=== PATIENT | female | born 1940 | race Caucasian/White ===

== ENCOUNTER 2018-06-06 11:32 | Inpatient (IN) ==
[2018-06-06] MEDS ORDERED: SODIUM CHLORIDE 0.9% 2,000 ML IV STA (11:45)
[2018-06-06] MEDS ORDERED: ALBUTEROL 2.5 MG/3 ML NEB RESP TX STA (12:17)
[2018-06-06 12:24] LABS: Basophils % 0.3 % (0.0-0.8); Eosinophils % 0.5 % (0.00-10.9); Hematocrit 29.2 VOL% (35.7-47.0); Hemoglobin 9.4 GM/DL (12.0-16.0); Immature Granulocytes % 0.5 %; Immature Granulocytes Absolute 0.04 #; Lymphocytes # 0.7 10*3/uL (1.4-4.0); Lymphocytes % 9.3 % (21.3-54.2); Mean Corpuscular HGB Conc 32.2 GM/DL (32-36); Mean Corpuscular Volume 84.9 FL (87-102); Mean Platelet Volume 10.3 FL (9.6-12.0); Monocytes % 6.1 % (1.7-12.7); Neutrophils % 83.3 % (38.7-73.9); Platelet Count 178 T/CUMM (130-400); Red Blood Count 3.44 MC/CUMM (3.8-5.5); Red Cell Distribution Width 13.8 % (9.3-17.3); White Blood Count 7.3 T/CUMM (4-12)
[2018-06-06 12:32] LABS: INR 1.1; PT Patient Result 12.3 SECS
[2018-06-06 12:44] LABS: Albumin 2.8 G/DL (3.4-5.0); Bilirubin,Total 1.6 MG/DL (0.2-1.0); Calcium 8.3 MG/DL (8.5-10.1); Osmolality,Calculated 276.1 MOS/KG (273-304); Total Protein 6.1 G/DL (6.4-8.3)
[2018-06-06 12:51] LABS: ABG Base Excess -2.4 MMOL/L (-2.5-2.5); ABG HCO3 22.3 MMOL/L (20-26); ABG Oxygen Saturation 93.3 % (95-100); ABG PCO2 41.4 MM HG (35-48); ABG PH 7.352 (7.35-7.45); ABG PO2 71.9 MM HG (80-95); ABG TCO2 21.5 MMOL/L (23-27)
[2018-06-06] MEDS ORDERED: PIPERACILLIN/TAZOBACTAM 3,375 MG in SODIUM CHLORIDE 0.9% 100 ML IV STA (12:54)
[2018-06-06 12:57] LABS: Amorphous Crystals,Urine Occasional /HPF (Few); Apearance,Urine CLOUDY (Clear); Blood, Urine Negative (Negative); Glucose,Urine (UA) 50 mg/dL (Negative); Ketones,Urine Negative (Negative); Mucus,Urine Many /LPF (Occasional); Nitrite,Urine Negative (Negative); Protein,Urine Negative; RBC,Urine 3 /HPF (0-4); Squamous Epithelial Cell,Urine Occasional /HPF (0-10); Urine Color Amber (Yellow); Urine Specific Gravity 1.025 (1.001-1.035)
[2018-06-06 12:58] LABS: Bilirubin,Urine Small mg/dL (Negative)
[2018-06-06] MEDS ORDERED: ONDANSETRON 4 MG/2 ML VIAL IV PRN (13:26)
[2018-06-06] MEDS ORDERED: PROMETHAZINE 25 MG/1 ML VIAL IM PRN (13:26)
[2018-06-06] MEDS ORDERED: ACETAMINOPHEN 325 MG TABLET PO PRN (13:26)
[2018-06-06] MEDS ORDERED: FUROSEMIDE 40 MG/4 ML VIAL IV STA (13:29)
[2018-06-06] MEDS ORDERED: PANTOPRAZOLE 40 MG TABLET PO SCH (13:30)
[2018-06-06] MEDS ORDERED: ONDANSETRON 4 MG TABLET PO PRN (13:30)
[2018-06-06] MEDS ORDERED: ENOXAPARIN 40 MG/0.4 ML SYRINGE SUBCUT SCH (13:30)
[2018-06-06] MEDS ORDERED: ENOXAPARIN 40 MG/0.4 ML SYRINGE SUBCUT STA (13:34)
[2018-06-06 13:54] LABS: Thyroid Stimulating Hormone 2.06 uIU/ml (0.358-3.74)
[2018-06-06] MEDS ORDERED: SODIUM CHLORIDE 0.9% 1,000 ML IV STA (13:58)
[2018-06-06] MEDS ORDERED: LEVOFLOXACIN INJ 750 MG in PREMIX 1 EACH IV STA (13:59)
[2018-06-06] MEDS ORDERED: GABAPENTIN 300 MG CAPSULE PO SCH (15:00)
[2018-06-06] MEDS ORDERED: NOREPINEPHRINE 8 MG in SODIUM CHLORIDE 0.9% 242 ML IV PRN (15:26)
[2018-06-06] MEDS ORDERED: GLUCAGON 1 MG VIAL IM PRN (15:46)
[2018-06-06] MEDS ORDERED: DEXTROSE 50% 25 GM/50 ML VIAL IV PRN (15:46)
[2018-06-06] MEDS: methylPREDNISolone SOD SUC 40 MG/1 ML VIAL IV SCH (16:15)
[2018-06-06] MEDS: LACTATED RINGERS 1,000 ML IV SCH ×2 (16:15→23:41)
[2018-06-06] MEDS ORDERED: NOREPINEPHRINE 4 MG/4 ML VIAL IV ONE (16:51)
[2018-06-06 17:01] LABS: Calcium 7.4 MG/DL (8.5-10.1); Osmolality,Calculated 280.7 MOS/KG (273-304)
[2018-06-06] MEDS: INSULIN LISPRO 100 UNIT/ML SUBCUT SCH (19:04)
[2018-06-06] MEDS: BENZONATATE 100 MG CAPSULE PO PRN (19:07)
[2018-06-06] MEDS ORDERED: MAGNESIUM SULF RIDER 4 GM in PREMIX 1 EACH IV PRN (19:19)
[2018-06-06] MEDS: POTASSIUM CHLORIDE RIDER 10 MEQ in PREMIX 1 EACH IV PRN (19:59)
[2018-06-06] MEDS: MAGNESIUM SULF RIDER 2 GM in PREMIX 1 EACH IV PRN (19:59)
[2018-06-06] MEDS: ALBUTEROL/IPRATROPIUM 3 ML NEB RESP TX SCH (20:15)
[2018-06-06] MEDS: DORNASE ALFA 2.5 MG/2.5 ML VIAL RESP TX SCH (20:23)
[2018-06-06] MEDS: SIMVASTATIN 20 MG TABLET PO SCH (20:39)
[2018-06-06] MEDS ORDERED: METOPROLOL TARTRATE 25 MG TABLET PO SCH (21:00)
[2018-06-06] MEDS ORDERED: TERAZOSIN 5 MG CAPSULE PO SCH (21:00)
[2018-06-06] MEDS: PIPERACILLIN/TAZOBACTAM 3,375 MG in SODIUM CHLORIDE 0.9% 100 ML IV SCH (21:57)
[2018-06-07] MEDS: INSULIN LISPRO 100 UNIT/ML SUBCUT SCH ×4 (00:18→17:56)
[2018-06-07] MEDS: ALBUTEROL/IPRATROPIUM 3 ML NEB RESP TX SCH ×4 (00:58→19:20)
[2018-06-07] MEDS: methylPREDNISolone SOD SUC 40 MG/1 ML VIAL IV SCH ×3 (01:32→15:52)
[2018-06-07 04:21] LABS: ABG Base Excess -3.4 MMOL/L (-2.5-2.5); ABG HCO3 21.6 MMOL/L (20-26); ABG Oxygen Saturation 98.6 % (95-100); ABG PCO2 37.2 MM HG (35-48); Allen Test Positive; Pt O2 Delivery Device Other
[2018-06-07] MEDS: LACTATED RINGERS 1,000 ML IV SCH ×3 (04:22→18:01)
[2018-06-07 04:28] LABS: Eosinophils % 0.2 % (0.00-10.9); Hematocrit 24.7 VOL% (35.7-47.0); Hemoglobin 7.8 GM/DL (12.0-16.0); Immature Granulocytes % 0.6 %; Immature Granulocytes Absolute 0.03 #; Lymphocytes # 0.3 10*3/uL (1.4-4.0); Lymphocytes % 7.2 % (21.3-54.2); Mean Corpuscular HGB Conc 31.6 GM/DL (32-36); Mean Corpuscular Volume 85.8 FL (87-102); Mean Platelet Volume 10.5 FL (9.6-12.0); Monocytes % 3.8 % (1.7-12.7); Neutrophils % 88.2 % (38.7-73.9); Platelet Count 158 T/CUMM (130-400); Red Blood Count 2.88 MC/CUMM (3.8-5.5); Red Cell Distribution Width 13.7 % (9.3-17.3); White Blood Count 4.7 T/CUMM (4-12)
[2018-06-07 04:53] LABS: Albumin 1.8 G/DL (3.4-5.0); Bilirubin,Total 0.7 MG/DL (0.2-1.0); Calcium 8.1 MG/DL (8.5-10.1); Osmolality,Calculated 281.5 MOS/KG (273-304); Risk Ratio 3.92; Total Protein 5.3 G/DL (6.4-8.3); VLDL CHOLESTEROL 14.8 MG/DL
[2018-06-07] MEDS: PIPERACILLIN/TAZOBACTAM 3,375 MG in SODIUM CHLORIDE 0.9% 100 ML IV SCH ×3 (05:40→21:57)
[2018-06-07] MEDS: DORNASE ALFA 2.5 MG/2.5 ML VIAL RESP TX SCH ×2 (07:25→19:20)
[2018-06-07] MEDS ORDERED: SODIUM CHLORIDE 0.9% 1,000 ML IV PRN ×2 (08:31→08:55)
[2018-06-07] MEDS ORDERED: FUROSEMIDE 20 MG/2 ML VIAL IV ONE ×2 (08:32→17:30)
[2018-06-07] MEDS ORDERED: RALOXIFENE 60 MG TABLET PO SCH (09:00)
[2018-06-07] MEDS ORDERED: NON-FORMULARY MEDICATION (Biotin [Biotin] 5,000 MCG) PO SCH (09:00)
[2018-06-07 09:28] LABS: % Iron Saturation 17.7 % (18-50)
[2018-06-07] MEDS ORDERED: VANCOMYCIN INJ 1,750 MG in SODIUM CHLORIDE 0.9% 500 ML IV ONE (09:30)
[2018-06-07 09:36] LABS: Folate > 24.0 NG/ML (5.4-24.0); Vitamin B12 750 PG/ML (211-911)
[2018-06-07] MEDS: PANTOPRAZOLE 40 MG TABLET PO SCH (10:07)
[2018-06-07] MEDS: ASPIRIN EC 81 MG TABLET PO SCH (10:08)
[2018-06-07] MEDS: CALCIUM (CARBONATE)/VITAMIN D 600 MG-400 UNIT TABLET PO SCH (10:08)
[2018-06-07] MEDS: BENZONATATE 100 MG CAPSULE PO PRN ×2 (10:09→23:30)
[2018-06-07] MEDS: SERTRALINE 100 MG TABLET PO SCH (10:09)
[2018-06-07] MEDS: CHOLECALCIFEROL 1,000 UNIT TABLET PO SCH (10:09)
[2018-06-07] MEDS: MULTIVITAMIN (CENTRUM) TABLET PO SCH (10:09)
[2018-06-07] MEDS ORDERED: ALBUTEROL/IPRATROPIUM 3 ML NEB RESP TX PRN (10:46)
[2018-06-07] MEDS: MONTELUKAST 10 MG TABLET PO SCH (13:12)
[2018-06-07] MEDS ORDERED: BISACODYL 10 MG SUPP RECTAL ONE ×2 (13:48→21:14)
[2018-06-07] MEDS: METOPROLOL SUCCINATE XL 25 MG TABLET PO SCH ×2 (14:16→21:56)
[2018-06-07] MEDS: ENOXAPARIN 40 MG/0.4 ML SYRINGE SUBCUT SCH (15:05)
[2018-06-07] MEDS: POLYETHYLENE GLYCOL POWDER 17 GM PACK PO SCH (15:05)
[2018-06-07] MEDS: LEVOFLOXACIN INJ 750 MG in PREMIX 1 EACH IV SCH (15:55)
[2018-06-07 19:34] LABS: Hematocrit 29.8 VOL% (35.7-47.0); Hemoglobin 9.5 GM/DL (12.0-16.0)
[2018-06-07] MEDS: SIMVASTATIN 20 MG TABLET PO SCH (21:56)
[2018-06-07] MEDS: VANCOMYCIN INJ 1,250 MG in SODIUM CHLORIDE 0.9% 250 ML IV SCH (21:57)
[2018-06-08] MEDS: methylPREDNISolone SOD SUC 40 MG/1 ML VIAL IV SCH ×3 (00:11→16:02)
[2018-06-08] MEDS: INSULIN LISPRO 100 UNIT/ML SUBCUT SCH ×4 (00:11→18:35)
[2018-06-08] MEDS: LACTATED RINGERS 1,000 ML IV SCH ×3 (00:11→18:36)
[2018-06-08] MEDS: ALBUTEROL/IPRATROPIUM 3 ML NEB RESP TX SCH ×4 (00:24→19:07)
[2018-06-08 04:50] LABS: Basophils % 0.1 % (0.0-0.8); Hematocrit 29.1 VOL% (35.7-47.0); Hemoglobin 9.4 GM/DL (12.0-16.0); Immature Granulocytes % 0.9 %; Immature Granulocytes Absolute 0.07 #; Lymphocytes # 0.3 10*3/uL (1.4-4.0); Lymphocytes % 4.1 % (21.3-54.2); Mean Corpuscular HGB Conc 32.3 GM/DL (32-36); Mean Corpuscular Volume 85.3 FL (87-102); Mean Platelet Volume 9.9 FL (9.6-12.0); Monocytes % 4.3 % (1.7-12.7); Neutrophils % 90.6 % (38.7-73.9); Platelet Count 186 T/CUMM (130-400); Red Blood Count 3.41 MC/CUMM (3.8-5.5); Red Cell Distribution Width 13.7 % (9.3-17.3); White Blood Count 8.1 T/CUMM (4-12)
[2018-06-08 05:06] LABS: Calcium 8.4 MG/DL (8.5-10.1); Osmolality,Calculated 286.3 MOS/KG (273-304)
[2018-06-08 05:22] LABS: Anisocytosis Slight; Lymphocytes 4 % (20-55); Segmented Neutrophils 95 % (50-85); Total Cells Counted 100
[2018-06-08] MEDS: PIPERACILLIN/TAZOBACTAM 3,375 MG in SODIUM CHLORIDE 0.9% 100 ML IV SCH ×3 (05:22→20:50)
[2018-06-08 05:23] LABS: Microcytosis 1+; Ovalocytes Slight
[2018-06-08 05:24] LABS: Platelet Estimate Normal
[2018-06-08] MEDS: MAGNESIUM SULF RIDER 2 GM in PREMIX 1 EACH IV PRN (06:24)
[2018-06-08] MEDS: DORNASE ALFA 2.5 MG/2.5 ML VIAL RESP TX SCH ×2 (07:17→19:07)
[2018-06-08] MEDS ORDERED: FUROSEMIDE 40 MG/4 ML VIAL IV ONE (07:49)
[2018-06-08] MEDS: BENZONATATE 100 MG CAPSULE PO PRN (08:23)
[2018-06-08] MEDS ORDERED: PROPOFOL 1,000 MG/100 ML BOTTLE IV ONE (08:29)
[2018-06-08] MEDS: PROPOFOL 1,000 MG/100 ML BOTTLE IV SCH ×5 (08:50→22:27)
[2018-06-08] MEDS: POLYETHYLENE GLYCOL POWDER 17 GM PACK PO SCH (10:00)
[2018-06-08] MEDS: METOPROLOL SUCCINATE XL 25 MG TABLET PO SCH (10:00)
[2018-06-08] MEDS: SERTRALINE 100 MG TABLET PO SCH (10:00)
[2018-06-08] MEDS: PANTOPRAZOLE 40 MG TABLET PO SCH (10:00)
[2018-06-08] MEDS: MONTELUKAST 10 MG TABLET PO SCH (10:00)
[2018-06-08] MEDS: CHOLECALCIFEROL 1,000 UNIT TABLET PO SCH (10:00)
[2018-06-08] MEDS: ASPIRIN EC 81 MG TABLET PO SCH (10:00)
[2018-06-08] MEDS: DILTIAZEM CD 120 MG CAPSULE PO SCH (10:00)
[2018-06-08] MEDS: CALCIUM (CARBONATE)/VITAMIN D 600 MG-400 UNIT TABLET PO SCH (10:03)
[2018-06-08] MEDS: MULTIVITAMIN (CENTRUM) TABLET PO SCH (10:05)
[2018-06-08 10:09] LABS: ABG Base Excess 0.7 MMOL/L (-2.5-2.5); ABG HCO3 25.1 MMOL/L (20-26); ABG Oxygen Saturation 99.3 % (95-100); ABG PCO2 49.1 MM HG (35-48); ABG PH 7.346 (7.35-7.45); ABG TCO2 24.7 MMOL/L (23-27); Allen Test Positive; Pt O2 Delivery Device Ventilator
[2018-06-08] MEDS: VANCOMYCIN INJ 1,250 MG in SODIUM CHLORIDE 0.9% 250 ML IV SCH ×2 (12:40→23:05)
[2018-06-08] MEDS: ENOXAPARIN 40 MG/0.4 ML SYRINGE SUBCUT SCH (16:01)
[2018-06-08] MEDS: LEVOFLOXACIN INJ 750 MG in PREMIX 1 EACH IV SCH (16:02)
[2018-06-08] MEDS: METOPROLOL TARTRATE 25 MG TABLET PO SCH (20:49)
[2018-06-08] MEDS: guaiFENesin 200 MG/10 ML UDCUP PO SCH (20:49)
[2018-06-08] MEDS: ROSUVASTATIN 10 MG TABLET PO SCH (20:53)
[2018-06-09] MEDS: INSULIN LISPRO 100 UNIT/ML SUBCUT SCH ×4 (00:04→17:51)
[2018-06-09] MEDS: methylPREDNISolone SOD SUC 40 MG/1 ML VIAL IV SCH ×3 (00:39→16:11)
[2018-06-09] MEDS: guaiFENesin 200 MG/10 ML UDCUP PO SCH ×6 (00:39→20:05)
[2018-06-09] MEDS: ALBUTEROL/IPRATROPIUM 3 ML NEB RESP TX SCH ×4 (01:15→19:02)
[2018-06-09] MEDS: PROPOFOL 1,000 MG/100 ML BOTTLE IV SCH ×6 (01:28→21:28)
[2018-06-09] MEDS: LACTATED RINGERS 1,000 ML IV SCH ×3 (01:42→20:04)
[2018-06-09 04:30] LABS: Hematocrit 29.2 VOL% (35.7-47.0); Hemoglobin 9.4 GM/DL (12.0-16.0); Immature Granulocytes % 0.5 %; Immature Granulocytes Absolute 0.03 #; Lymphocytes # 0.3 10*3/uL (1.4-4.0); Lymphocytes % 4.2 % (21.3-54.2); Mean Corpuscular HGB Conc 32.2 GM/DL (32-36); Mean Corpuscular Volume 85.6 FL (87-102); Mean Platelet Volume 10.9 FL (9.6-12.0); Monocytes % 4.8 % (1.7-12.7); Neutrophils % 90.5 % (38.7-73.9); Platelet Count 230 T/CUMM (130-400); Red Blood Count 3.41 MC/CUMM (3.8-5.5); Red Cell Distribution Width 14.1 % (9.3-17.3)
[2018-06-09 04:54] LABS: Calcium 8.8 MG/DL (8.5-10.1); Osmolality,Calculated 281.5 MOS/KG (273-304)
[2018-06-09 05:01] LABS: Prealbumin 14.3 MG/DL (20-40)
[2018-06-09 05:16] LABS: ABG Base Excess 2.1 MMOL/L (-2.5-2.5); ABG HCO3 26.3 MMOL/L (20-26); ABG PH 7.341 (7.35-7.45); ABG TCO2 26.3 MMOL/L (23-27)
[2018-06-09 05:21] LABS: Hypochromasia Slight; Lymphocytes 1 % (20-55); Pappenheimer Bodies Few; Platelet Estimate Adequate; Segmented Neutrophils 97 % (50-85); Total Cells Counted 100
[2018-06-09] MEDS: PIPERACILLIN/TAZOBACTAM 3,375 MG in SODIUM CHLORIDE 0.9% 100 ML IV SCH ×3 (05:35→20:04)
[2018-06-09] MEDS: DORNASE ALFA 2.5 MG/2.5 ML VIAL RESP TX SCH ×2 (08:09→19:09)
[2018-06-09] MEDS: MONTELUKAST 10 MG TABLET PO SCH (10:07)
[2018-06-09] MEDS: CALCIUM (CARBONATE)/VITAMIN D 600 MG-400 UNIT TABLET PO SCH (10:07)
[2018-06-09] MEDS: SERTRALINE 100 MG TABLET PO SCH (10:07)
[2018-06-09] MEDS: METOPROLOL TARTRATE 25 MG TABLET PO SCH ×2 (10:07→20:05)
[2018-06-09] MEDS: DILTIAZEM CD 120 MG CAPSULE PO SCH (10:08)
[2018-06-09] MEDS: VANCOMYCIN INJ 1,250 MG in SODIUM CHLORIDE 0.9% 250 ML IV SCH ×2 (10:09→22:11)
[2018-06-09] MEDS: MULTIVITAMIN (CENTRUM) TABLET PO SCH (10:13)
[2018-06-09] MEDS: CHOLECALCIFEROL 1,000 UNIT TABLET PO SCH (10:13)
[2018-06-09 11:22] LABS: ABG Base Excess 3.6 MMOL/L (-2.5-2.5); ABG HCO3 27.7 MMOL/L (20-26); ABG Oxygen Saturation 99.3 % (95-100); ABG PCO2 46.7 MM HG (35-48); ABG PH 7.401 (7.35-7.45); ABG TCO2 26.6 MMOL/L (23-27); Pt O2 Delivery Device Ventilator
[2018-06-09] MEDS: ASPIRIN EC 81 MG TABLET PO SCH (11:23)
[2018-06-09] MEDS: PANTOPRAZOLE 40 MG TABLET PO SCH (11:24)
[2018-06-09] MEDS: FLUCONAZOLE INJ 100 MG in IV BAG 1 EACH IV SCH (15:19)
[2018-06-09] MEDS: POLYETHYLENE GLYCOL POWDER 17 GM PACK PO SCH (15:55)
[2018-06-09] MEDS: ASPIRIN CHEW 81 MG TABLET PO SCH (16:06)
[2018-06-09] MEDS: LEVOFLOXACIN INJ 750 MG in PREMIX 1 EACH IV SCH (16:10)
[2018-06-09] MEDS: ENOXAPARIN 40 MG/0.4 ML SYRINGE SUBCUT SCH (16:11)
[2018-06-09] MEDS: LANSOPRAZOLE ODT 30 MG TABLET PO SCH (16:12)
[2018-06-09] MEDS: ROSUVASTATIN 10 MG TABLET PO SCH (20:05)
[2018-06-09] MEDS: DILTIAZEM 60 MG TABLET PO SCH (20:05)
[2018-06-10] MEDS: INSULIN LISPRO 100 UNIT/ML SUBCUT SCH ×4 (00:19→17:34)
[2018-06-10] MEDS: ALBUTEROL/IPRATROPIUM 3 ML NEB RESP TX SCH ×4 (00:35→18:42)
[2018-06-10] MEDS: guaiFENesin 200 MG/10 ML UDCUP PO SCH ×6 (00:37→21:27)
[2018-06-10] MEDS: methylPREDNISolone SOD SUC 40 MG/1 ML VIAL IV SCH ×3 (00:37→16:02)
[2018-06-10] MEDS: PROPOFOL 1,000 MG/100 ML BOTTLE IV SCH ×5 (00:48→10:40)
[2018-06-10 04:06] LABS: ABG Base Excess 5.1 MMOL/L (-2.5-2.5); ABG HCO3 29.8 MMOL/L (20-26); ABG Oxygen Saturation 98.1 % (95-100); ABG PCO2 44.3 MM HG (35-48); ABG PH 7.445 (7.35-7.45); ABG PO2 133.1 MM HG (80-95); ABG TCO2 31.1 MMOL/L (23-27); Allen Test Positive; Pt O2 Delivery Device Ventilator
[2018-06-10] MEDS: MORPHINE 4 MG/1 ML VIAL IV PRN ×2 (04:19→06:41)
[2018-06-10] MEDS: PIPERACILLIN/TAZOBACTAM 3,375 MG in SODIUM CHLORIDE 0.9% 100 ML IV SCH ×3 (05:14→21:27)
[2018-06-10 05:42] LABS: Eosinophils % 0.2 % (0.00-10.9); Hematocrit 27.3 VOL% (35.7-47.0); Hemoglobin 8.7 GM/DL (12.0-16.0); Immature Granulocytes % 0.4 %; Immature Granulocytes Absolute 0.02 #; Lymphocytes # 0.2 10*3/uL (1.4-4.0); Lymphocytes % 3.9 % (21.3-54.2); Mean Corpuscular HGB Conc 31.9 GM/DL (32-36); Mean Corpuscular Volume 85.8 FL (87-102); Mean Platelet Volume 10.6 FL (9.6-12.0); Monocytes % 3.5 % (1.7-12.7); Platelet Count 210 T/CUMM (130-400); Red Blood Count 3.18 MC/CUMM (3.8-5.5); White Blood Count 4.6 T/CUMM (4-12)
[2018-06-10 05:51] LABS: Calcium 8.2 MG/DL (8.5-10.1); Osmolality,Calculated 280.5 MOS/KG (273-304)
[2018-06-10 06:06] LABS: Band Neutrophils 1 % (0-10); Hypochromasia 1+; Lymphocytes 3 % (20-55); Microcytosis Slight; Ovalocytes Slight; Platelet Estimate Adequate; Segmented Neutrophils 91 % (50-85); Total Cells Counted 100
[2018-06-10] MEDS: MAGNESIUM SULF RIDER 2 GM in PREMIX 1 EACH IV PRN (06:40)
[2018-06-10] MEDS: DORNASE ALFA 2.5 MG/2.5 ML VIAL RESP TX SCH ×2 (07:14→18:47)
[2018-06-10] MEDS ORDERED: LANSOPRAZOLE ODT 30 MG TABLET PO SCH (09:00)
[2018-06-10] MEDS ORDERED: ASPIRIN CHEW 81 MG TABLET PO SCH (09:00)
[2018-06-10] MEDS: fentaNYL INJ 1,250 MCG in SODIUM CHLORIDE 0.9% 225 ML IV PRN ×3 (09:33→18:56)
[2018-06-10] MEDS ORDERED: MAGNESIUM SULF RIDER 2 GM in PREMIX 1 EACH IV ONE (09:33)
[2018-06-10] MEDS: MIDAZOLAM 100 MG in SODIUM CHLORIDE 0.9% 80 ML IV SCH (09:33)
[2018-06-10] MEDS: CHOLECALCIFEROL 1,000 UNIT TABLET PO SCH (09:37)
[2018-06-10] MEDS: CALCIUM (CARBONATE)/VITAMIN D 600 MG-400 UNIT TABLET PO SCH (09:37)
[2018-06-10] MEDS: METOPROLOL TARTRATE 25 MG TABLET PO SCH ×2 (09:38→21:27)
[2018-06-10] MEDS: ASPIRIN CHEW 81 MG TABLET PO SCH (09:38)
[2018-06-10] MEDS: MONTELUKAST 10 MG TABLET PO SCH (09:38)
[2018-06-10] MEDS: MULTIVITAMIN (CENTRUM) TABLET PO SCH (09:40)
[2018-06-10] MEDS: POLYETHYLENE GLYCOL POWDER 17 GM PACK PO SCH (09:40)
[2018-06-10] MEDS: DILTIAZEM 60 MG TABLET PO SCH ×2 (09:40→21:27)
[2018-06-10] MEDS: LANSOPRAZOLE ODT 30 MG TABLET PO SCH (09:41)
[2018-06-10] MEDS: SERTRALINE 100 MG TABLET PO SCH (09:41)
[2018-06-10] MEDS: LACTATED RINGERS 1,000 ML IV SCH ×2 (09:41→21:35)
[2018-06-10] MEDS: VANCOMYCIN INJ 1,250 MG in SODIUM CHLORIDE 0.9% 250 ML IV SCH ×2 (10:04→22:57)
[2018-06-10] MEDS: FLUCONAZOLE INJ 100 MG in IV BAG 1 EACH IV SCH (12:35)
[2018-06-10] MEDS: ENOXAPARIN 40 MG/0.4 ML SYRINGE SUBCUT SCH (16:02)
[2018-06-10] MEDS: LEVOFLOXACIN INJ 750 MG in PREMIX 1 EACH IV SCH (16:03)
[2018-06-10] MEDS: ROSUVASTATIN 10 MG TABLET PO SCH (21:28)
[2018-06-10] MEDS: fentaNYL INJ 2,500 MCG in SODIUM CHLORIDE 0.9% 450 ML IV PRN (22:48)
[2018-06-11] MEDS: INSULIN LISPRO 100 UNIT/ML SUBCUT SCH ×4 (00:48→18:07)
[2018-06-11] MEDS: methylPREDNISolone SOD SUC 40 MG/1 ML VIAL IV SCH ×3 (00:53→16:12)
[2018-06-11] MEDS: guaiFENesin 200 MG/10 ML UDCUP PO SCH ×6 (00:53→20:25)
[2018-06-11] MEDS: ALBUTEROL/IPRATROPIUM 3 ML NEB RESP TX SCH ×4 (01:10→19:49)
[2018-06-11 03:13] LABS: ABG Base Excess 4.7 MMOL/L (-2.5-2.5); ABG HCO3 28.7 MMOL/L (20-26); ABG Oxygen Saturation 98.1 % (95-100); ABG PCO2 46.6 MM HG (35-48); ABG PH 7.416 (7.35-7.45); ABG TCO2 27.4 MMOL/L (23-27); Allen Test Positive; Pt O2 Delivery Device Ventilator
[2018-06-11 04:10] LABS: Hematocrit 27.9 VOL% (35.7-47.0); Immature Granulocytes % 0.8 %; Immature Granulocytes Absolute 0.04 #; Lymphocytes # 0.3 10*3/uL (1.4-4.0); Lymphocytes % 5.8 % (21.3-54.2); Mean Corpuscular HGB Conc 32.3 GM/DL (32-36); Mean Corpuscular Volume 85.8 FL (87-102); Monocytes % 3.9 % (1.7-12.7); Neutrophils % 89.5 % (38.7-73.9); Platelet Count 189 T/CUMM (130-400); Red Blood Count 3.25 MC/CUMM (3.8-5.5); Red Cell Distribution Width 13.9 % (9.3-17.3); White Blood Count 4.8 T/CUMM (4-12)
[2018-06-11 04:21] LABS: Osmolality,Calculated 280.5 MOS/KG (273-304)
[2018-06-11 05:11] LABS: HIV Antigen/Antibody Result Nonreactive (Nonreactive); Hepatitis B Surface Ag Quant < 0.10 Index; Hepatitis B Surface Ag Result Negative (Negative); Hepatitis C Virus Ab Result Negative (Negative)
[2018-06-11] MEDS: PIPERACILLIN/TAZOBACTAM 3,375 MG in SODIUM CHLORIDE 0.9% 100 ML IV SCH ×3 (05:55→20:26)
[2018-06-11] MEDS: fentaNYL INJ 2,500 MCG in SODIUM CHLORIDE 0.9% 450 ML IV PRN ×2 (07:24→16:11)
[2018-06-11] MEDS ORDERED: FUROSEMIDE 40 MG/4 ML VIAL IV ONE (07:25)
[2018-06-11] MEDS: DORNASE ALFA 2.5 MG/2.5 ML VIAL RESP TX SCH ×2 (07:25→19:56)
[2018-06-11] MEDS: MIDAZOLAM 100 MG in SODIUM CHLORIDE 0.9% 80 ML IV SCH ×2 (09:27→14:00)
[2018-06-11] MEDS: MONTELUKAST 10 MG TABLET PO SCH (09:28)
[2018-06-11] MEDS: DILTIAZEM 60 MG TABLET PO SCH ×2 (09:28→20:25)
[2018-06-11] MEDS: POLYETHYLENE GLYCOL POWDER 17 GM PACK PO SCH (09:28)
[2018-06-11] MEDS: MULTIVITAMIN (CENTRUM) TABLET PO SCH (09:29)
[2018-06-11] MEDS: CHOLECALCIFEROL 1,000 UNIT TABLET PO SCH (09:29)
[2018-06-11] MEDS: SERTRALINE 100 MG TABLET PO SCH (09:29)
[2018-06-11] MEDS: ASPIRIN CHEW 81 MG TABLET PO SCH (09:29)
[2018-06-11] MEDS: METOPROLOL TARTRATE 25 MG TABLET PO SCH ×2 (09:29→20:26)
[2018-06-11] MEDS: LANSOPRAZOLE ODT 30 MG TABLET PO SCH (09:29)
[2018-06-11] MEDS: CALCIUM (CARBONATE)/VITAMIN D 600 MG-400 UNIT TABLET PO SCH (09:29)
[2018-06-11] MEDS: PROPOFOL 1,000 MG/100 ML BOTTLE IV SCH (10:50)
[2018-06-11] MEDS: VANCOMYCIN INJ 1,250 MG in SODIUM CHLORIDE 0.9% 250 ML IV SCH ×2 (11:02→22:45)
[2018-06-11] MEDS: FLUCONAZOLE INJ 100 MG in IV BAG 1 EACH IV SCH (12:22)
[2018-06-11] MEDS: ENOXAPARIN 40 MG/0.4 ML SYRINGE SUBCUT SCH (14:04)
[2018-06-11] MEDS: LEVOFLOXACIN INJ 750 MG in PREMIX 1 EACH IV SCH (16:12)
[2018-06-11] MEDS: ROSUVASTATIN 10 MG TABLET PO SCH (20:25)
[2018-06-11] MEDS: cycloSPORINE OPH EMUL 1 VIAL BOTH EYES SCH (22:45)
[2018-06-12] MEDS: INSULIN LISPRO 100 UNIT/ML SUBCUT SCH ×5 (00:13→23:21)
[2018-06-12] MEDS: guaiFENesin 200 MG/10 ML UDCUP PO SCH ×6 (00:15→20:26)
[2018-06-12] MEDS: methylPREDNISolone SOD SUC 40 MG/1 ML VIAL IV SCH ×4 (00:16→23:53)
[2018-06-12] MEDS: fentaNYL INJ 2,500 MCG in SODIUM CHLORIDE 0.9% 450 ML IV PRN ×4 (00:40→23:53)
[2018-06-12] MEDS: ALBUTEROL/IPRATROPIUM 3 ML NEB RESP TX SCH ×4 (02:23→19:34)
[2018-06-12 03:26] LABS: ABG Base Excess 7.7 MMOL/L (-2.5-2.5); ABG HCO3 31.5 MMOL/L (20-26); ABG PCO2 45.5 MM HG (35-48); ABG PH 7.462 (7.35-7.45); ABG TCO2 29.2 MMOL/L (23-27); Allen Test Positive; Pt O2 Delivery Device Ventilator
[2018-06-12] MEDS: PIPERACILLIN/TAZOBACTAM 3,375 MG in SODIUM CHLORIDE 0.9% 100 ML IV SCH ×3 (05:21→20:25)
[2018-06-12 05:57] LABS: Hematocrit 29.4 VOL% (35.7-47.0); Hemoglobin 9.5 GM/DL (12.0-16.0); Immature Granulocytes % 1.5 %; Immature Granulocytes Absolute 0.08 #; Lymphocytes # 0.3 10*3/uL (1.4-4.0); Lymphocytes % 4.8 % (21.3-54.2); Mean Corpuscular HGB Conc 32.3 GM/DL (32-36); Mean Corpuscular Volume 84.5 FL (87-102); Mean Platelet Volume 9.8 FL (9.6-12.0); Neutrophils % 89.7 % (38.7-73.9); Platelet Count 200 T/CUMM (130-400); Red Blood Count 3.48 MC/CUMM (3.8-5.5); Red Cell Distribution Width 13.5 % (9.3-17.3); White Blood Count 5.2 T/CUMM (4-12)
[2018-06-12 06:11] LABS: Osmolality,Calculated 281.7 MOS/KG (273-304)
[2018-06-12 06:22] LABS: Prealbumin 12.4 MG/DL (20-40)
[2018-06-12 06:24] LABS: Hypochromasia 1+; Lymphocytes 2 % (20-55); Ovalocytes Slight; Platelet Estimate Adequate; Segmented Neutrophils 97 % (50-85); Total Cells Counted 100
[2018-06-12 06:25] LABS: Microcytosis Slight
[2018-06-12] MEDS: DORNASE ALFA 2.5 MG/2.5 ML VIAL RESP TX SCH ×2 (06:59→19:45)
[2018-06-12] MEDS: MIDAZOLAM 100 MG in SODIUM CHLORIDE 0.9% 80 ML IV SCH ×2 (09:36→16:08)
[2018-06-12] MEDS: MULTIVITAMIN (CENTRUM) TABLET PO SCH (09:38)
[2018-06-12] MEDS: CALCIUM (CARBONATE)/VITAMIN D 600 MG-400 UNIT TABLET PO SCH (09:38)
[2018-06-12] MEDS: CHOLECALCIFEROL 1,000 UNIT TABLET PO SCH (09:38)
[2018-06-12] MEDS: DILTIAZEM 60 MG TABLET PO SCH ×2 (09:38→20:26)
[2018-06-12] MEDS: METOPROLOL TARTRATE 25 MG TABLET PO SCH ×2 (09:39→20:26)
[2018-06-12] MEDS: POLYETHYLENE GLYCOL POWDER 17 GM PACK PO SCH (09:39)
[2018-06-12] MEDS: LANSOPRAZOLE ODT 30 MG TABLET PO SCH (09:39)
[2018-06-12] MEDS: ASPIRIN CHEW 81 MG TABLET PO SCH (09:40)
[2018-06-12] MEDS: MONTELUKAST 10 MG TABLET PO SCH (09:40)
[2018-06-12] MEDS: SERTRALINE 100 MG TABLET PO SCH (09:40)
[2018-06-12] MEDS: MAGNESIUM SULF RIDER 2 GM in PREMIX 1 EACH IV PRN (09:46)
[2018-06-12] MEDS: POTASSIUM CHLORIDE RIDER 10 MEQ in PREMIX 1 EACH IV PRN (09:49)
[2018-06-12] MEDS: cycloSPORINE OPH EMUL 1 VIAL BOTH EYES SCH ×2 (09:50→20:28)
[2018-06-12] MEDS: PROPOFOL 1,000 MG/100 ML BOTTLE IV SCH (10:01)
[2018-06-12] MEDS: VANCOMYCIN INJ 1,250 MG in SODIUM CHLORIDE 0.9% 250 ML IV SCH ×2 (11:26→22:08)
[2018-06-12] MEDS: FLUCONAZOLE INJ 100 MG in IV BAG 1 EACH IV SCH (11:46)
[2018-06-12] MEDS: ENOXAPARIN 40 MG/0.4 ML SYRINGE SUBCUT SCH (15:36)
[2018-06-12] MEDS: LEVOFLOXACIN INJ 750 MG in PREMIX 1 EACH IV SCH (15:50)
[2018-06-12] MEDS: ROSUVASTATIN 10 MG TABLET PO SCH (20:26)
[2018-06-12] MEDS ORDERED: BISACODYL 10 MG SUPP RECTAL PRN (23:57)
[2018-06-13] MEDS: guaiFENesin 200 MG/10 ML UDCUP PO SCH ×6 (00:18→20:16)
[2018-06-13] MEDS: ALBUTEROL/IPRATROPIUM 3 ML NEB RESP TX SCH ×4 (00:59→19:15)
[2018-06-13] MEDS ORDERED: hydrALAZINE 20 MG/1 ML VIAL ONE (02:20)
[2018-06-13] MEDS ORDERED: hydrALAZINE 20 MG/1 ML VIAL IV ONE (02:25)
[2018-06-13 05:01] LABS: ABG HCO3 30.9 MMOL/L (20-26); ABG Oxygen Saturation 99.2 % (95-100); ABG TCO2 28.8 MMOL/L (23-27)
[2018-06-13] MEDS: PIPERACILLIN/TAZOBACTAM 3,375 MG in SODIUM CHLORIDE 0.9% 100 ML IV SCH ×3 (05:39→20:16)
[2018-06-13 05:57] LABS: Basophils % 0.2 % (0.0-0.8); Hemoglobin 9.5 GM/DL (12.0-16.0); Immature Granulocytes % 0.9 %; Immature Granulocytes Absolute 0.05 #; Lymphocytes # 0.3 10*3/uL (1.4-4.0); Lymphocytes % 4.9 % (21.3-54.2); Mean Corpuscular HGB Conc 31.7 GM/DL (32-36); Mean Corpuscular Volume 85.7 FL (87-102); Monocytes % 4.7 % (1.7-12.7); Neutrophils % 89.3 % (38.7-73.9); Platelet Count 193 T/CUMM (130-400); Red Cell Distribution Width 13.3 % (9.3-17.3); White Blood Count 5.7 T/CUMM (4-12)
[2018-06-13] MEDS: MIDAZOLAM 100 MG in SODIUM CHLORIDE 0.9% 80 ML IV PRN (06:03)
[2018-06-13] MEDS: INSULIN LISPRO 100 UNIT/ML SUBCUT SCH ×3 (06:07→18:12)
[2018-06-13 06:19] LABS: Calcium 8.5 MG/DL (8.5-10.1); Osmolality,Calculated 283.5 MOS/KG (273-304)
[2018-06-13 06:23] LABS: Band Neutrophils 3 % (0-10); Hypochromasia 1+; Lymphocytes 8 % (20-55); Platelet Estimate Adequate; Segmented Neutrophils 83 % (50-85); Total Cells Counted 100
[2018-06-13 06:24] LABS: Microcytosis Slight
[2018-06-13] MEDS: fentaNYL INJ 2,500 MCG in SODIUM CHLORIDE 0.9% 450 ML IV PRN ×3 (06:40→21:53)
[2018-06-13] MEDS: DORNASE ALFA 2.5 MG/2.5 ML VIAL RESP TX SCH ×2 (07:09→19:20)
[2018-06-13] MEDS: PROPOFOL 1,000 MG/100 ML BOTTLE IV SCH (09:20)
[2018-06-13] MEDS: methylPREDNISolone SOD SUC 40 MG/1 ML VIAL IV SCH ×2 (09:22→15:30)
[2018-06-13] MEDS: MULTIVITAMIN (CENTRUM) TABLET PO SCH (09:22)
[2018-06-13] MEDS: CALCIUM (CARBONATE)/VITAMIN D 600 MG-400 UNIT TABLET PO SCH (09:22)
[2018-06-13] MEDS: DILTIAZEM 60 MG TABLET PO SCH ×2 (09:22→20:16)
[2018-06-13] MEDS: POLYETHYLENE GLYCOL POWDER 17 GM PACK PO SCH (09:22)
[2018-06-13] MEDS: METOPROLOL TARTRATE 25 MG TABLET PO SCH ×2 (09:22→20:16)
[2018-06-13] MEDS: LANSOPRAZOLE ODT 30 MG TABLET PO SCH (09:22)
[2018-06-13] MEDS: ASPIRIN CHEW 81 MG TABLET PO SCH (09:22)
[2018-06-13] MEDS: CHOLECALCIFEROL 1,000 UNIT TABLET PO SCH (09:23)
[2018-06-13] MEDS: MONTELUKAST 10 MG TABLET PO SCH (09:23)
[2018-06-13] MEDS: SERTRALINE 100 MG TABLET PO SCH (09:23)
[2018-06-13] MEDS: cycloSPORINE OPH EMUL 1 VIAL BOTH EYES SCH ×2 (09:23→20:17)
[2018-06-13] MEDS: VANCOMYCIN INJ 1,250 MG in SODIUM CHLORIDE 0.9% 250 ML IV SCH ×2 (11:30→22:33)
[2018-06-13] MEDS: FLUCONAZOLE INJ 100 MG in IV BAG 1 EACH IV SCH (11:30)
[2018-06-13] MEDS: LEVOFLOXACIN INJ 750 MG in PREMIX 1 EACH IV SCH (15:14)
[2018-06-13] MEDS: ENOXAPARIN 40 MG/0.4 ML SYRINGE SUBCUT SCH (15:14)
[2018-06-13] MEDS: hydrALAZINE 20 MG/1 ML VIAL IV PRN (18:10)
[2018-06-13] MEDS: ROSUVASTATIN 10 MG TABLET PO SCH (20:16)
[2018-06-14] MEDS: INSULIN LISPRO 100 UNIT/ML SUBCUT SCH ×4 (00:04→17:53)
[2018-06-14] MEDS: methylPREDNISolone SOD SUC 40 MG/1 ML VIAL IV SCH ×3 (00:08→20:55)
[2018-06-14] MEDS: guaiFENesin 200 MG/10 ML UDCUP PO SCH ×3 (01:04→10:52)
[2018-06-14] MEDS: ALBUTEROL/IPRATROPIUM 3 ML NEB RESP TX SCH ×4 (01:20→20:07)
[2018-06-14 03:58] LABS: ABG Base Excess 6.2 MMOL/L (-2.5-2.5); ABG HCO3 30.1 MMOL/L (20-26); ABG Oxygen Saturation 99.4 % (95-100); ABG PCO2 48.4 MM HG (35-48); ABG PH 7.423 (7.35-7.45); ABG TCO2 28.5 MMOL/L (23-27); Allen Test Positive; Pt O2 Delivery Device Ventilator
[2018-06-14] MEDS: fentaNYL INJ 2,500 MCG in SODIUM CHLORIDE 0.9% 450 ML IV PRN ×2 (05:05→20:56)
[2018-06-14 05:12] LABS: Calcium 8.5 MG/DL (8.5-10.1); Osmolality,Calculated 278.8 MOS/KG (273-304)
[2018-06-14] MEDS: PIPERACILLIN/TAZOBACTAM 3,375 MG in SODIUM CHLORIDE 0.9% 100 ML IV SCH (05:44)
[2018-06-14] MEDS: DORNASE ALFA 2.5 MG/2.5 ML VIAL RESP TX SCH ×2 (08:05→20:07)
[2018-06-14] MEDS: LACTULOSE 20 GM/30 ML UDCUP PO SCH ×4 (09:35→21:40)
[2018-06-14] MEDS: MULTIVITAMIN (CENTRUM) TABLET PO SCH (09:35)
[2018-06-14] MEDS: POLYETHYLENE GLYCOL POWDER 17 GM PACK PO SCH (09:35)
[2018-06-14] MEDS: CALCIUM (CARBONATE)/VITAMIN D 600 MG-400 UNIT TABLET PO SCH (09:35)
[2018-06-14] MEDS: CHOLECALCIFEROL 1,000 UNIT TABLET PO SCH (09:35)
[2018-06-14] MEDS: MONTELUKAST 10 MG TABLET PO SCH (09:35)
[2018-06-14] MEDS: SERTRALINE 100 MG TABLET PO SCH (09:35)
[2018-06-14] MEDS: LANSOPRAZOLE ODT 30 MG TABLET PO SCH (09:36)
[2018-06-14] MEDS: METOPROLOL TARTRATE 25 MG TABLET PO SCH ×2 (09:36→20:53)
[2018-06-14] MEDS: DILTIAZEM 60 MG TABLET PO SCH ×2 (09:36→20:53)
[2018-06-14] MEDS: PROPOFOL 1,000 MG/100 ML BOTTLE IV SCH (09:37)
[2018-06-14] MEDS: cycloSPORINE OPH EMUL 1 VIAL BOTH EYES SCH ×2 (09:42→20:55)
[2018-06-14] MEDS: ASPIRIN CHEW 81 MG TABLET PO SCH (09:43)
[2018-06-14] MEDS: FLUCONAZOLE INJ 100 MG in IV BAG 1 EACH IV SCH (12:02)
[2018-06-14] MEDS: MIDAZOLAM 100 MG in SODIUM CHLORIDE 0.9% 80 ML IV PRN (15:24)
[2018-06-14] MEDS: ENOXAPARIN 40 MG/0.4 ML SYRINGE SUBCUT SCH (18:39)
[2018-06-14] MEDS: ROSUVASTATIN 10 MG TABLET PO SCH (20:53)
[2018-06-15] MEDS: ALBUTEROL/IPRATROPIUM 3 ML NEB RESP TX SCH ×4 (00:34→19:18)
[2018-06-15] MEDS: INSULIN LISPRO 100 UNIT/ML SUBCUT SCH ×4 (00:53→17:46)
[2018-06-15 03:36] LABS: Allen Test Positive; Pt O2 Delivery Device Ventilator
[2018-06-15 03:37] LABS: ABG HCO3 30.9 MMOL/L (20-26); ABG Oxygen Saturation 98.8 % (95-100); ABG PCO2 62.4 MM HG (35-48); ABG PH 7.349 (7.35-7.45); ABG TCO2 31.7 MMOL/L (23-27)
[2018-06-15 05:28] LABS: Eosinophils % 0.2 % (0.00-10.9); Immature Granulocytes % 0.8 %; Immature Granulocytes Absolute 0.04 #; Lymphocytes # 0.4 10*3/uL (1.4-4.0); Lymphocytes % 8.2 % (21.3-54.2); Mean Corpuscular Volume 87.9 FL (87-102); Mean Platelet Volume 9.9 FL (9.6-12.0); Monocytes % 5.3 % (1.7-12.7); Neutrophils % 85.5 % (38.7-73.9); Platelet Count 164 T/CUMM (130-400); Red Cell Distribution Width 13.3 % (9.3-17.3); White Blood Count 4.7 T/CUMM (4-12)
[2018-06-15 05:52] LABS: Calcium 8.7 MG/DL (8.5-10.1); Osmolality,Calculated 282.5 MOS/KG (273-304)
[2018-06-15 05:56] LABS: Prealbumin 19.7 MG/DL (20-40)
[2018-06-15] MEDS: fentaNYL INJ 2,500 MCG in SODIUM CHLORIDE 0.9% 450 ML IV PRN (08:03)
[2018-06-15] MEDS: DORNASE ALFA 2.5 MG/2.5 ML VIAL RESP TX SCH ×2 (08:13→19:26)
[2018-06-15] MEDS: CALCIUM (CARBONATE)/VITAMIN D 600 MG-400 UNIT TABLET PO SCH (08:51)
[2018-06-15] MEDS: DILTIAZEM 60 MG TABLET PO SCH ×2 (08:52→20:08)
[2018-06-15] MEDS: LANSOPRAZOLE ODT 30 MG TABLET PO SCH (08:52)
[2018-06-15] MEDS: CHOLECALCIFEROL 1,000 UNIT TABLET PO SCH (08:53)
[2018-06-15] MEDS: POLYETHYLENE GLYCOL POWDER 17 GM PACK PO SCH (08:53)
[2018-06-15] MEDS: METOPROLOL TARTRATE 25 MG TABLET PO SCH ×2 (08:53→20:07)
[2018-06-15] MEDS: MULTIVITAMIN (CENTRUM) TABLET PO SCH (08:53)
[2018-06-15] MEDS: ASPIRIN CHEW 81 MG TABLET PO SCH (08:53)
[2018-06-15] MEDS: SERTRALINE 100 MG TABLET PO SCH (08:53)
[2018-06-15] MEDS: MONTELUKAST 10 MG TABLET PO SCH (08:53)
[2018-06-15] MEDS: methylPREDNISolone SOD SUC 40 MG/1 ML VIAL IV SCH ×2 (08:55→20:08)
[2018-06-15] MEDS: PROPOFOL 1,000 MG/100 ML BOTTLE IV SCH (10:12)
[2018-06-15] MEDS: LACTULOSE 20 GM/30 ML UDCUP PO SCH (10:12)
[2018-06-15] MEDS: FLUCONAZOLE INJ 100 MG in IV BAG 1 EACH IV SCH (13:00)
[2018-06-15] MEDS: cycloSPORINE OPH EMUL 1 VIAL BOTH EYES SCH ×2 (13:08→20:26)
[2018-06-15] MEDS: hydrALAZINE 20 MG/1 ML VIAL IV PRN (16:38)
[2018-06-15] MEDS: ENOXAPARIN 40 MG/0.4 ML SYRINGE SUBCUT SCH (16:38)
[2018-06-15] MEDS: ROSUVASTATIN 10 MG TABLET PO SCH (20:07)
[2018-06-16] MEDS: INSULIN LISPRO 100 UNIT/ML SUBCUT SCH ×4 (00:39→17:54)
[2018-06-16] MEDS: ALBUTEROL/IPRATROPIUM 3 ML NEB RESP TX SCH ×4 (01:21→18:59)
[2018-06-16] MEDS: fentaNYL INJ 2,500 MCG in SODIUM CHLORIDE 0.9% 450 ML IV PRN ×2 (01:28→16:18)
[2018-06-16 04:08] LABS: ABG Base Excess 10.6 MMOL/L (-2.5-2.5); ABG HCO3 34.3 MMOL/L (20-26); ABG Oxygen Saturation 98.3 % (95-100); ABG PCO2 48.7 MM HG (35-48); ABG PH 7.473 (7.35-7.45); ABG PO2 95.6 MM HG (80-95); ABG TCO2 32.6 MMOL/L (23-27); Allen Test Positive; Pt O2 Delivery Device Ventilator
[2018-06-16] MEDS: DORNASE ALFA 2.5 MG/2.5 ML VIAL RESP TX SCH ×2 (07:50→18:59)
[2018-06-16] MEDS: guaiFENesin 200 MG/10 ML UDCUP PO PRN (08:31)
[2018-06-16] MEDS: LACTULOSE 20 GM/30 ML UDCUP PO SCH (08:31)
[2018-06-16] MEDS: MONTELUKAST 10 MG TABLET PO SCH (08:32)
[2018-06-16] MEDS: CALCIUM (CARBONATE)/VITAMIN D 600 MG-400 UNIT TABLET PO SCH (08:32)
[2018-06-16] MEDS: ASPIRIN CHEW 81 MG TABLET PO SCH (08:32)
[2018-06-16] MEDS: MULTIVITAMIN (CENTRUM) TABLET PO SCH (08:32)
[2018-06-16] MEDS: POLYETHYLENE GLYCOL POWDER 17 GM PACK PO SCH (08:33)
[2018-06-16] MEDS: methylPREDNISolone SOD SUC 40 MG/1 ML VIAL IV SCH ×2 (08:33→21:54)
[2018-06-16] MEDS: LANSOPRAZOLE ODT 30 MG TABLET PO SCH (08:33)
[2018-06-16] MEDS: SERTRALINE 100 MG TABLET PO SCH (08:33)
[2018-06-16] MEDS: CHOLECALCIFEROL 1,000 UNIT TABLET PO SCH (08:33)
[2018-06-16] MEDS: METOPROLOL TARTRATE 25 MG TABLET PO SCH ×2 (08:33→21:53)
[2018-06-16] MEDS: PROPOFOL 1,000 MG/100 ML BOTTLE IV SCH (08:34)
[2018-06-16] MEDS: cycloSPORINE OPH EMUL 1 VIAL BOTH EYES SCH ×2 (08:35→21:54)
[2018-06-16] MEDS: DILTIAZEM 60 MG TABLET PO SCH ×2 (08:35→21:53)
[2018-06-16] MEDS: hydrALAZINE 20 MG/1 ML VIAL IV PRN (09:05)
[2018-06-16 10:01] LABS: Eosinophils % 0.6 % (0.00-10.9); Hematocrit 30.2 VOL% (35.7-47.0); Hemoglobin 9.5 GM/DL (12.0-16.0); Immature Granulocytes % 0.8 %; Immature Granulocytes Absolute 0.05 #; Lymphocytes # 0.7 10*3/uL (1.4-4.0); Mean Corpuscular HGB Conc 31.5 GM/DL (32-36); Mean Corpuscular Volume 85.6 FL (87-102); Mean Platelet Volume 9.9 FL (9.6-12.0); Monocytes % 4.9 % (1.7-12.7); Neutrophils % 83.7 % (38.7-73.9); Platelet Count 179 T/CUMM (130-400); Red Blood Count 3.53 MC/CUMM (3.8-5.5); Red Cell Distribution Width 13.2 % (9.3-17.3); White Blood Count 6.5 T/CUMM (4-12)
[2018-06-16] MEDS: FERRIC GLUCONATE COMPLEX 125 MG in SODIUM CHLORIDE 0.9% 100 ML IV SCH (10:30)
[2018-06-16 10:37] LABS: Calcium 8.7 MG/DL (8.5-10.1); Osmolality,Calculated 278.7 MOS/KG (273-304)
[2018-06-16] MEDS: ENOXAPARIN 40 MG/0.4 ML SYRINGE SUBCUT SCH (15:05)
[2018-06-16] MEDS: MIDAZOLAM 100 MG in SODIUM CHLORIDE 0.9% 80 ML IV PRN (20:01)
[2018-06-16] MEDS: MENTHOL/ZINC OXIDE OINT 71 GM JAR TOP SCH (21:53)
[2018-06-16] MEDS: ROSUVASTATIN 10 MG TABLET PO SCH (21:53)
[2018-06-17] MEDS: ALBUTEROL/IPRATROPIUM 3 ML NEB RESP TX SCH ×4 (00:52→19:20)
[2018-06-17] MEDS: INSULIN LISPRO 100 UNIT/ML SUBCUT SCH ×4 (03:34→17:28)
[2018-06-17 04:10] LABS: ABG Base Excess 9.2 MMOL/L (-2.5-2.5); ABG HCO3 34.3 MMOL/L (20-26); ABG Oxygen Saturation 97.6 % (95-100); ABG PCO2 49.3 MM HG (35-48); ABG PO2 103.4 MM HG (80-95); ABG TCO2 35.8 MMOL/L (23-27); Allen Test Positive; Pt O2 Delivery Device Ventilator
[2018-06-17 05:44] LABS: Basophils % 0.1 % (0.0-0.8); Eosinophils % 0.6 % (0.00-10.9); Hematocrit 30.2 VOL% (35.7-47.0); Hemoglobin 9.5 GM/DL (12.0-16.0); Immature Granulocytes % 1.6 %; Immature Granulocytes Absolute 0.11 #; Lymphocytes # 0.5 10*3/uL (1.4-4.0); Lymphocytes % 7.5 % (21.3-54.2); Mean Corpuscular HGB Conc 31.5 GM/DL (32-36); Mean Corpuscular Volume 85.1 FL (87-102); Monocytes % 3.7 % (1.7-12.7); Neutrophils % 86.5 % (38.7-73.9); Platelet Count 196 T/CUMM (130-400); Red Blood Count 3.55 MC/CUMM (3.8-5.5); Red Cell Distribution Width 13.2 % (9.3-17.3); White Blood Count 6.7 T/CUMM (4-12)
[2018-06-17 06:05] LABS: Calcium 8.8 MG/DL (8.5-10.1)
[2018-06-17] MEDS: DORNASE ALFA 2.5 MG/2.5 ML VIAL RESP TX SCH ×2 (07:15→19:25)
[2018-06-17] MEDS: MAGNESIUM SULF RIDER 2 GM in PREMIX 1 EACH IV PRN (08:41)
[2018-06-17] MEDS: CHOLECALCIFEROL 1,000 UNIT TABLET PO SCH (08:42)
[2018-06-17] MEDS: methylPREDNISolone SOD SUC 40 MG/1 ML VIAL IV SCH ×2 (08:42→21:28)
[2018-06-17] MEDS: LACTULOSE 20 GM/30 ML UDCUP PO SCH (08:42)
[2018-06-17] MEDS: guaiFENesin 200 MG/10 ML UDCUP PO PRN (08:42)
[2018-06-17] MEDS: SERTRALINE 100 MG TABLET PO SCH (08:43)
[2018-06-17] MEDS: METOPROLOL TARTRATE 25 MG TABLET PO SCH ×2 (08:43→21:28)
[2018-06-17] MEDS: DILTIAZEM 60 MG TABLET PO SCH ×2 (08:43→21:27)
[2018-06-17] MEDS: MULTIVITAMIN (CENTRUM) TABLET PO SCH (08:44)
[2018-06-17] MEDS: PROPOFOL 1,000 MG/100 ML BOTTLE IV SCH (08:44)
[2018-06-17] MEDS: MONTELUKAST 10 MG TABLET PO SCH (08:44)
[2018-06-17] MEDS: POLYETHYLENE GLYCOL POWDER 17 GM PACK PO SCH (08:44)
[2018-06-17] MEDS: CALCIUM (CARBONATE)/VITAMIN D 600 MG-400 UNIT TABLET PO SCH (08:44)
[2018-06-17] MEDS: ASPIRIN CHEW 81 MG TABLET PO SCH (08:44)
[2018-06-17] MEDS: LANSOPRAZOLE ODT 30 MG TABLET PO SCH (08:45)
[2018-06-17] MEDS: MENTHOL/ZINC OXIDE OINT 71 GM JAR TOP SCH ×2 (08:45→21:27)
[2018-06-17] MEDS: FERRIC GLUCONATE COMPLEX 125 MG in SODIUM CHLORIDE 0.9% 100 ML IV SCH (08:45)
[2018-06-17] MEDS: cycloSPORINE OPH EMUL 1 VIAL BOTH EYES SCH ×2 (08:45→21:28)
[2018-06-17] MEDS: fentaNYL INJ 2,500 MCG in SODIUM CHLORIDE 0.9% 450 ML IV PRN (10:13)
[2018-06-17] MEDS: ENOXAPARIN 40 MG/0.4 ML SYRINGE SUBCUT SCH (15:43)
[2018-06-17] MEDS: hydrALAZINE 20 MG/1 ML VIAL IV PRN ×2 (16:05→22:00)
[2018-06-17] MEDS: METOCLOPRAMIDE 10 MG/2 ML VIAL IV SCH (18:05)
[2018-06-17] MEDS: ROSUVASTATIN 10 MG TABLET PO SCH (21:28)
[2018-06-18] MEDS: ALBUTEROL/IPRATROPIUM 3 ML NEB RESP TX SCH ×4 (00:23→19:23)
[2018-06-18] MEDS: INSULIN LISPRO 100 UNIT/ML SUBCUT SCH ×4 (00:39→17:24)
[2018-06-18] MEDS: METOCLOPRAMIDE 10 MG/2 ML VIAL IV SCH ×4 (00:39→17:19)
[2018-06-18] MEDS: fentaNYL INJ 2,500 MCG in SODIUM CHLORIDE 0.9% 450 ML IV PRN ×2 (03:07→18:12)
[2018-06-18] MEDS: hydrALAZINE 20 MG/1 ML VIAL IV PRN ×2 (04:19→22:00)
[2018-06-18 05:12] LABS: Basophils % 0.1 % (0.0-0.8); Eosinophils % 0.1 % (0.00-10.9); Hematocrit 29.8 VOL% (35.7-47.0); Hemoglobin 9.6 GM/DL (12.0-16.0); Immature Granulocytes % 1.4 %; Immature Granulocytes Absolute 0.12 #; Lymphocytes # 0.5 10*3/uL (1.4-4.0); Lymphocytes % 6.3 % (21.3-54.2); Mean Corpuscular HGB Conc 32.2 GM/DL (32-36); Mean Corpuscular Volume 84.2 FL (87-102); Mean Platelet Volume 10.4 FL (9.6-12.0); Monocytes % 2.1 % (1.7-12.7); Platelet Count 233 T/CUMM (130-400); Red Blood Count 3.54 MC/CUMM (3.8-5.5); Red Cell Distribution Width 13.1 % (9.3-17.3); White Blood Count 8.4 T/CUMM (4-12)
[2018-06-18 05:16] LABS: ABG Base Excess 6.8 MMOL/L (-2.5-2.5); ABG HCO3 30.6 MMOL/L (20-26); ABG Oxygen Saturation 99.1 % (95-100); ABG PCO2 43.9 MM HG (35-48); ABG PH 7.462 (7.35-7.45); ABG TCO2 28.3 MMOL/L (23-27)
[2018-06-18 05:29] LABS: Calcium 9.3 MG/DL (8.5-10.1); Osmolality,Calculated 277.8 MOS/KG (273-304)
[2018-06-18] MEDS: DORNASE ALFA 2.5 MG/2.5 ML VIAL RESP TX SCH ×2 (07:45→19:23)
[2018-06-18] MEDS: PROPOFOL 1,000 MG/100 ML BOTTLE IV SCH (08:03)
[2018-06-18] MEDS: CHOLECALCIFEROL 1,000 UNIT TABLET PO SCH (08:19)
[2018-06-18] MEDS: MONTELUKAST 10 MG TABLET PO SCH (08:19)
[2018-06-18] MEDS: CALCIUM (CARBONATE)/VITAMIN D 600 MG-400 UNIT TABLET PO SCH (08:19)
[2018-06-18] MEDS: DILTIAZEM 60 MG TABLET PO SCH ×2 (08:20→21:07)
[2018-06-18] MEDS: methylPREDNISolone SOD SUC 40 MG/1 ML VIAL IV SCH ×2 (08:20→21:07)
[2018-06-18] MEDS: ASPIRIN CHEW 81 MG TABLET PO SCH (08:20)
[2018-06-18] MEDS: MULTIVITAMIN (CENTRUM) TABLET PO SCH (08:20)
[2018-06-18] MEDS: LACTULOSE 20 GM/30 ML UDCUP PO SCH (08:20)
[2018-06-18] MEDS: METOPROLOL TARTRATE 25 MG TABLET PO SCH ×2 (08:20→21:07)
[2018-06-18] MEDS: POLYETHYLENE GLYCOL POWDER 17 GM PACK PO SCH (08:20)
[2018-06-18] MEDS: LANSOPRAZOLE ODT 30 MG TABLET PO SCH (08:21)
[2018-06-18] MEDS: FERRIC GLUCONATE COMPLEX 125 MG in SODIUM CHLORIDE 0.9% 100 ML IV SCH (09:13)
[2018-06-18] MEDS: cycloSPORINE OPH EMUL 1 VIAL BOTH EYES SCH ×2 (09:19→21:07)
[2018-06-18] MEDS: MENTHOL/ZINC OXIDE OINT 71 GM JAR TOP SCH ×2 (09:22→21:06)
[2018-06-18] MEDS: ENOXAPARIN 40 MG/0.4 ML SYRINGE SUBCUT SCH (15:29)
[2018-06-18] MEDS: ROSUVASTATIN 10 MG TABLET PO SCH (21:07)
[2018-06-19] MEDS: ALBUTEROL/IPRATROPIUM 3 ML NEB RESP TX SCH ×4 (00:49→19:20)
[2018-06-19] MEDS: METOCLOPRAMIDE 10 MG/2 ML VIAL IV SCH ×3 (00:56→13:39)
[2018-06-19] MEDS: INSULIN LISPRO 100 UNIT/ML SUBCUT SCH ×4 (00:56→17:20)
[2018-06-19] MEDS: MIDAZOLAM 100 MG in SODIUM CHLORIDE 0.9% 80 ML IV PRN (03:27)
[2018-06-19 05:07] LABS: Basophils % 0.1 % (0.0-0.8); Calcium 9.2 MG/DL (8.5-10.1); Hematocrit 30.6 VOL% (35.7-47.0); Hemoglobin 9.8 GM/DL (12.0-16.0); Immature Granulocytes % 0.9 %; Immature Granulocytes Absolute 0.08 #; Lymphocytes # 0.5 10*3/uL (1.4-4.0); Lymphocytes % 5.5 % (21.3-54.2); Mean Platelet Volume 10.8 FL (9.6-12.0); Monocytes % 3.4 % (1.7-12.7); Neutrophils % 90.1 % (38.7-73.9); Osmolality,Calculated 283.5 MOS/KG (273-304); Platelet Count 254 T/CUMM (130-400); Red Cell Distribution Width 13.2 % (9.3-17.3); White Blood Count 8.6 T/CUMM (4-12)
[2018-06-19] MEDS: hydrALAZINE 20 MG/1 ML VIAL IV PRN ×2 (05:37→15:09)
[2018-06-19 05:55] LABS: ABG Base Excess 7.9 MMOL/L (-2.5-2.5); ABG HCO3 31.7 MMOL/L (20-26); ABG Oxygen Saturation 98.1 % (95-100); ABG PCO2 44.1 MM HG (35-48); ABG PH 7.476 (7.35-7.45); ABG TCO2 27.8 MMOL/L (23-27); Allen Test Positive; Pt O2 Delivery Device Ventilator
[2018-06-19] MEDS: DORNASE ALFA 2.5 MG/2.5 ML VIAL RESP TX SCH ×2 (08:09→19:26)
[2018-06-19] MEDS: cycloSPORINE OPH EMUL 1 VIAL BOTH EYES SCH ×2 (09:36→21:23)
[2018-06-19] MEDS: POLYETHYLENE GLYCOL POWDER 17 GM PACK PO SCH (09:36)
[2018-06-19] MEDS: FERRIC GLUCONATE COMPLEX 125 MG in SODIUM CHLORIDE 0.9% 100 ML IV SCH (09:36)
[2018-06-19] MEDS: METOPROLOL TARTRATE 25 MG TABLET PO SCH ×2 (09:36→21:23)
[2018-06-19] MEDS: DILTIAZEM 60 MG TABLET PO SCH ×2 (09:36→21:23)
[2018-06-19] MEDS: LACTULOSE 20 GM/30 ML UDCUP PO SCH (09:36)
[2018-06-19] MEDS: methylPREDNISolone SOD SUC 40 MG/1 ML VIAL IV SCH ×2 (09:36→21:23)
[2018-06-19] MEDS: CALCIUM (CARBONATE)/VITAMIN D 600 MG-400 UNIT TABLET PO SCH (09:37)
[2018-06-19] MEDS: MENTHOL/ZINC OXIDE OINT 71 GM JAR TOP SCH ×2 (09:38→21:23)
[2018-06-19] MEDS: MONTELUKAST 10 MG TABLET PO SCH (09:38)
[2018-06-19] MEDS: LANSOPRAZOLE ODT 30 MG TABLET PO SCH (09:38)
[2018-06-19] MEDS: ASPIRIN CHEW 81 MG TABLET PO SCH (09:38)
[2018-06-19] MEDS: CHOLECALCIFEROL 1,000 UNIT TABLET PO SCH (09:38)
[2018-06-19] MEDS: MULTIVITAMIN (CENTRUM) TABLET PO SCH (09:40)
[2018-06-19] MEDS: PROPOFOL 1,000 MG/100 ML BOTTLE IV SCH (09:40)
[2018-06-19] MEDS: ENOXAPARIN 40 MG/0.4 ML SYRINGE SUBCUT SCH (15:12)
[2018-06-19] MEDS: fentaNYL INJ 2,500 MCG in SODIUM CHLORIDE 0.9% 450 ML IV PRN (21:21)
[2018-06-19] MEDS: ROSUVASTATIN 10 MG TABLET PO SCH (21:23)
[2018-06-20] MEDS: ALBUTEROL/IPRATROPIUM 3 ML NEB RESP TX SCH ×4 (00:24→19:23)
[2018-06-20] MEDS: INSULIN LISPRO 100 UNIT/ML SUBCUT SCH ×4 (00:34→18:00)
[2018-06-20 03:33] LABS: ABG Base Excess 9.8 MMOL/L (-2.5-2.5); ABG HCO3 34.8 MMOL/L (20-26); ABG Oxygen Saturation 96.6 % (95-100); ABG PCO2 49.8 MM HG (35-48); ABG PH 7.462 (7.35-7.45); ABG TCO2 36.3 MMOL/L (23-27); Allen Test Positive; Pt O2 Delivery Device Ventilator
[2018-06-20 05:19] LABS: Basophils % 0.2 % (0.0-0.8); Eosinophils % 0.2 % (0.00-10.9); Hematocrit 31.2 VOL% (35.7-47.0); Hemoglobin 9.8 GM/DL (12.0-16.0); Immature Granulocytes % 1.3 %; Immature Granulocytes Absolute 0.14 #; Lymphocytes # 1.5 10*3/uL (1.4-4.0); Lymphocytes % 13.2 % (21.3-54.2); Mean Corpuscular HGB Conc 31.4 GM/DL (32-36); Mean Corpuscular Volume 86.7 FL (87-102); Mean Platelet Volume 10.6 FL (9.6-12.0); Monocytes % 5.9 % (1.7-12.7); Neutrophils % 79.2 % (38.7-73.9); Platelet Count 267 T/CUMM (130-400); Red Cell Distribution Width 13.3 % (9.3-17.3); White Blood Count 11.2 T/CUMM (4-12)
[2018-06-20 05:59] LABS: Calcium 9.3 MG/DL (8.5-10.1); Osmolality,Calculated 279.5 MOS/KG (273-304)
[2018-06-20] MEDS: DORNASE ALFA 2.5 MG/2.5 ML VIAL RESP TX SCH ×2 (07:34→19:31)
[2018-06-20] MEDS: METOPROLOL TARTRATE 25 MG TABLET PO SCH ×2 (08:24→21:55)
[2018-06-20] MEDS: ASPIRIN CHEW 81 MG TABLET PO SCH (08:25)
[2018-06-20] MEDS: DILTIAZEM 60 MG TABLET PO SCH ×2 (08:25→21:54)
[2018-06-20] MEDS: POLYETHYLENE GLYCOL POWDER 17 GM PACK PO SCH (08:25)
[2018-06-20] MEDS: MONTELUKAST 10 MG TABLET PO SCH (08:25)
[2018-06-20] MEDS: CHOLECALCIFEROL 1,000 UNIT TABLET PO SCH (08:25)
[2018-06-20] MEDS: MULTIVITAMIN (CENTRUM) TABLET PO SCH (08:25)
[2018-06-20] MEDS: cycloSPORINE OPH EMUL 1 VIAL BOTH EYES SCH ×2 (08:26→21:55)
[2018-06-20] MEDS: CALCIUM (CARBONATE)/VITAMIN D 600 MG-400 UNIT TABLET PO SCH (08:26)
[2018-06-20] MEDS: methylPREDNISolone SOD SUC 40 MG/1 ML VIAL IV SCH ×2 (08:26→21:55)
[2018-06-20] MEDS: SERTRALINE 100 MG TABLET PO SCH (08:26)
[2018-06-20] MEDS: LACTULOSE 20 GM/30 ML UDCUP PO SCH (08:27)
[2018-06-20] MEDS: MENTHOL/ZINC OXIDE OINT 71 GM JAR TOP SCH ×2 (08:28→21:54)
[2018-06-20] MEDS: LANSOPRAZOLE ODT 30 MG TABLET PO SCH (08:31)
[2018-06-20] MEDS: FERRIC GLUCONATE COMPLEX 125 MG in SODIUM CHLORIDE 0.9% 100 ML IV SCH (08:49)
[2018-06-20] MEDS: PROPOFOL 1,000 MG/100 ML BOTTLE IV SCH (09:05)
[2018-06-20] MEDS ORDERED: TELMISARTAN 40 MG TABLET PO SCH (09:11)
[2018-06-20] MEDS: MIDAZOLAM 100 MG in SODIUM CHLORIDE 0.9% 80 ML IV PRN (10:03)
[2018-06-20] MEDS: cefTAZidime 1,000 MG in SYRINGE 1 EACH IV SCH ×2 (11:35→17:59)
[2018-06-20] MEDS: fentaNYL INJ 2,500 MCG in SODIUM CHLORIDE 0.9% 450 ML IV PRN (14:11)
[2018-06-20] MEDS: ENOXAPARIN 40 MG/0.4 ML SYRINGE SUBCUT SCH (15:42)
[2018-06-20] MEDS: LISINOPRIL 20 MG TABLET PO SCH (16:40)
[2018-06-20] MEDS ORDERED: MIDAZOLAM 100 MG in SODIUM CHLORIDE 0.9% 80 ML IV PRN (19:30)
[2018-06-20] MEDS: ROSUVASTATIN 10 MG TABLET PO SCH (21:55)
[2018-06-21] MEDS: INSULIN LISPRO 100 UNIT/ML SUBCUT SCH ×4 (00:35→17:49)
[2018-06-21] MEDS: ALBUTEROL/IPRATROPIUM 3 ML NEB RESP TX SCH ×4 (00:50→19:35)
[2018-06-21] MEDS: cefTAZidime 1,000 MG in SYRINGE 1 EACH IV SCH ×2 (02:45→10:45)
[2018-06-21 03:37] LABS: ABG Base Excess 10.1 MMOL/L (-2.5-2.5); ABG HCO3 33.9 MMOL/L (20-26); ABG Oxygen Saturation 98.4 % (95-100); ABG PCO2 54.8 MM HG (35-48); ABG PH 7.431 (7.35-7.45); ABG TCO2 32.4 MMOL/L (23-27); Allen Test Positive; Pt O2 Delivery Device Ventilator
[2018-06-21 05:03] LABS: Basophils % 0.2 % (0.0-0.8); Hematocrit 28.3 VOL% (35.7-47.0); Hemoglobin 8.9 GM/DL (12.0-16.0); Immature Granulocytes % 0.7 %; Immature Granulocytes Absolute 0.09 #; Lymphocytes # 0.7 10*3/uL (1.4-4.0); Lymphocytes % 5.8 % (21.3-54.2); Mean Corpuscular HGB Conc 31.4 GM/DL (32-36); Mean Corpuscular Volume 85.8 FL (87-102); Mean Platelet Volume 10.3 FL (9.6-12.0); Monocytes % 2.9 % (1.7-12.7); Neutrophils % 90.4 % (38.7-73.9); Platelet Count 243 T/CUMM (130-400); Red Cell Distribution Width 13.2 % (9.3-17.3); White Blood Count 12.2 T/CUMM (4-12)
[2018-06-21 05:30] LABS: Calcium 8.9 MG/DL (8.5-10.1); Osmolality,Calculated 281.7 MOS/KG (273-304)
[2018-06-21] MEDS: fentaNYL INJ 2,500 MCG in SODIUM CHLORIDE 0.9% 450 ML IV PRN (06:40)
[2018-06-21] MEDS: DORNASE ALFA 2.5 MG/2.5 ML VIAL RESP TX SCH ×2 (07:37→19:40)
[2018-06-21] MEDS ORDERED: FUROSEMIDE 40 MG/4 ML VIAL IV ONE (09:19)
[2018-06-21] MEDS: PROPOFOL 1,000 MG/100 ML BOTTLE IV SCH (10:26)
[2018-06-21] MEDS: LACTULOSE 20 GM/30 ML UDCUP PO SCH (10:40)
[2018-06-21] MEDS: MONTELUKAST 10 MG TABLET PO SCH (10:40)
[2018-06-21] MEDS: METOPROLOL TARTRATE 25 MG TABLET PO SCH ×2 (10:40→20:54)
[2018-06-21] MEDS: LISINOPRIL 20 MG TABLET PO SCH (10:40)
[2018-06-21] MEDS: ASPIRIN CHEW 81 MG TABLET PO SCH (10:40)
[2018-06-21] MEDS: MULTIVITAMIN (CENTRUM) TABLET PO SCH (10:40)
[2018-06-21] MEDS: DILTIAZEM 60 MG TABLET PO SCH ×2 (10:40→20:53)
[2018-06-21] MEDS: CALCIUM (CARBONATE)/VITAMIN D 600 MG-400 UNIT TABLET PO SCH (10:41)
[2018-06-21] MEDS: MENTHOL/ZINC OXIDE OINT 71 GM JAR TOP SCH ×2 (10:42→20:53)
[2018-06-21] MEDS: SERTRALINE 100 MG TABLET PO SCH (10:43)
[2018-06-21] MEDS: POLYETHYLENE GLYCOL POWDER 17 GM PACK PO SCH (10:43)
[2018-06-21] MEDS: cycloSPORINE OPH EMUL 1 VIAL BOTH EYES SCH ×2 (10:44→20:54)
[2018-06-21] MEDS: methylPREDNISolone SOD SUC 40 MG/1 ML VIAL IV SCH ×2 (10:44→20:54)
[2018-06-21] MEDS: LANSOPRAZOLE ODT 30 MG TABLET PO SCH (10:45)
[2018-06-21] MEDS: CHOLECALCIFEROL 1,000 UNIT TABLET PO SCH (10:45)
[2018-06-21] MEDS: FERRIC GLUCONATE COMPLEX 125 MG in SODIUM CHLORIDE 0.9% 100 ML IV SCH (11:08)
[2018-06-21 11:11] LABS: ABG Base Excess 9.8 MMOL/L (-2.5-2.5); ABG HCO3 33.6 MMOL/L (20-26); ABG Oxygen Saturation 99.4 % (95-100); ABG PCO2 58.5 MM HG (35-48); ABG PH 7.401 (7.35-7.45); ABG TCO2 33.7 MMOL/L (23-27); Allen Test Positive; Pt O2 Delivery Device Ventilator
[2018-06-21] MEDS: MEROPENEM 1,000 MG in SODIUM CHLORIDE 0.9% 100 ML IV SCH ×2 (14:36→20:50)
[2018-06-21] MEDS: hydrALAZINE 20 MG/1 ML VIAL IV PRN ×2 (14:51→22:00)
[2018-06-21 15:25] LABS: ABG Base Excess 10.5 MMOL/L (-2.5-2.5); ABG HCO3 34.2 MMOL/L (20-26); ABG Oxygen Saturation 98.3 % (95-100); ABG PCO2 49.2 MM HG (35-48); ABG PH 7.469 (7.35-7.45); ABG PO2 96.3 MM HG (80-95); ABG TCO2 32.5 MMOL/L (23-27); Allen Test Positive; Pt O2 Delivery Device Ventilator
[2018-06-21] MEDS: ENOXAPARIN 40 MG/0.4 ML SYRINGE SUBCUT SCH (16:02)
[2018-06-21] MEDS: ROSUVASTATIN 10 MG TABLET PO SCH (20:54)
[2018-06-22] MEDS: INSULIN LISPRO 100 UNIT/ML SUBCUT SCH ×4 (01:05→18:23)
[2018-06-22] MEDS: ALBUTEROL/IPRATROPIUM 3 ML NEB RESP TX SCH ×4 (01:26→19:12)
[2018-06-22] MEDS: fentaNYL INJ 2,500 MCG in SODIUM CHLORIDE 0.9% 450 ML IV PRN ×2 (01:40→14:52)
[2018-06-22 03:46] LABS: ABG Base Excess 11.2 MMOL/L (-2.5-2.5); ABG Oxygen Saturation 99.3 % (95-100); ABG PCO2 49.8 MM HG (35-48); ABG PH 7.476 (7.35-7.45); ABG TCO2 32.1 MMOL/L (23-27); Allen Test Positive; Pt O2 Delivery Device Ventilator
[2018-06-22 05:19] LABS: Calcium 8.8 MG/DL (8.5-10.1); Osmolality,Calculated 280.7 MOS/KG (273-304)
[2018-06-22 05:25] LABS: Prealbumin 11.1 MG/DL (20-40)
[2018-06-22] MEDS: MEROPENEM 1,000 MG in SODIUM CHLORIDE 0.9% 100 ML IV SCH ×3 (05:40→20:30)
[2018-06-22] MEDS ORDERED: TERAZOSIN 5 MG CAPSULE PO ONE (07:10)
[2018-06-22] MEDS: DORNASE ALFA 2.5 MG/2.5 ML VIAL RESP TX SCH ×2 (07:45→19:12)
[2018-06-22] MEDS: methylPREDNISolone SOD SUC 40 MG/1 ML VIAL IV SCH ×2 (09:54→20:30)
[2018-06-22] MEDS: LISINOPRIL 20 MG TABLET PO SCH (09:55)
[2018-06-22] MEDS: DILTIAZEM 60 MG TABLET PO SCH ×2 (09:55→20:29)
[2018-06-22] MEDS: POLYETHYLENE GLYCOL POWDER 17 GM PACK PO SCH (09:55)
[2018-06-22] MEDS: FERRIC GLUCONATE COMPLEX 125 MG in SODIUM CHLORIDE 0.9% 100 ML IV SCH (09:56)
[2018-06-22] MEDS: LANSOPRAZOLE ODT 30 MG TABLET PO SCH (09:56)
[2018-06-22] MEDS: SERTRALINE 100 MG TABLET PO SCH (09:56)
[2018-06-22] MEDS: CHOLECALCIFEROL 1,000 UNIT TABLET PO SCH (09:56)
[2018-06-22] MEDS: ASPIRIN CHEW 81 MG TABLET PO SCH (09:56)
[2018-06-22] MEDS: CALCIUM (CARBONATE)/VITAMIN D 600 MG-400 UNIT TABLET PO SCH (09:57)
[2018-06-22] MEDS: METOPROLOL TARTRATE 25 MG TABLET PO SCH ×2 (09:57→20:30)
[2018-06-22] MEDS: MENTHOL/ZINC OXIDE OINT 71 GM JAR TOP SCH ×2 (09:57→20:36)
[2018-06-22] MEDS: MULTIVITAMIN (CENTRUM) TABLET PO SCH (09:57)
[2018-06-22] MEDS: MONTELUKAST 10 MG TABLET PO SCH (09:57)
[2018-06-22] MEDS: cycloSPORINE OPH EMUL 1 VIAL BOTH EYES SCH ×2 (09:58→20:30)
[2018-06-22] MEDS: PROPOFOL 1,000 MG/100 ML BOTTLE IV SCH (10:03)
[2018-06-22] MEDS: LACTULOSE 20 GM/30 ML UDCUP PO SCH (10:04)
[2018-06-22] MEDS ORDERED: FUROSEMIDE 40 MG/4 ML VIAL IV ONE (10:51)
[2018-06-22 10:54] LABS: ABG Base Excess 11.4 MMOL/L (-2.5-2.5); ABG HCO3 35.2 MMOL/L (20-26); ABG PCO2 62.8 MM HG (35-48); ABG PH 7.394 (7.35-7.45); ABG TCO2 35.7 MMOL/L (23-27); Allen Test Positive; Pt O2 Delivery Device Ventilator
[2018-06-22 15:16] LABS: ABG Base Excess 11.8 MMOL/L (-2.5-2.5); ABG HCO3 35.5 MMOL/L (20-26); ABG Oxygen Saturation 94.1 % (95-100); ABG PCO2 61.9 MM HG (35-48); ABG PH 7.407 (7.35-7.45); ABG PO2 73.6 MM HG (80-95); ABG TCO2 35.2 MMOL/L (23-27); Allen Test Positive; Pt O2 Delivery Device Ventilator
[2018-06-22] MEDS: ENOXAPARIN 40 MG/0.4 ML SYRINGE SUBCUT SCH (15:50)
[2018-06-22] MEDS: ROSUVASTATIN 10 MG TABLET PO SCH (20:29)
[2018-06-22] MEDS: TERAZOSIN 5 MG CAPSULE PO SCH (20:30)
[2018-06-23] MEDS: ALBUTEROL/IPRATROPIUM 3 ML NEB RESP TX SCH ×4 (00:44→20:01)
[2018-06-23] MEDS: INSULIN LISPRO 100 UNIT/ML SUBCUT SCH ×4 (00:59→17:35)
[2018-06-23 03:42] LABS: Hematocrit 25.1 VOL% (35.7-47.0); Immature Granulocytes % 0.9 %; Immature Granulocytes Absolute 0.06 #; Lymphocytes # 0.4 10*3/uL (1.4-4.0); Lymphocytes % 5.2 % (21.3-54.2); Mean Corpuscular HGB Conc 31.9 GM/DL (32-36); Mean Corpuscular Volume 85.4 FL (87-102); Monocytes % 3.3 % (1.7-12.7); Neutrophils % 90.6 % (38.7-73.9); Platelet Count 177 T/CUMM (130-400); Red Blood Count 2.94 MC/CUMM (3.8-5.5)
[2018-06-23 04:01] LABS: Calcium 9.1 MG/DL (8.5-10.1); Osmolality,Calculated 281.5 MOS/KG (273-304)
[2018-06-23 04:17] LABS: ABG Base Excess 13.2 MMOL/L (-2.5-2.5); ABG Oxygen Saturation 98.2 % (95-100); ABG PCO2 41.8 MM HG (35-48); ABG PH 7.555 (7.35-7.45); ABG PO2 90.9 MM HG (80-95); ABG TCO2 34.3 MMOL/L (23-27); Allen Test Positive; Pt O2 Delivery Device Ventilator
[2018-06-23 04:34] LABS: Band Neutrophils 2 % (0-10); Lymphocytes 7 % (20-55); Segmented Neutrophils 90 % (50-85); Total Cells Counted 100
[2018-06-23 04:42] LABS: Hypochromasia 1+; Platelet Estimate Normal
[2018-06-23 04:43] LABS: Ovalocytes 1+; Tear Drop Cells Few
[2018-06-23] MEDS: MEROPENEM 1,000 MG in SODIUM CHLORIDE 0.9% 100 ML IV SCH ×3 (05:24→20:52)
[2018-06-23] MEDS: DORNASE ALFA 2.5 MG/2.5 ML VIAL RESP TX SCH ×2 (07:44→20:01)
[2018-06-23] MEDS ORDERED: SODIUM CHLORIDE 0.9% 1,000 ML IV PRN (09:07)
[2018-06-23] MEDS: CHOLECALCIFEROL 1,000 UNIT TABLET PO SCH (09:27)
[2018-06-23] MEDS: DILTIAZEM 60 MG TABLET PO SCH ×2 (09:27→20:51)
[2018-06-23] MEDS: LACTULOSE 20 GM/30 ML UDCUP PO SCH (09:27)
[2018-06-23] MEDS: POLYETHYLENE GLYCOL POWDER 17 GM PACK PO SCH (09:27)
[2018-06-23] MEDS: CALCIUM (CARBONATE)/VITAMIN D 600 MG-400 UNIT TABLET PO SCH (09:27)
[2018-06-23] MEDS: ASPIRIN CHEW 81 MG TABLET PO SCH (09:27)
[2018-06-23] MEDS: LISINOPRIL 20 MG TABLET PO SCH (09:28)
[2018-06-23] MEDS: MULTIVITAMIN (CENTRUM) TABLET PO SCH (09:28)
[2018-06-23] MEDS: METOPROLOL TARTRATE 25 MG TABLET PO SCH ×2 (09:28→20:52)
[2018-06-23] MEDS: LANSOPRAZOLE ODT 30 MG TABLET PO SCH (09:28)
[2018-06-23] MEDS: MONTELUKAST 10 MG TABLET PO SCH (09:28)
[2018-06-23] MEDS: PROPOFOL 1,000 MG/100 ML BOTTLE IV SCH (09:29)
[2018-06-23] MEDS: FERRIC GLUCONATE COMPLEX 125 MG in SODIUM CHLORIDE 0.9% 100 ML IV SCH (09:29)
[2018-06-23] MEDS: cycloSPORINE OPH EMUL 1 VIAL BOTH EYES SCH ×2 (09:29→21:27)
[2018-06-23] MEDS: SERTRALINE 100 MG TABLET PO SCH (09:29)
[2018-06-23] MEDS: methylPREDNISolone SOD SUC 40 MG/1 ML VIAL IV SCH ×2 (09:29→20:52)
[2018-06-23] MEDS: MENTHOL/ZINC OXIDE OINT 71 GM JAR TOP SCH ×2 (09:29→20:52)
[2018-06-23] MEDS: MIDAZOLAM 100 MG in SODIUM CHLORIDE 0.9% 80 ML IV PRN (09:42)
[2018-06-23] MEDS: LEVOFLOXACIN INJ 500 MG in PREMIX 1 EACH IV SCH (17:35)
[2018-06-23] MEDS: ENOXAPARIN 40 MG/0.4 ML SYRINGE SUBCUT SCH (17:35)
[2018-06-23] MEDS: fentaNYL INJ 2,500 MCG in SODIUM CHLORIDE 0.9% 450 ML IV PRN (19:29)
[2018-06-23] MEDS: TERAZOSIN 5 MG CAPSULE PO SCH (20:51)
[2018-06-23] MEDS: ROSUVASTATIN 10 MG TABLET PO SCH (20:52)
[2018-06-24] MEDS: INSULIN LISPRO 100 UNIT/ML SUBCUT SCH ×4 (00:53→18:02)
[2018-06-24] MEDS: ALBUTEROL/IPRATROPIUM 3 ML NEB RESP TX SCH ×4 (01:15→19:51)
[2018-06-24 04:05] LABS: Basophils % 0.1 % (0.0-0.8); Hemoglobin 10.9 GM/DL (12.0-16.0); Immature Granulocytes % 1.7 %; Immature Granulocytes Absolute 0.12 #; Lymphocytes # 0.4 10*3/uL (1.4-4.0); Lymphocytes % 6.3 % (21.3-54.2); Mean Corpuscular HGB Conc 32.1 GM/DL (32-36); Mean Corpuscular Volume 85.4 FL (87-102); Mean Platelet Volume 10.9 FL (9.6-12.0); Monocytes % 3.4 % (1.7-12.7); Neutrophils % 88.5 % (38.7-73.9); Platelet Count 184 T/CUMM (130-400); Red Blood Count 3.98 MC/CUMM (3.8-5.5); Red Cell Distribution Width 13.4 % (9.3-17.3)
[2018-06-24 04:13] LABS: ABG Base Excess 12.2 MMOL/L (-2.5-2.5); ABG HCO3 36.1 MMOL/L (20-26); ABG Oxygen Saturation 97.3 % (95-100); ABG PCO2 43.9 MM HG (35-48); ABG PH 7.533 (7.35-7.45); ABG PO2 99.3 MM HG (80-95); ABG TCO2 37.5 MMOL/L (23-27); Allen Test Positive; Pt O2 Delivery Device Ventilator
[2018-06-24 04:29] LABS: Calcium 9.3 MG/DL (8.5-10.1); Osmolality,Calculated 279.7 MOS/KG (273-304)
[2018-06-24] MEDS: hydrALAZINE 20 MG/1 ML VIAL IV PRN ×2 (04:38→22:32)
[2018-06-24] MEDS: MEROPENEM 1,000 MG in SODIUM CHLORIDE 0.9% 100 ML IV SCH ×3 (04:39→20:14)
[2018-06-24] MEDS: fentaNYL INJ 2,500 MCG in SODIUM CHLORIDE 0.9% 450 ML IV PRN (06:00)
[2018-06-24] MEDS: DORNASE ALFA 2.5 MG/2.5 ML VIAL RESP TX SCH ×2 (07:16→19:51)
[2018-06-24] MEDS: LACTULOSE 20 GM/30 ML UDCUP PO SCH (09:26)
[2018-06-24] MEDS: LISINOPRIL 20 MG TABLET PO SCH (09:30)
[2018-06-24] MEDS: CHOLECALCIFEROL 1,000 UNIT TABLET PO SCH (09:30)
[2018-06-24] MEDS: MONTELUKAST 10 MG TABLET PO SCH (09:30)
[2018-06-24] MEDS: methylPREDNISolone SOD SUC 40 MG/1 ML VIAL IV SCH ×2 (09:30→20:14)
[2018-06-24] MEDS: CALCIUM (CARBONATE)/VITAMIN D 600 MG-400 UNIT TABLET PO SCH (09:30)
[2018-06-24] MEDS: POLYETHYLENE GLYCOL POWDER 17 GM PACK PO SCH (09:30)
[2018-06-24] MEDS: MULTIVITAMIN (CENTRUM) TABLET PO SCH (09:30)
[2018-06-24] MEDS: DILTIAZEM 60 MG TABLET PO SCH ×2 (09:30→20:14)
[2018-06-24] MEDS: SERTRALINE 100 MG TABLET PO SCH (09:30)
[2018-06-24] MEDS: ASPIRIN CHEW 81 MG TABLET PO SCH (09:33)
[2018-06-24] MEDS: FERRIC GLUCONATE COMPLEX 125 MG in SODIUM CHLORIDE 0.9% 100 ML IV SCH (09:34)
[2018-06-24] MEDS: LANSOPRAZOLE ODT 30 MG TABLET PO SCH (09:34)
[2018-06-24] MEDS: MENTHOL/ZINC OXIDE OINT 71 GM JAR TOP SCH ×2 (09:34→20:18)
[2018-06-24] MEDS: METOPROLOL TARTRATE 25 MG TABLET PO SCH ×2 (09:34→20:14)
[2018-06-24] MEDS: cycloSPORINE OPH EMUL 1 VIAL BOTH EYES SCH ×2 (09:34→20:13)
[2018-06-24] MEDS: PROPOFOL 1,000 MG/100 ML BOTTLE IV SCH (10:18)
[2018-06-24] MEDS: LEVOFLOXACIN INJ 500 MG in PREMIX 1 EACH IV SCH (16:05)
[2018-06-24] MEDS: ENOXAPARIN 40 MG/0.4 ML SYRINGE SUBCUT SCH (16:05)
[2018-06-24] MEDS: ROSUVASTATIN 10 MG TABLET PO SCH (20:13)
[2018-06-24] MEDS: TERAZOSIN 5 MG CAPSULE PO SCH (20:14)
[2018-06-25] MEDS: INSULIN LISPRO 100 UNIT/ML SUBCUT SCH ×4 (00:54→18:04)
[2018-06-25] MEDS: ALBUTEROL/IPRATROPIUM 3 ML NEB RESP TX SCH ×4 (01:29→19:57)
[2018-06-25] MEDS: fentaNYL INJ 2,500 MCG in SODIUM CHLORIDE 0.9% 450 ML IV PRN ×2 (03:32→21:45)
[2018-06-25 03:35] LABS: Allen Test Positive; Pt O2 Delivery Device Ventilator
[2018-06-25 03:36] LABS: ABG Base Excess 10.8 MMOL/L (-2.5-2.5); ABG HCO3 34.6 MMOL/L (20-26); ABG Oxygen Saturation 98.6 % (95-100); ABG PCO2 55.9 MM HG (35-48); ABG PH 7.432 (7.35-7.45); ABG TCO2 33.2 MMOL/L (23-27)
[2018-06-25 04:47] LABS: Basophils % 0.2 % (0.0-0.8); Hematocrit 34.2 VOL% (35.7-47.0); Hemoglobin 10.8 GM/DL (12.0-16.0); Immature Granulocytes % 1.4 %; Immature Granulocytes Absolute 0.09 #; Lymphocytes # 0.3 10*3/uL (1.4-4.0); Mean Corpuscular HGB Conc 31.6 GM/DL (32-36); Mean Corpuscular Volume 87.7 FL (87-102); Monocytes % 3.6 % (1.7-12.7); Neutrophils % 89.8 % (38.7-73.9); Platelet Count 159 T/CUMM (130-400); Red Cell Distribution Width 13.5 % (9.3-17.3); White Blood Count 6.4 T/CUMM (4-12)
[2018-06-25] MEDS: hydrALAZINE 20 MG/1 ML VIAL IV PRN ×2 (04:47→16:14)
[2018-06-25] MEDS: MEROPENEM 1,000 MG in SODIUM CHLORIDE 0.9% 100 ML IV SCH ×3 (04:47→20:55)
[2018-06-25 05:26] LABS: Albumin 2.2 G/DL (3.4-5.0); Bilirubin,Total 0.5 MG/DL (0.2-1.0); Calcium 8.9 MG/DL (8.5-10.1); Osmolality,Calculated 290.3 MOS/KG (273-304); Total Protein 5.6 G/DL (6.4-8.3)
[2018-06-25] MEDS: DORNASE ALFA 2.5 MG/2.5 ML VIAL RESP TX SCH ×2 (07:19→19:57)
[2018-06-25] MEDS: LACTULOSE 20 GM/30 ML UDCUP PO SCH (08:23)
[2018-06-25] MEDS: methylPREDNISolone SOD SUC 40 MG/1 ML VIAL IV SCH ×2 (08:23→21:05)
[2018-06-25] MEDS: POLYETHYLENE GLYCOL POWDER 17 GM PACK PO SCH (08:24)
[2018-06-25] MEDS: CHOLECALCIFEROL 1,000 UNIT TABLET PO SCH (08:24)
[2018-06-25] MEDS: SERTRALINE 100 MG TABLET PO SCH (08:24)
[2018-06-25] MEDS: MONTELUKAST 10 MG TABLET PO SCH (08:24)
[2018-06-25] MEDS: ASPIRIN CHEW 81 MG TABLET PO SCH (08:24)
[2018-06-25] MEDS: METOPROLOL TARTRATE 25 MG TABLET PO SCH ×2 (08:24→21:05)
[2018-06-25] MEDS: MULTIVITAMIN (CENTRUM) TABLET PO SCH (08:24)
[2018-06-25] MEDS: DILTIAZEM 60 MG TABLET PO SCH ×2 (08:24→21:05)
[2018-06-25] MEDS: LANSOPRAZOLE ODT 30 MG TABLET PO SCH (08:24)
[2018-06-25] MEDS: LISINOPRIL 20 MG TABLET PO SCH (08:24)
[2018-06-25] MEDS: CALCIUM (CARBONATE)/VITAMIN D 600 MG-400 UNIT TABLET PO SCH (08:24)
[2018-06-25] MEDS: MENTHOL/ZINC OXIDE OINT 71 GM JAR TOP SCH ×2 (09:00→21:06)
[2018-06-25] MEDS: PROPOFOL 1,000 MG/100 ML BOTTLE IV SCH (09:01)
[2018-06-25] MEDS: cycloSPORINE OPH EMUL 1 VIAL BOTH EYES SCH ×2 (09:01→21:06)
[2018-06-25] MEDS: MIDAZOLAM 100 MG in SODIUM CHLORIDE 0.9% 80 ML IV PRN (13:08)
[2018-06-25] MEDS: LEVOFLOXACIN INJ 500 MG in PREMIX 1 EACH IV SCH (16:08)
[2018-06-25] MEDS: ENOXAPARIN 40 MG/0.4 ML SYRINGE SUBCUT SCH (16:08)
[2018-06-25] MEDS: TERAZOSIN 5 MG CAPSULE PO SCH (21:05)
[2018-06-25] MEDS: ROSUVASTATIN 10 MG TABLET PO SCH (21:05)
[2018-06-26] MEDS: ALBUTEROL/IPRATROPIUM 3 ML NEB RESP TX SCH ×4 (00:28→19:42)
[2018-06-26 04:33] LABS: ABG Base Excess 10.8 MMOL/L (-2.5-2.5); ABG HCO3 34.5 MMOL/L (20-26); ABG Oxygen Saturation 98.3 % (95-100); ABG PCO2 52.6 MM HG (35-48); ABG PH 7.451 (7.35-7.45); ABG TCO2 32.6 MMOL/L (23-27); Allen Test Positive; Pt O2 Delivery Device Ventilator
[2018-06-26 04:40] LABS: Basophils % 0.2 % (0.0-0.8); Hematocrit 33.8 VOL% (35.7-47.0); Hemoglobin 10.6 GM/DL (12.0-16.0); Immature Granulocytes % 1.3 %; Immature Granulocytes Absolute 0.07 #; Lymphocytes # 0.4 10*3/uL (1.4-4.0); Lymphocytes % 8.2 % (21.3-54.2); Mean Corpuscular HGB Conc 31.4 GM/DL (32-36); Mean Corpuscular Volume 88.7 FL (87-102); Mean Platelet Volume 10.6 FL (9.6-12.0); Monocytes % 2.8 % (1.7-12.7); Neutrophils % 87.5 % (38.7-73.9); Platelet Count 134 T/CUMM (130-400); Red Blood Count 3.81 MC/CUMM (3.8-5.5); Red Cell Distribution Width 13.6 % (9.3-17.3); White Blood Count 5.4 T/CUMM (4-12)
[2018-06-26] MEDS: INSULIN LISPRO 100 UNIT/ML SUBCUT SCH ×4 (04:42→18:40)
[2018-06-26 04:55] LABS: Calcium 8.8 MG/DL (8.5-10.1)
[2018-06-26] MEDS: MEROPENEM 1,000 MG in SODIUM CHLORIDE 0.9% 100 ML IV SCH ×3 (04:58→21:12)
[2018-06-26 05:14] LABS: Prealbumin 15.6 MG/DL (20-40)
[2018-06-26] MEDS: DORNASE ALFA 2.5 MG/2.5 ML VIAL RESP TX SCH ×2 (08:02→19:49)
[2018-06-26] MEDS: LISINOPRIL 20 MG TABLET PO SCH (09:08)
[2018-06-26] MEDS: DILTIAZEM 60 MG TABLET PO SCH ×2 (09:09→21:15)
[2018-06-26] MEDS: POLYETHYLENE GLYCOL POWDER 17 GM PACK PO SCH (09:09)
[2018-06-26] MEDS: MONTELUKAST 10 MG TABLET PO SCH (09:09)
[2018-06-26] MEDS: METOPROLOL TARTRATE 25 MG TABLET PO SCH ×2 (09:09→20:50)
[2018-06-26] MEDS: CHOLECALCIFEROL 1,000 UNIT TABLET PO SCH (09:09)
[2018-06-26] MEDS: CALCIUM (CARBONATE)/VITAMIN D 600 MG-400 UNIT TABLET PO SCH (09:09)
[2018-06-26] MEDS: MULTIVITAMIN (CENTRUM) TABLET PO SCH (09:09)
[2018-06-26] MEDS: methylPREDNISolone SOD SUC 40 MG/1 ML VIAL IV SCH ×2 (09:10→20:48)
[2018-06-26] MEDS: SERTRALINE 100 MG TABLET PO SCH (09:10)
[2018-06-26] MEDS: cycloSPORINE OPH EMUL 1 VIAL BOTH EYES SCH ×2 (09:10→22:25)
[2018-06-26] MEDS: LANSOPRAZOLE ODT 30 MG TABLET PO SCH (09:10)
[2018-06-26] MEDS: MENTHOL/ZINC OXIDE OINT 71 GM JAR TOP SCH ×2 (09:10→22:19)
[2018-06-26] MEDS: ASPIRIN CHEW 81 MG TABLET PO SCH (09:10)
[2018-06-26] MEDS: LACTULOSE 20 GM/30 ML UDCUP PO SCH (09:11)
[2018-06-26] MEDS: PROPOFOL 1,000 MG/100 ML BOTTLE IV SCH (10:32)
[2018-06-26 11:08] LABS: ABG Base Excess 11.1 MMOL/L (-2.5-2.5); ABG HCO3 34.9 MMOL/L (20-26); ABG Oxygen Saturation 99.2 % (95-100); ABG PCO2 54.4 MM HG (35-48); ABG PH 7.443 (7.35-7.45); ABG TCO2 33.5 MMOL/L (23-27); Allen Test Positive; Pt O2 Delivery Device Ventilator
[2018-06-26] MEDS: ENOXAPARIN 40 MG/0.4 ML SYRINGE SUBCUT SCH (15:50)
[2018-06-26] MEDS: LEVOFLOXACIN INJ 500 MG in PREMIX 1 EACH IV SCH (15:50)
[2018-06-26 16:04] LABS: ABG Base Excess 11.1 MMOL/L (-2.5-2.5); ABG HCO3 38.3 MMOL/L (20-26); ABG Oxygen Saturation 97.7 % (95-100); ABG PCO2 66.2 MM HG (35-48); ABG PO2 115.9 MM HG (80-95); ABG TCO2 40.3 MMOL/L (23-27); Allen Test Positive; Pt O2 Delivery Device Ventilator
[2018-06-26] MEDS: fentaNYL INJ 2,500 MCG in SODIUM CHLORIDE 0.9% 450 ML IV PRN (17:08)
[2018-06-26] MEDS: ROSUVASTATIN 10 MG TABLET PO SCH (20:48)
[2018-06-26] MEDS: TERAZOSIN 5 MG CAPSULE PO SCH (20:49)
[2018-06-26] MEDS: POTASSIUM PHOS/SOD PHOS POWDER 250 MG PACK PO SCH (20:50)
[2018-06-27] MEDS: INSULIN LISPRO 100 UNIT/ML SUBCUT SCH ×4 (00:21→18:18)
[2018-06-27] MEDS: ALBUTEROL/IPRATROPIUM 3 ML NEB RESP TX SCH ×4 (01:58→20:14)
[2018-06-27] MEDS: MEROPENEM 1,000 MG in SODIUM CHLORIDE 0.9% 100 ML IV SCH ×3 (05:08→20:58)
[2018-06-27] MEDS: fentaNYL INJ 2,500 MCG in SODIUM CHLORIDE 0.9% 450 ML IV PRN (06:45)
[2018-06-27] MEDS: DORNASE ALFA 2.5 MG/2.5 ML VIAL RESP TX SCH ×2 (06:55→20:14)
[2018-06-27 07:27] LABS: ABG Base Excess 10.4 MMOL/L (-2.5-2.5); ABG HCO3 34.2 MMOL/L (20-26); ABG Oxygen Saturation 99.1 % (95-100); ABG PCO2 60.1 MM HG (35-48); ABG PH 7.402 (7.35-7.45); ABG TCO2 33.8 MMOL/L (23-27); Allen Test Positive; Pt O2 Delivery Device Ventilator
[2018-06-27] MEDS: cycloSPORINE OPH EMUL 1 VIAL BOTH EYES SCH ×2 (09:27→21:00)
[2018-06-27] MEDS: METOPROLOL TARTRATE 25 MG TABLET PO SCH ×2 (09:27→20:59)
[2018-06-27] MEDS: methylPREDNISolone SOD SUC 40 MG/1 ML VIAL IV SCH ×2 (09:27→21:01)
[2018-06-27] MEDS: LACTULOSE 20 GM/30 ML UDCUP PO SCH (09:27)
[2018-06-27] MEDS: MULTIVITAMIN (CENTRUM) TABLET PO SCH (09:27)
[2018-06-27] MEDS: POLYETHYLENE GLYCOL POWDER 17 GM PACK PO SCH (09:27)
[2018-06-27] MEDS: DILTIAZEM 60 MG TABLET PO SCH ×2 (09:28→20:59)
[2018-06-27] MEDS: SERTRALINE 100 MG TABLET PO SCH (09:29)
[2018-06-27] MEDS: CHOLECALCIFEROL 1,000 UNIT TABLET PO SCH (09:29)
[2018-06-27] MEDS: ASPIRIN CHEW 81 MG TABLET PO SCH (09:29)
[2018-06-27] MEDS: CALCIUM (CARBONATE)/VITAMIN D 600 MG-400 UNIT TABLET PO SCH (09:29)
[2018-06-27] MEDS: LANSOPRAZOLE ODT 30 MG TABLET PO SCH (09:29)
[2018-06-27] MEDS: MONTELUKAST 10 MG TABLET PO SCH (09:29)
[2018-06-27] MEDS: MENTHOL/ZINC OXIDE OINT 71 GM JAR TOP SCH ×2 (09:30→21:00)
[2018-06-27] MEDS: LISINOPRIL 20 MG TABLET PO SCH (09:33)
[2018-06-27] MEDS: PROPOFOL 1,000 MG/100 ML BOTTLE IV SCH (09:37)
[2018-06-27] MEDS: POTASSIUM PHOS/SOD PHOS POWDER 250 MG PACK PO SCH ×2 (12:06→15:16)
[2018-06-27] MEDS: LEVOFLOXACIN INJ 500 MG in PREMIX 1 EACH IV SCH (15:16)
[2018-06-27] MEDS: ENOXAPARIN 40 MG/0.4 ML SYRINGE SUBCUT SCH (15:17)
[2018-06-27] MEDS: hydrALAZINE 20 MG/1 ML VIAL IV PRN ×2 (15:58→18:16)
[2018-06-27] MEDS: TERAZOSIN 5 MG CAPSULE PO SCH (20:59)
[2018-06-27] MEDS: ROSUVASTATIN 10 MG TABLET PO SCH (21:00)
[2018-06-28] MEDS: ALBUTEROL/IPRATROPIUM 3 ML NEB RESP TX SCH ×4 (00:15→19:34)
[2018-06-28] MEDS: hydrALAZINE 20 MG/1 ML VIAL IV PRN ×3 (01:25→18:37)
[2018-06-28] MEDS: INSULIN LISPRO 100 UNIT/ML SUBCUT SCH ×4 (01:25→18:38)
[2018-06-28] MEDS: MEROPENEM 1,000 MG in SODIUM CHLORIDE 0.9% 100 ML IV SCH ×3 (04:35→21:44)
[2018-06-28 04:38] LABS: ABG Base Excess 11.8 MMOL/L (-2.5-2.5); ABG HCO3 35.6 MMOL/L (20-26); ABG Oxygen Saturation 99.2 % (95-100); ABG PCO2 45.4 MM HG (35-48); ABG PH 7.511 (7.35-7.45); ABG TCO2 32.5 MMOL/L (23-27); Allen Test Positive; Pt O2 Delivery Device Venturi Mask
[2018-06-28] MEDS: DORNASE ALFA 2.5 MG/2.5 ML VIAL RESP TX SCH ×2 (07:40→19:34)
[2018-06-28] MEDS: cycloSPORINE OPH EMUL 1 VIAL BOTH EYES SCH ×2 (09:18→21:45)
[2018-06-28] MEDS: methylPREDNISolone SOD SUC 40 MG/1 ML VIAL IV SCH ×2 (09:18→21:45)
[2018-06-28] MEDS: ASPIRIN CHEW 81 MG TABLET PO SCH (09:19)
[2018-06-28] MEDS: CHOLECALCIFEROL 1,000 UNIT TABLET PO SCH (09:19)
[2018-06-28] MEDS: MULTIVITAMIN (CENTRUM) TABLET PO SCH (09:19)
[2018-06-28] MEDS: DILTIAZEM 60 MG TABLET PO SCH ×2 (09:19→21:44)
[2018-06-28] MEDS: METOPROLOL TARTRATE 25 MG TABLET PO SCH ×2 (09:19→21:45)
[2018-06-28] MEDS: LISINOPRIL 20 MG TABLET PO SCH (09:19)
[2018-06-28] MEDS: MONTELUKAST 10 MG TABLET PO SCH (09:19)
[2018-06-28] MEDS: SERTRALINE 100 MG TABLET PO SCH (09:19)
[2018-06-28] MEDS: LANSOPRAZOLE ODT 30 MG TABLET PO SCH (09:20)
[2018-06-28] MEDS: LACTULOSE 20 GM/30 ML UDCUP PO SCH (09:20)
[2018-06-28] MEDS: POLYETHYLENE GLYCOL POWDER 17 GM PACK PO SCH (09:20)
[2018-06-28] MEDS: MENTHOL/ZINC OXIDE OINT 71 GM JAR TOP SCH ×2 (09:20→21:44)
[2018-06-28] MEDS: CALCIUM (CARBONATE)/VITAMIN D 600 MG-400 UNIT TABLET PO SCH (09:20)
[2018-06-28] MEDS: PROPOFOL 1,000 MG/100 ML BOTTLE IV SCH (10:09)
[2018-06-28] MEDS ORDERED: ONDANSETRON 4 MG/2 ML VIAL IV PRN (10:40)
[2018-06-28] MEDS: ENOXAPARIN 40 MG/0.4 ML SYRINGE SUBCUT SCH (14:52)
[2018-06-28] MEDS: LEVOFLOXACIN INJ 500 MG in PREMIX 1 EACH IV SCH (14:53)
[2018-06-28] MEDS: ROSUVASTATIN 10 MG TABLET PO SCH (21:45)
[2018-06-28] MEDS: TERAZOSIN 5 MG CAPSULE PO SCH (21:45)
[2018-06-29] MEDS: ALBUTEROL/IPRATROPIUM 3 ML NEB RESP TX SCH ×3 (00:54→12:33)
[2018-06-29] MEDS: INSULIN LISPRO 100 UNIT/ML SUBCUT SCH ×3 (01:24→12:33)
[2018-06-29 04:04] LABS: Eosinophils # 0.1 10*3/uL (0.0-0.87); Eosinophils % 2.4 % (0.00-10.9); Hematocrit 30.1 VOL% (35.7-47.0); Hemoglobin 9.7 GM/DL (12.0-16.0); Immature Granulocytes % 0.9 %; Immature Granulocytes Absolute 0.03 #; Lymphocytes # 0.4 10*3/uL (1.4-4.0); Lymphocytes % 12.8 % (21.3-54.2); Mean Corpuscular HGB Conc 32.2 GM/DL (32-36); Mean Platelet Volume 10.6 FL (9.6-12.0); Monocytes % 5.7 % (1.7-12.7); Neutrophils % 78.2 % (38.7-73.9); Red Cell Distribution Width 13.8 % (9.3-17.3); White Blood Count 3.4 T/CUMM (4-12)
[2018-06-29 04:05] LABS: Platelet Count 85 T/CUMM (130-400)
[2018-06-29 04:28] LABS: Calcium 8.2 MG/DL (8.5-10.1); Osmolality,Calculated 282.3 MOS/KG (273-304)
[2018-06-29] MEDS: MEROPENEM 1,000 MG in SODIUM CHLORIDE 0.9% 100 ML IV SCH (04:44)
[2018-06-29 05:29] LABS: Hypochromasia 1+; Microcytosis 2+; Ovalocytes 1+; Platelet Estimate Decreased
[2018-06-29 05:30] LABS: Anisocytosis 2+
[2018-06-29 05:36] LABS: Prealbumin 17.9 MG/DL (20-40)
[2018-06-29] MEDS: DORNASE ALFA 2.5 MG/2.5 ML VIAL RESP TX SCH (06:57)
[2018-06-29] MEDS: METOPROLOL TARTRATE 25 MG TABLET PO SCH (09:15)
[2018-06-29] MEDS: CALCIUM (CARBONATE)/VITAMIN D 600 MG-400 UNIT TABLET PO SCH (09:16)
[2018-06-29] MEDS: CHOLECALCIFEROL 1,000 UNIT TABLET PO SCH (09:16)
[2018-06-29] MEDS: LANSOPRAZOLE ODT 30 MG TABLET PO SCH (09:17)
[2018-06-29] MEDS: LISINOPRIL 20 MG TABLET PO SCH (09:17)
[2018-06-29] MEDS: MULTIVITAMIN (CENTRUM) TABLET PO SCH (09:17)
[2018-06-29] MEDS: ASPIRIN CHEW 81 MG TABLET PO SCH (09:17)
[2018-06-29] MEDS: MONTELUKAST 10 MG TABLET PO SCH (09:17)
[2018-06-29] MEDS: DILTIAZEM 60 MG TABLET PO SCH (09:17)
[2018-06-29] MEDS: SERTRALINE 100 MG TABLET PO SCH (09:17)
[2018-06-29] MEDS: cycloSPORINE OPH EMUL 1 VIAL BOTH EYES SCH (09:18)
[2018-06-29] MEDS: methylPREDNISolone SOD SUC 40 MG/1 ML VIAL IV SCH (09:18)
[2018-06-29] MEDS: POLYETHYLENE GLYCOL POWDER 17 GM PACK PO SCH (09:18)
[2018-06-29 09:26] VITALS: BP 120/71
[2018-06-29] MEDS: MENTHOL/ZINC OXIDE OINT 71 GM JAR TOP SCH (09:52)
[2018-06-29] MEDS: LACTULOSE 20 GM/30 ML UDCUP PO SCH (09:52)
== END 2018-06-29 13:29 | DRG 870 ==
LOC: EDBD → EDUNIT# → N.ED 11:32 → SUATTDRO 13:24 → N.EDINP 13:24 → N.CC 18:33
PROVIDERS: ADMIT Internal Medicine; ATTEND Internal Medicine Geriatric Medicine

== ENCOUNTER 2019-08-29 19:17 | Inpatient (IN) ==
[2019-08-29] MEDS ORDERED: SODIUM CHLORIDE 0.9% 1,000 ML IV STA (19:52)
[2019-08-29] MEDS ORDERED: ONDANSETRON 4 MG/2 ML VIAL IV STA (19:52)
[2019-08-29] MEDS ORDERED: PANTOPRAZOLE 40 MG VIAL IV STA (19:52)
[2019-08-29] MEDS ORDERED: HYDROmorphone 2 MG/1 ML VIAL IV STA (19:52)
[2019-08-29 20:56] LABS: Basophils # 0.1 10*3/uL (0.0-0.2); Basophils % 0.3 % (0.0-0.8); Hematocrit 39.2 VOL% (35.7-47.0); Hemoglobin 12.3 GM/DL (12.0-16.0); Immature Granulocytes % 0.5 %; Immature Granulocytes Absolute 0.11 #; Mean Corpuscular HGB Conc 31.4 GM/DL (32-36); Mean Corpuscular Volume 83.1 FL (87-102); Mean Platelet Volume 10.4 FL (9.6-12.0); Monocytes % 3.6 % (1.7-12.7); Neutrophils % 27.6 % (38.7-73.9); Platelet Count 146 T/CUMM (130-400); Red Blood Count 4.72 MC/CUMM (3.8-5.5); Red Cell Distribution Width 15.9 % (9.3-17.3); White Blood Count 23.5 T/CUMM (4-12)
[2019-08-29 21:18] LABS: Atypical Lymphocytes Few; Burr Cells Few; Lymphocytes 56 % (20-55); Platelet Estimate Adequate; Segmented Neutrophils 42 % (50-85); Total Cells Counted 100
[2019-08-29 21:21] LABS: Albumin 2.8 G/DL (3.4-5.0); Bilirubin,Total 0.6 MG/DL (0.2-1.0); Calcium 8.7 MG/DL (8.5-10.1); Osmolality,Calculated 288.3 MOS/KG (273-304)
[2019-08-29 22:36] LABS: ABG Base Excess -13.4 MMOL/L (-2.5-2.5); ABG HCO3 14.2 MMOL/L (20-26); ABG Oxygen Saturation 98.1 % (95-100); ABG PCO2 26.6 MM HG (35-48); ABG PH 7.273 (7.35-7.45); ABG TCO2 11.1 MMOL/L (23-27); Allen Test Positive
[2019-08-29] MEDS ORDERED: SODIUM BICARBONATE 50 MEQ/50 ML VIAL IV STA (22:39)
[2019-08-29] MEDS ORDERED: PIPERACILLIN/TAZOBACTAM 3,375 MG in SODIUM CHLORIDE 0.9% 100 ML IV STA (22:39)
[2019-08-29] MEDS ORDERED: NOREPINEPHRINE 8 MG in SODIUM CHLORIDE 0.9% 242 ML IV PRN (22:43)
[2019-08-30 00:29] LABS: Apearance,Urine Slightly Hazy (Clear); Bilirubin,Urine Negative (Negative); Blood, Urine Negative (Negative); Glucose,Urine (UA) Negative (Negative); Hyaline Casts,Urine 12 /LPF (0-3); Ketones,Urine Negative (Negative); Mucus,Urine Occasional /LPF (Occasional); Nitrite,Urine Negative (Negative); Protein,Urine Negative; RBC,Urine <1 /HPF (0-4); Squamous Epithelial Cell,Urine Occasional /HPF (0-10); Urine Color Yellow (Yellow); Urine Specific Gravity 1.013 (1.001-1.035); Urine Urobilinogen < 2.0 EU/DL (0.2-1.0); WBC,Urine <1 /HPF (0-6)
[2019-08-30] MEDS ORDERED: DEXTROSE 50% 25 GM/50 ML VIAL IV PRN (01:50)
[2019-08-30] MEDS ORDERED: guaiFENesin/DM ER 600-30 MG TABLET PO PRN (01:50)
[2019-08-30] MEDS ORDERED: hydrALAZINE 20 MG/1 ML VIAL IV PRN (01:50)
[2019-08-30] MEDS ORDERED: NICOTINE 21 MG/24 HR PATCH TRANSDERM PRN (01:50)
[2019-08-30] MEDS ORDERED: diphenhydrAMINE CAP 25 MG CAPSULE PO PRN (01:50)
[2019-08-30] MEDS ORDERED: GLUCAGON 1 MG VIAL IM PRN (01:50)
[2019-08-30] MEDS: SODIUM CHLORIDE 0.9% 1,000 ML IV SCH ×2 (02:45→11:10)
[2019-08-30] MEDS ORDERED: VANCOMYCIN 1,000 MG VIAL ONE (02:46)
[2019-08-30] MEDS ORDERED: VANCOMYCIN INJ 1,000 MG in SODIUM CHLORIDE 0.9% 250 ML IV ONE (03:00)
[2019-08-30] MEDS ORDERED: MEROPENEM 500 MG in SODIUM CHLORIDE 0.9% 100 ML IV SCH (03:00)
[2019-08-30] MEDS: MORPHINE 4 MG/1 ML VIAL IV PRN (04:58)
[2019-08-30 06:53] LABS: Basophils % 0.2 % (0.0-0.8); Eosinophils % 0.2 % (0.00-10.9); Hematocrit 31.9 VOL% (35.7-47.0); Immature Granulocytes % 0.3 %; Immature Granulocytes Absolute 0.06 #; Lymphocytes # 12.8 10*3/uL (1.4-4.0); Lymphocytes % 70.1 % (21.3-54.2); Mean Corpuscular HGB Conc 30.4 GM/DL (32-36); Mean Corpuscular Volume 87.4 FL (87-102); Mean Platelet Volume 10.3 FL (9.6-12.0); Neutrophils % 23.2 % (38.7-73.9); Platelet Count 127 T/CUMM (130-400); Red Cell Distribution Width 16.1 % (9.3-17.3); White Blood Count 18.2 T/CUMM (4-12)
[2019-08-30 06:54] LABS: Hemoglobin 9.7 GM/DL (12.0-16.0); Red Blood Count 3.65 MC/CUMM (3.8-5.5)
[2019-08-30 07:01] LABS: Band Neutrophils 2 % (0-10); Burr Cells Slight; Eosinophils 1 % (0-10); Hypochromasia 1+; Lymphocytes 58 % (20-55); Ovalocytes Slight; Platelet Estimate Normal; Segmented Neutrophils 37 % (50-85); Total Cells Counted 100
[2019-08-30 07:02] LABS: Atypical Lymphocytes Few; Microcytosis Slight
[2019-08-30 07:05] LABS: Albumin 2.4 G/DL (3.4-5.0); Bilirubin,Total 0.4 MG/DL (0.2-1.0); Calcium 8.2 MG/DL (8.5-10.1); Osmolality,Calculated 288.3 MOS/KG (273-304); Total Protein 5.2 G/DL (6.4-8.3)
[2019-08-30 07:44] LABS: Hepatitis B Core IgM Quant 0.14 Index; Hepatitis B Surface Ag Quant < 0.10 Index; Hepatitis B Surface Ag Result Negative (Negative); Hepatitis C Virus Ab Result Negative (Negative)
[2019-08-30 08:45] LABS: Albumin 2.5 G/DL (3.4-5.0); Total Protein 4.8 G/DL (6.4-8.3)
[2019-08-30 08:49] LABS: INR 1.2; PT Patient Result 13.1 SECS (9.8-11.9)
[2019-08-30 10:45] LABS: Neutrophils,Peritoneal Fluid 4 %
[2019-08-30 10:48] LABS: RBC,Peritoneal Fluid < 1 T/CUMM
[2019-08-30 10:49] LABS: Amylase,Peritoneal Fluid 26 U/L
[2019-08-30 11:01] LABS: Total Protein,Peritoneal Fluid 3.8 G/DL
[2019-08-30 11:24] LABS: LDH,Peritoneal Fluid 120 U/L
[2019-08-30] MEDS: metroNIDAZOLE INJ 500 MG in PREMIX 1 EACH IV SCH ×2 (11:31→18:41)
[2019-08-30] MEDS: CEFEPIME 1,000 MG in SODIUM CHLORIDE 0.9% 100 ML IV SCH ×2 (12:25→21:04)
[2019-08-30] MEDS: SODIUM BICARB INJ 100 MEQ in DEXTROSE 5% 1,000 ML IV SCH (15:19)
[2019-08-30] MEDS: ONDANSETRON 4 MG/2 ML VIAL IV PRN (21:20)
[2019-08-31] MEDS: SODIUM BICARB INJ 100 MEQ in DEXTROSE 5% 1,000 ML IV SCH ×2 (02:40→14:09)
[2019-08-31] MEDS ORDERED: VANCOMYCIN INJ 1,000 MG in SODIUM CHLORIDE 0.9% 250 ML IV SCH (03:00)
[2019-08-31] MEDS: metroNIDAZOLE INJ 500 MG in PREMIX 1 EACH IV SCH ×3 (03:17→23:06)
[2019-08-31] MEDS: CEFEPIME 1,000 MG in SODIUM CHLORIDE 0.9% 100 ML IV SCH ×3 (05:07→20:35)
[2019-08-31 05:29] LABS: Basophils % 0.3 % (0.0-0.8); Eosinophils # 0.1 10*3/uL (0.0-0.87); Eosinophils % 1.2 % (0.00-10.9); Immature Granulocytes % 0.4 %; Immature Granulocytes Absolute 0.03 #; Lymphocytes # 4.9 10*3/uL (1.4-4.0); Lymphocytes % 66.5 % (21.3-54.2); Mean Corpuscular HGB Conc 31.7 GM/DL (32-36); Mean Corpuscular Volume 83.9 FL (87-102); Mean Platelet Volume 10.6 FL (9.6-12.0); Monocytes % 6.7 % (1.7-12.7); Neutrophils % 24.9 % (38.7-73.9); Red Cell Distribution Width 15.9 % (9.3-17.3)
[2019-08-31 05:44] LABS: Calcium 7.6 MG/DL (8.5-10.1); Osmolality,Calculated 290.1 MOS/KG (273-304)
[2019-08-31 05:51] LABS: % Iron Saturation 13.2 % (18-50)
[2019-08-31 05:54] LABS: Platelet Count 93 T/CUMM (130-400)
[2019-08-31 05:55] LABS: Hemoglobin 7.6 GM/DL (12.0-16.0); Red Blood Count 2.86 MC/CUMM (3.8-5.5); White Blood Count 7.4 T/CUMM (4-12)
[2019-08-31 07:21] LABS: Anisocytosis 1+; Band Neutrophils 2 % (0-10); Elliptocytes Few; Eosinophils 2 % (0-10); Hypochromasia 3+; Lymphocytes 48 % (20-55); Microcytosis Slight; Ovalocytes Few; Poikilocytosis 1+; Polychromasia Slight; Schistocytes Slight; Segmented Neutrophils 29 % (50-85); Total Cells Counted 100
[2019-08-31 07:22] LABS: Platelet Estimate Adequate
[2019-08-31] MEDS: LINACLOTIDE 145 MCG CAPSULE PO SCH (09:26)
[2019-08-31 12:01] LABS: Hematocrit 26.4 VOL% (35.7-47.0); Hemoglobin 8.6 GM/DL (12.0-16.0)
[2019-08-31] MEDS: cycloSPORINE OPH EMUL 1 VIAL BOTH EYES SCH ×2 (14:09→20:28)
[2019-08-31] MEDS ORDERED: POLYETHYLENE GLYCOL 3350/ELECTROLYTES 4,000 ML BOTTLE PO ONE (14:33)
[2019-08-31] MEDS: IRON SUCROSE 200 MG in SODIUM CHLORIDE 0.9% 100 ML IV SCH (17:08)
[2019-08-31] MEDS ORDERED: ALBUTEROL/IPRATROPIUM 3 ML NEB RESP TX PRN (17:48)
[2019-08-31] MEDS: ONDANSETRON 4 MG/2 ML VIAL IV PRN (20:33)
[2019-09-01] MEDS: SODIUM BICARB INJ 100 MEQ in DEXTROSE 5% 1,000 ML IV SCH ×2 (00:48→12:26)
[2019-09-01] MEDS: CEFEPIME 1,000 MG in SODIUM CHLORIDE 0.9% 100 ML IV SCH ×3 (03:54→21:09)
[2019-09-01] MEDS: ACETAMINOPHEN 325 MG TABLET PO PRN ×2 (04:00→12:26)
[2019-09-01] MEDS: metroNIDAZOLE INJ 500 MG in PREMIX 1 EACH IV SCH ×3 (06:15→23:24)
[2019-09-01 06:46] LABS: Calcium 7.8 MG/DL (8.5-10.1); Osmolality,Calculated 282.4 MOS/KG (273-304)
[2019-09-01 08:37] LABS: Basophils % 0.2 % (0.0-0.8); Eosinophils % 0.4 % (0.00-10.9); Hematocrit 24.3 VOL% (35.7-47.0); Hemoglobin 7.8 GM/DL (12.0-16.0); Immature Granulocytes % 0.3 %; Immature Granulocytes Absolute 0.03 #; Lymphocytes # 8.2 10*3/uL (1.4-4.0); Lymphocytes % 75.2 % (21.3-54.2); Mean Corpuscular HGB Conc 32.1 GM/DL (32-36); Mean Corpuscular Volume 82.4 FL (87-102); Mean Platelet Volume 10.2 FL (9.6-12.0); Monocytes % 7.8 % (1.7-12.7); Neutrophils % 16.1 % (38.7-73.9); Red Blood Count 2.95 MC/CUMM (3.8-5.5); Red Cell Distribution Width 15.6 % (9.3-17.3); White Blood Count 10.9 T/CUMM (4-12)
[2019-09-01 08:38] LABS: Platelet Count 94 T/CUMM (130-400)
[2019-09-01 08:56] LABS: Eosinophils 1 % (0-10); Hypochromasia 2+; Lymphocytes 81 % (20-55); Microcytosis 1+; Platelet Estimate Decreased; Segmented Neutrophils 15 % (50-85); Total Cells Counted 100
[2019-09-01 08:57] LABS: Atypical Lymphocytes Few
[2019-09-01 08:58] LABS: Apearance,Urine CLEAR (Clear); Bacteria,Urine Occasional /HPF (Few); Bilirubin,Urine Negative (Negative); Blood, Urine Small mg/dL (Negative); Glucose,Urine (UA) Negative (Negative); Ketones,Urine Negative (Negative); Mucus,Urine Occasional /LPF (Occasional); Nitrite,Urine Negative (Negative); Protein,Urine Negative; RBC,Urine 4 /HPF (0-4); Urine Color Straw (Yellow); Urine Specific Gravity 1.004 (1.001-1.035); Urine Urobilinogen < 2.0 EU/DL (0.2-1.0); WBC,Urine 7 /HPF (0-6)
[2019-09-01] MEDS: IRON SUCROSE 200 MG in SODIUM CHLORIDE 0.9% 100 ML IV SCH (09:40)
[2019-09-01] MEDS: LINACLOTIDE 145 MCG CAPSULE PO SCH (09:40)
[2019-09-01] MEDS: IRON (CARBONYL)/VIT C/B12/FA TABLET PO SCH (09:40)
[2019-09-01] MEDS: MULTIVITAMIN (CENTRUM) TABLET PO SCH (09:40)
[2019-09-01] MEDS: cycloSPORINE OPH EMUL 1 VIAL BOTH EYES SCH ×2 (09:40→21:14)
[2019-09-01] MEDS: PANTOPRAZOLE 40 MG TABLET PO SCH (09:40)
[2019-09-01] MEDS: MAGNESIUM CHLORIDE 64 MG TABLET PO SCH (09:40)
[2019-09-01] MEDS: CALCIUM (CARBONATE)/VITAMIN D 600 MG-400 UNIT TABLET PO SCH (09:40)
[2019-09-01] MEDS: CHOLECALCIFEROL 400 UNIT TABLET PO SCH (09:41)
[2019-09-01] MEDS: SERTRALINE 100 MG TABLET PO SCH (09:41)
[2019-09-01] MEDS: ONDANSETRON 4 MG/2 ML VIAL IV PRN (21:05)
[2019-09-02] MEDS: ACETAMINOPHEN 325 MG TABLET PO PRN (00:26)
[2019-09-02] MEDS: SODIUM BICARB INJ 100 MEQ in DEXTROSE 5% 1,000 ML IV SCH ×2 (02:20→09:04)
[2019-09-02] MEDS: CEFEPIME 1,000 MG in SODIUM CHLORIDE 0.9% 100 ML IV SCH ×3 (03:59→22:55)
[2019-09-02 06:04] LABS: Basophils % 0.3 % (0.0-0.8); Eosinophils % 0.3 % (0.00-10.9); Hematocrit 23.6 VOL% (35.7-47.0); Hemoglobin 7.8 GM/DL (12.0-16.0); Immature Granulocytes % 0.3 %; Immature Granulocytes Absolute 0.03 #; Lymphocytes # 8.2 10*3/uL (1.4-4.0); Lymphocytes % 75.5 % (21.3-54.2); Mean Corpuscular HGB Conc 33.1 GM/DL (32-36); Mean Corpuscular Volume 80.8 FL (87-102); Mean Platelet Volume 9.6 FL (9.6-12.0); Monocytes % 7.2 % (1.7-12.7); Neutrophils % 16.4 % (38.7-73.9); Red Blood Count 2.92 MC/CUMM (3.8-5.5); Red Cell Distribution Width 15.5 % (9.3-17.3); White Blood Count 10.9 T/CUMM (4-12)
[2019-09-02 06:10] LABS: Platelet Count 89 T/CUMM (130-400)
[2019-09-02] MEDS: metroNIDAZOLE INJ 500 MG in PREMIX 1 EACH IV SCH ×2 (06:25→18:34)
[2019-09-02 06:32] LABS: Atypical Lymphocytes Few; Hypochromasia 1+; Lymphocytes 80 % (20-55); Microcytosis Slight; Ovalocytes Slight; Platelet Estimate Decreased; Segmented Neutrophils 18 % (50-85); Total Cells Counted 100
[2019-09-02 06:43] LABS: Calcium 8.1 MG/DL (8.5-10.1); Osmolality,Calculated 280.3 MOS/KG (273-304)
[2019-09-02] MEDS ORDERED: SODIUM CHLORIDE 0.9% 1,000 ML IV PRN ×2 (08:12→08:14)
[2019-09-02] MEDS: CHOLECALCIFEROL 400 UNIT TABLET PO SCH (08:48)
[2019-09-02] MEDS: IRON (CARBONYL)/VIT C/B12/FA TABLET PO SCH (08:48)
[2019-09-02] MEDS: CALCIUM (CARBONATE)/VITAMIN D 600 MG-400 UNIT TABLET PO SCH (08:48)
[2019-09-02] MEDS: cycloSPORINE OPH EMUL 1 VIAL BOTH EYES SCH ×2 (08:48→22:32)
[2019-09-02] MEDS: MULTIVITAMIN (CENTRUM) TABLET PO SCH (08:48)
[2019-09-02] MEDS: BISACODYL 5 MG TABLET PO SCH ×2 (08:49→16:34)
[2019-09-02] MEDS: MAGNESIUM CHLORIDE 64 MG TABLET PO SCH (08:49)
[2019-09-02] MEDS: IRON SUCROSE 200 MG in SODIUM CHLORIDE 0.9% 100 ML IV SCH (08:58)
[2019-09-02] MEDS: ONDANSETRON 4 MG/2 ML VIAL IV PRN ×3 (08:59→18:34)
[2019-09-02] MEDS: SERTRALINE 100 MG TABLET PO SCH (09:03)
[2019-09-02] MEDS: PANTOPRAZOLE 40 MG TABLET PO SCH (09:05)
[2019-09-02] MEDS: VANCOMYCIN INJ 1,000 MG in SODIUM CHLORIDE 0.9% 250 ML IV SCH (10:59)
[2019-09-02] MEDS ORDERED: POLYETHYLENE GLYCOL 3350/ELECTROLYTES 4,000 ML BOTTLE PO ONE (17:00)
[2019-09-02] MEDS: DEXTROSE 5% NACL 0.45% 1,000 ML IV SCH (18:34)
[2019-09-02 19:25] LABS: Hematocrit 27.7 VOL% (35.7-47.0)
[2019-09-02] MEDS ORDERED: MAGNESIUM CITRATE 300 ML BOTTLE PO ONE (21:00)
[2019-09-03] MEDS: BISACODYL 5 MG TABLET PO SCH (00:20)
[2019-09-03] MEDS: metroNIDAZOLE INJ 500 MG in PREMIX 1 EACH IV SCH ×3 (00:21→23:23)
[2019-09-03] MEDS: ONDANSETRON 4 MG/2 ML VIAL IV PRN ×3 (05:08→14:02)
[2019-09-03 05:12] LABS: Basophils % 0.4 % (0.0-0.8); Eosinophils # 0.1 10*3/uL (0.0-0.87); Eosinophils % 0.5 % (0.00-10.9); Hematocrit 27.1 VOL% (35.7-47.0); Hemoglobin 9.1 GM/DL (12.0-16.0); Immature Granulocytes % 0.3 %; Immature Granulocytes Absolute 0.03 #; Lymphocytes # 8.4 10*3/uL (1.4-4.0); Lymphocytes % 74.4 % (21.3-54.2); Mean Corpuscular HGB Conc 33.6 GM/DL (32-36); Mean Corpuscular Volume 80.2 FL (87-102); Mean Platelet Volume 10.4 FL (9.6-12.0); Neutrophils % 17.4 % (38.7-73.9); Red Blood Count 3.38 MC/CUMM (3.8-5.5); Red Cell Distribution Width 15.5 % (9.3-17.3); White Blood Count 11.2 T/CUMM (4-12)
[2019-09-03 05:16] LABS: Platelet Count 82 T/CUMM (130-400)
[2019-09-03 05:32] LABS: Osmolality,Calculated 277.4 MOS/KG (273-304)
[2019-09-03 05:37] LABS: Band Neutrophils 1 % (0-10); Lymphocytes 72 % (20-55); Segmented Neutrophils 19 % (50-85); Total Cells Counted 100
[2019-09-03 05:38] LABS: Platelet Estimate Decreased; Reactive Lymphocytes 2+
[2019-09-03] MEDS ORDERED: SODIUM PHOSPHATE ENEMA 133 ML BOTTLE RECTAL ONE (06:00)
[2019-09-03] MEDS: POTASSIUM CHLORIDE 20 MEQ TABLET PO PRN (06:01)
[2019-09-03] MEDS: CEFEPIME 1,000 MG in SODIUM CHLORIDE 0.9% 100 ML IV SCH ×2 (06:05→21:12)
[2019-09-03] MEDS: DEXTROSE 5% NACL 0.45% 1,000 ML IV SCH ×3 (07:18→23:24)
[2019-09-03] MEDS ORDERED: POTASSIUM CHLORIDE 20 MEQ/15 ML UDCUP PO ONE (07:19)
[2019-09-03] MEDS: POTASSIUM CHLORIDE RIDER 10 MEQ in PREMIX 1 EACH IV SCH ×4 (07:35→10:59)
[2019-09-03] MEDS ORDERED: LIDOCAINE 2% 5 ML VIAL ONE (09:00)
[2019-09-03] MEDS ORDERED: PHENYLEPHRINE 1 MG/10 ML SYRINGE IV ONE (09:00)
[2019-09-03] MEDS ORDERED: propofoL 200 MG/20 ML VIAL IV ONE (09:00)
[2019-09-03] MEDS: MULTIVITAMIN (CENTRUM) TABLET PO SCH (09:17)
[2019-09-03] MEDS: IRON (CARBONYL)/VIT C/B12/FA TABLET PO SCH (09:17)
[2019-09-03] MEDS: CALCIUM (CARBONATE)/VITAMIN D 600 MG-400 UNIT TABLET PO SCH (09:17)
[2019-09-03] MEDS: MAGNESIUM CHLORIDE 64 MG TABLET PO SCH ×3 (09:18→21:12)
[2019-09-03] MEDS: SERTRALINE 100 MG TABLET PO SCH (09:18)
[2019-09-03] MEDS: CHOLECALCIFEROL 400 UNIT TABLET PO SCH (09:18)
[2019-09-03] MEDS: PANTOPRAZOLE 40 MG TABLET PO SCH (09:18)
[2019-09-03] MEDS: cycloSPORINE OPH EMUL 1 VIAL BOTH EYES SCH ×2 (09:56→21:21)
[2019-09-03] MEDS ORDERED: MAGNESIUM SULF RIDER 4 GM in PREMIX 1 EACH IV PRN (11:17)
[2019-09-03] MEDS: LACTATED RINGERS 1,000 ML IV SCH (11:59)
[2019-09-03] MEDS: MAGNESIUM SULF RIDER 2 GM in PREMIX 1 EACH IV PRN ×2 (12:00→15:40)
[2019-09-03] MEDS ORDERED: oxyCODONE/ACETAMINOPHEN 5-325 MG TABLET PO PRN (13:10)
[2019-09-03 13:46] LABS: Antinuclear Ab, S 1.9 U
[2019-09-03 14:41] LABS: Smooth Muscle Antibody Negative (Negative)
[2019-09-03] MEDS: POLYETHYLENE GLYCOL POWDER 17 GM PACK PO SCH ×2 (15:39→21:11)
[2019-09-03] MEDS: MORPHINE 4 MG/1 ML VIAL IV PRN (15:40)
[2019-09-03] MEDS: IRON SUCROSE 200 MG in SODIUM CHLORIDE 0.9% 100 ML IV SCH (17:44)
[2019-09-03] MEDS: VANCOMYCIN INJ 1,000 MG in SODIUM CHLORIDE 0.9% 250 ML IV SCH (18:20)
[2019-09-04] MEDS: ONDANSETRON 4 MG/2 ML VIAL IV PRN ×3 (00:45→14:55)
[2019-09-04] MEDS: CEFEPIME 1,000 MG in SODIUM CHLORIDE 0.9% 100 ML IV SCH ×3 (04:52→20:31)
[2019-09-04 05:26] LABS: Basophils % 0.3 % (0.0-0.8); Eosinophils # 0.1 10*3/uL (0.0-0.87); Eosinophils % 0.6 % (0.00-10.9); Hematocrit 27.9 VOL% (35.7-47.0); Immature Granulocytes % 0.4 %; Immature Granulocytes Absolute 0.04 #; Lymphocytes % 73.5 % (21.3-54.2); Mean Corpuscular HGB Conc 32.3 GM/DL (32-36); Mean Platelet Volume 10.6 FL (9.6-12.0); Monocytes % 9.1 % (1.7-12.7); Neutrophils % 16.1 % (38.7-73.9); Red Blood Count 3.36 MC/CUMM (3.8-5.5); Red Cell Distribution Width 15.9 % (9.3-17.3); White Blood Count 10.9 T/CUMM (4-12)
[2019-09-04 05:27] LABS: Platelet Count 85 T/CUMM (130-400)
[2019-09-04 05:45] LABS: Atypical Lymphocytes Few; Lymphocytes 79 % (20-55); Platelet Estimate Decreased; Segmented Neutrophils 19 % (50-85); Total Cells Counted 100
[2019-09-04 05:46] LABS: Burr Cells Slight; Hypochromasia 1+; Microcytosis Slight; Ovalocytes Slight
[2019-09-04] MEDS: metroNIDAZOLE INJ 500 MG in PREMIX 1 EACH IV SCH ×3 (05:47→23:52)
[2019-09-04 05:59] LABS: Calcium 7.7 MG/DL (8.5-10.1); Osmolality,Calculated 277.4 MOS/KG (273-304)
[2019-09-04] MEDS: LINACLOTIDE 145 MCG CAPSULE PO SCH (08:21)
[2019-09-04] MEDS: cycloSPORINE OPH EMUL 1 VIAL BOTH EYES SCH ×2 (08:21→20:34)
[2019-09-04] MEDS: POLYETHYLENE GLYCOL POWDER 17 GM PACK PO SCH ×3 (08:22→21:34)
[2019-09-04] MEDS: MAGNESIUM CHLORIDE 64 MG TABLET PO SCH ×4 (08:23→20:34)
[2019-09-04] MEDS: CHOLECALCIFEROL 400 UNIT TABLET PO SCH (08:23)
[2019-09-04] MEDS: SERTRALINE 100 MG TABLET PO SCH (08:23)
[2019-09-04] MEDS: MULTIVITAMIN (CENTRUM) TABLET PO SCH (08:23)
[2019-09-04] MEDS: PANTOPRAZOLE 40 MG TABLET PO SCH (08:23)
[2019-09-04] MEDS: CALCIUM (CARBONATE)/VITAMIN D 600 MG-400 UNIT TABLET PO SCH (08:23)
[2019-09-04] MEDS: IRON (CARBONYL)/VIT C/B12/FA TABLET PO SCH (08:24)
[2019-09-04] MEDS: DEXTROSE 5% NACL 0.45% 1,000 ML IV SCH ×2 (08:24→19:46)
[2019-09-04] MEDS: IRON SUCROSE 200 MG in SODIUM CHLORIDE 0.9% 100 ML IV SCH (08:24)
[2019-09-04] MEDS: MAGNESIUM SULF RIDER 2 GM in PREMIX 1 EACH IV PRN (09:15)
[2019-09-04] MEDS: POTASSIUM CHLORIDE 20 MEQ TABLET PO PRN ×4 (09:15→18:34)
[2019-09-04] MEDS ORDERED: FUROSEMIDE 20 MG TABLET PO ONE (09:40)
[2019-09-04] MEDS: SPIRONOLACTONE 100 MG TABLET PO SCH (10:05)
[2019-09-04] MEDS: METOPROLOL TARTRATE 25 MG TABLET PO SCH ×2 (10:05→20:31)
[2019-09-04] MEDS: GABAPENTIN 100 MG CAPSULE PO SCH (10:05)
[2019-09-04] MEDS: LACTATED RINGERS 1,000 ML IV SCH (16:15)
[2019-09-04] MEDS ORDERED: GABAPENTIN 100 MG CAPSULE PO SCH (21:00)
[2019-09-05] MEDS: CEFEPIME 1,000 MG in SODIUM CHLORIDE 0.9% 100 ML IV SCH ×2 (05:17→12:33)
[2019-09-05] MEDS: metroNIDAZOLE INJ 500 MG in PREMIX 1 EACH IV SCH (06:06)
[2019-09-05] MEDS: SERTRALINE 100 MG TABLET PO SCH (09:10)
[2019-09-05] MEDS: MAGNESIUM CHLORIDE 64 MG TABLET PO SCH (09:11)
[2019-09-05] MEDS: MULTIVITAMIN (CENTRUM) TABLET PO SCH (09:11)
[2019-09-05] MEDS: IRON (CARBONYL)/VIT C/B12/FA TABLET PO SCH (09:11)
[2019-09-05] MEDS: METOPROLOL TARTRATE 25 MG TABLET PO SCH (09:11)
[2019-09-05] MEDS: SPIRONOLACTONE 100 MG TABLET PO SCH (09:11)
[2019-09-05] MEDS: CALCIUM (CARBONATE)/VITAMIN D 600 MG-400 UNIT TABLET PO SCH (09:11)
[2019-09-05] MEDS: LINACLOTIDE 145 MCG CAPSULE PO SCH (09:12)
[2019-09-05] MEDS: PANTOPRAZOLE 40 MG TABLET PO SCH (09:12)
[2019-09-05] MEDS: CHOLECALCIFEROL 400 UNIT TABLET PO SCH (09:12)
[2019-09-05] MEDS: cycloSPORINE OPH EMUL 1 VIAL BOTH EYES SCH (09:12)
[2019-09-05] MEDS: POLYETHYLENE GLYCOL POWDER 17 GM PACK PO SCH (09:12)
[2019-09-05] MEDS: GABAPENTIN 100 MG CAPSULE PO SCH (09:12)
[2019-09-05] MEDS: DEXTROSE 5% NACL 0.45% 1,000 ML IV SCH (11:16)
[2019-09-05 11:54] LABS: Double Stranded DNA Antibodies < 25.0 IU/ML
[2019-09-05 11:58] LABS: Anti SS-A Antibodies < 16 EU/ML
[2019-09-05 12:12] VITALS: BP 125/58
[2019-09-06 13:05] LABS: M. Tuberculosis PCR Result Negative (Negative); M. Tuberculosis PCR Source PERTIONEAL
== END 2019-09-05 13:39 | disposition swing bed (61) | DRG 348 ==
LOC: EDUNIT# → N.ED 19:17 → SUATTDRO 08-30 01:50 → N.EDINP 08-30 01:50 → N.3E 08-30 05:20 → N.4E 09-04 11:28
PROVIDERS: ADMIT Internal Medicine Geriatric Medicine; ATTEND Internal Medicine
PROC: [UNRECOGNIZED PROCEDURE] (2019-09-03 07:05)
PROC: COLONHP (2019-09-03 07:05)

== ENCOUNTER 2021-03-18 10:40 | Inpatient (IN) ==
[2021-03-18] MEDS ORDERED: SODIUM CHLORIDE 0.9% 1,000 ML IV STA (11:31)
[2021-03-18] MEDS ORDERED: AZITHROMYCIN 250 MG TABLET PO STA (11:38)
[2021-03-18] MEDS ORDERED: cefTRIAXone 1,000 MG in SODIUM CHLORIDE 0.9% 100 ML IV STA (11:38)
[2021-03-18 12:21] LABS: Basophils % 0.4 % (0.0-0.8); Eosinophils # 0.3 10*3/uL (0.0-0.87); Eosinophils % 3.7 % (0.00-10.9); Hematocrit 36.4 VOL% (35.7-47.0); Hemoglobin 12.3 GM/DL (12.0-16.0); Immature Granulocytes % 0.5 %; Immature Granulocytes Absolute 0.04 #; Lymphocytes # 1.3 10*3/uL (1.4-4.0); Lymphocytes % 16.9 % (21.3-54.2); Mean Corpuscular HGB Conc 33.8 GM/DL (32-36); Mean Corpuscular Volume 88.3 FL (87-102); Mean Platelet Volume 10.5 FL (9.6-12.0); Monocytes % 7.7 % (1.7-12.7); Neutrophils % 70.8 % (38.7-73.9); Platelet Count 113 T/CUMM (130-400); Red Blood Count 4.12 MC/CUMM (3.8-5.5); Red Cell Distribution Width 12.7 % (9.3-17.3); White Blood Count 7.9 T/CUMM (4-12)
[2021-03-18 12:44] LABS: Albumin 3.7 G/DL (3.4-5.0); Bilirubin,Total 0.7 MG/DL (0.20-1.00); Calcium 9.3 MG/DL (8.5-10.1); Osmolality,Calculated 293.8 MOS/KG (273-304); Total Protein 7.3 G/DL (6.4-8.2)
[2021-03-18] MEDS ORDERED: GLUCAGON 1 MG VIAL IM PRN (13:05)
[2021-03-18] MEDS ORDERED: DEXTROSE 10% 250 ML BAG IV PRN (13:05)
[2021-03-18] MEDS ORDERED: BISACODYL 5 MG TABLET PO PRN (13:06)
[2021-03-18] MEDS ORDERED: guaiFENesin/DM ER 600-30 MG TABLET PO PRN (13:06)
[2021-03-18] MEDS ORDERED: ONDANSETRON 4 MG/2 ML VIAL IV PRN (13:06)
[2021-03-18] MEDS ORDERED: ENOXAPARIN 30 MG/0.3 ML SYRINGE SUBCUT SCH (13:30)
[2021-03-18] MEDS ORDERED: LEVOFLOXACIN INJ 750 MG/150 ML PREMIX IV ONE (13:30)
[2021-03-18 13:38] LABS: Bilirubin,Urine Negative (Negative); Blood, Urine Negative (Negative); Glucose,Urine (UA) Negative (Negative); Ketones,Urine Negative (Negative); Nitrite,Urine Negative (Negative); Protein,Urine Negative; Urine Appearance Slightly Hazy (Clear); Urine Color Yellow (Yellow); Urine Specific Gravity 1.013 (1.001-1.035); Urine Urobilinogen < 2.0 EU/DL (<2.0)
[2021-03-18 14:18] LABS: Ferritin 1172.8 ng/mL (8-252)
[2021-03-18] MEDS: methylPREDNISolone SOD SUC 40 MG/1 ML VIAL IV SCH ×2 (14:23→22:22)
[2021-03-18] MEDS: SODIUM CHLORIDE 0.9% 1,000 ML IV SCH ×2 (14:23→22:22)
[2021-03-18] MEDS: ALBUTEROL INHALER 18 GM INH SCH ×2 (16:26→22:23)
[2021-03-18] MEDS: ASCORBIC ACID 500 MG TABLET PO SCH (22:22)
[2021-03-18] MEDS: FAMOTIDINE 20 MG TABLET PO SCH (22:22)
[2021-03-19] MEDS: ALBUTEROL INHALER 18 GM INH SCH ×4 (01:12→21:17)
[2021-03-19 05:30] LABS: Hematocrit 31.5 VOL% (35.7-47.0); Hemoglobin 10.3 GM/DL (12.0-16.0); Immature Granulocytes % 0.7 %; Immature Granulocytes Absolute 0.02 #; Lymphocytes # 0.5 10*3/uL (1.4-4.0); Lymphocytes % 18.4 % (21.3-54.2); Mean Corpuscular HGB Conc 32.7 GM/DL (32-36); Mean Corpuscular Volume 89.7 FL (87-102); Mean Platelet Volume 10.4 FL (9.6-12.0); Monocytes % 3.2 % (1.7-12.7); Neutrophils % 77.7 % (38.7-73.9); Platelet Count 78 T/CUMM (130-400); Red Blood Count 3.51 MC/CUMM (3.8-5.5); Red Cell Distribution Width 12.7 % (9.3-17.3); White Blood Count 2.8 T/CUMM (4-12)
[2021-03-19] MEDS: SODIUM CHLORIDE 0.9% 1,000 ML IV SCH ×2 (05:44→13:38)
[2021-03-19] MEDS: methylPREDNISolone SOD SUC 40 MG/1 ML VIAL IV SCH ×3 (05:44→21:17)
[2021-03-19 05:58] LABS: Albumin 2.9 G/DL (3.4-5.0); Bilirubin,Total 0.5 MG/DL (0.20-1.00); Calcium 8.5 MG/DL (8.5-10.1); Osmolality,Calculated 304.4 MOS/KG (273-304); Potassium 4.5 MMOL/L (3.5-5.1); Total Protein 6.2 G/DL (6.4-8.2)
[2021-03-19 06:02] LABS: Hypochromia Slight; Microcytosis 1+; Ovalocytes Slight; Platelet Estimate Decreased
[2021-03-19] MEDS ORDERED: PANTOPRAZOLE 40 MG TABLET PO SCH (09:00)
[2021-03-19] MEDS: ASCORBIC ACID 500 MG TABLET PO SCH ×2 (09:47→21:16)
[2021-03-19] MEDS: CETIRIZINE 10 MG TABLET PO SCH (09:47)
[2021-03-19] MEDS: ZINC GLUCONATE 50 MG TABLET PO SCH (09:47)
[2021-03-19] MEDS: FAMOTIDINE 20 MG TABLET PO SCH ×2 (09:48→21:16)
[2021-03-19] MEDS: CHOLECALCIFEROL 1,000 UNIT TABLET PO SCH (12:40)
[2021-03-19] MEDS: PANTOPRAZOLE 40 MG TABLET PO SCH (17:45)
[2021-03-19] MEDS: MONTELUKAST 10 MG TABLET PO SCH (17:45)
[2021-03-19] MEDS: BUDESONIDE 0.5 MG/2 ML NEB RESP TX SCH (20:43)
[2021-03-19] MEDS: ALBUTEROL/IPRATROPIUM 3 ML NEB RESP TX SCH (20:43)
[2021-03-19] MEDS ORDERED: LACTULOSE 20 GM/30 ML UDCUP PO SCH (21:00)
[2021-03-19] MEDS: HYDROCORTISONE 2.5% RECTAL CREAM 30 GM TUBE TOP SCH (21:11)
[2021-03-19] MEDS: PHENYLEPHRINE 0.25% SUPP RECTAL SCH (21:11)
[2021-03-19] MEDS: METOPROLOL TARTRATE 25 MG TABLET PO SCH (21:15)
[2021-03-19] MEDS: GABAPENTIN 100 MG CAPSULE PO SCH (21:15)
[2021-03-19] MEDS: cycloSPORINE OPH EMUL 1 VIAL BOTH EYES SCH (21:16)
[2021-03-19] MEDS: MEGESTROL 40 MG TABLET PO SCH (21:16)
[2021-03-19] MEDS: POLYETHYLENE GLYCOL POWDER 17 GM PACK PO SCH (21:17)
[2021-03-19] MEDS: LACTULOSE 20 GM/30 ML UDCUP PO SCH (21:17)
[2021-03-20] MEDS: SODIUM CHLORIDE 0.9% 1,000 ML IV SCH ×2 (00:04→16:43)
[2021-03-20] MEDS: ALBUTEROL INHALER 18 GM INH SCH (00:28)
[2021-03-20] MEDS: ALBUTEROL/IPRATROPIUM 3 ML NEB RESP TX SCH ×4 (00:37→19:45)
[2021-03-20] MEDS: PHENYLEPHRINE 0.25% SUPP RECTAL SCH ×4 (01:09→21:17)
[2021-03-20] MEDS: methylPREDNISolone SOD SUC 40 MG/1 ML VIAL IV SCH ×2 (05:30→17:25)
[2021-03-20 06:11] LABS: PT Patient Result 11.3 SECS (10.5-12.0)
[2021-03-20] MEDS: BUDESONIDE 0.5 MG/2 ML NEB RESP TX SCH ×2 (07:40→19:46)
[2021-03-20] MEDS: ZINC GLUCONATE 50 MG TABLET PO SCH (09:45)
[2021-03-20] MEDS: SERTRALINE 100 MG TABLET PO SCH (09:45)
[2021-03-20] MEDS: GABAPENTIN 100 MG CAPSULE PO SCH ×2 (09:46→21:07)
[2021-03-20] MEDS: FAMOTIDINE 20 MG TABLET PO SCH ×2 (09:46→21:07)
[2021-03-20] MEDS: MEGESTROL 40 MG TABLET PO SCH ×2 (09:46→21:07)
[2021-03-20] MEDS: CETIRIZINE 10 MG TABLET PO SCH (09:46)
[2021-03-20] MEDS: MONTELUKAST 10 MG TABLET PO SCH (09:46)
[2021-03-20] MEDS: METOPROLOL TARTRATE 25 MG TABLET PO SCH ×2 (09:46→21:07)
[2021-03-20] MEDS: ASCORBIC ACID 500 MG TABLET PO SCH ×2 (09:46→21:06)
[2021-03-20] MEDS: HYDROCORTISONE 2.5% RECTAL CREAM 30 GM TUBE TOP SCH ×2 (09:47→21:17)
[2021-03-20] MEDS: LACTULOSE 20 GM/30 ML UDCUP PO SCH ×2 (09:47→21:08)
[2021-03-20] MEDS: PANTOPRAZOLE 40 MG TABLET PO SCH (09:47)
[2021-03-20] MEDS: POLYETHYLENE GLYCOL POWDER 17 GM PACK PO SCH ×2 (09:47→21:08)
[2021-03-20] MEDS: cycloSPORINE OPH EMUL 1 VIAL BOTH EYES SCH ×2 (09:48→21:07)
[2021-03-20] MEDS: CHOLECALCIFEROL 1,000 UNIT TABLET PO SCH (09:51)
[2021-03-20] MEDS ORDERED: LEVOFLOXACIN INJ 500 MG/100 ML PREMIX IV SCH (13:30)
[2021-03-20] MEDS: SODIUM BICARB INJ 50 MEQ in SODIUM CHLORIDE 0.45% 1,000 ML IV SCH (17:25)
[2021-03-20] MEDS: MELATONIN 3 MG TABLET PO PRN (21:13)
[2021-03-21] MEDS: ALBUTEROL/IPRATROPIUM 3 ML NEB RESP TX SCH ×4 (00:47→19:06)
[2021-03-21] MEDS: BENZONATATE 100 MG CAPSULE PO PRN ×2 (00:52→20:39)
[2021-03-21] MEDS: SODIUM BICARB INJ 50 MEQ in SODIUM CHLORIDE 0.45% 1,000 ML IV SCH (00:52)
[2021-03-21] MEDS: methylPREDNISolone SOD SUC 40 MG/1 ML VIAL IV SCH ×4 (00:52→19:03)
[2021-03-21 06:29] LABS: Hematocrit 27.7 VOL% (35.7-47.0); Hemoglobin 9.4 GM/DL (12.0-16.0); Immature Granulocytes % 1.4 %; Immature Granulocytes Absolute 0.08 #; Lymphocytes # 0.2 10*3/uL (1.4-4.0); Lymphocytes % 2.7 % (21.3-54.2); Mean Corpuscular HGB Conc 33.9 GM/DL (32-36); Mean Corpuscular Volume 88.2 FL (87-102); Mean Platelet Volume 10.6 FL (9.6-12.0); Monocytes % 3.1 % (1.7-12.7); Neutrophils % 92.8 % (38.7-73.9); Platelet Count 88 T/CUMM (130-400); Red Blood Count 3.14 MC/CUMM (3.8-5.5); White Blood Count 5.9 T/CUMM (4-12)
[2021-03-21 06:48] LABS: Albumin 2.8 G/DL (3.4-5.0); Bilirubin,Total 0.4 MG/DL (0.20-1.00); Calcium 8.7 MG/DL (8.5-10.1); Osmolality,Calculated 282.5 MOS/KG (273-304); Potassium 3.9 MMOL/L (3.5-5.1); Total Protein 5.6 G/DL (6.4-8.2)
[2021-03-21 06:50] LABS: Anisocytosis 1+; Band Neutrophils 8 % (0-10); Lymphocytes 1 % (20-55); Platelet Estimate Decreased; Segmented Neutrophils 90 % (50-85); Total Cells Counted 100
[2021-03-21] MEDS: BUDESONIDE 0.5 MG/2 ML NEB RESP TX SCH ×2 (07:20→19:06)
[2021-03-21] MEDS: ZINC GLUCONATE 50 MG TABLET PO SCH (09:59)
[2021-03-21] MEDS: GABAPENTIN 100 MG CAPSULE PO SCH ×2 (10:00→20:39)
[2021-03-21] MEDS: MEGESTROL 40 MG TABLET PO SCH (10:00)
[2021-03-21] MEDS: ASCORBIC ACID 500 MG TABLET PO SCH ×2 (10:00→20:39)
[2021-03-21] MEDS: MONTELUKAST 10 MG TABLET PO SCH (10:00)
[2021-03-21] MEDS: FAMOTIDINE 20 MG TABLET PO SCH ×2 (10:00→20:39)
[2021-03-21] MEDS: CHOLECALCIFEROL 1,000 UNIT TABLET PO SCH (10:00)
[2021-03-21] MEDS: SERTRALINE 100 MG TABLET PO SCH (10:00)
[2021-03-21] MEDS: cycloSPORINE OPH EMUL 1 VIAL BOTH EYES SCH ×2 (10:01→20:39)
[2021-03-21] MEDS: CETIRIZINE 10 MG TABLET PO SCH (10:01)
[2021-03-21] MEDS: PANTOPRAZOLE 40 MG TABLET PO SCH (10:01)
[2021-03-21] MEDS: METOPROLOL TARTRATE 25 MG TABLET PO SCH ×2 (10:01→20:39)
[2021-03-21] MEDS: LACTULOSE 20 GM/30 ML UDCUP PO SCH (10:01)
[2021-03-21] MEDS: HYDROCORTISONE 2.5% RECTAL CREAM 30 GM TUBE TOP SCH ×2 (10:02→20:40)
[2021-03-21] MEDS ORDERED: FUROSEMIDE 40 MG/4 ML VIAL IV ONE (10:54)
[2021-03-21] MEDS: PHENYLEPHRINE 0.25% SUPP RECTAL SCH ×4 (13:23→20:40)
[2021-03-21] MEDS: POLYETHYLENE GLYCOL POWDER 17 GM PACK PO SCH ×2 (13:28→20:40)
[2021-03-21] MEDS: FLUTICASONE 50 MCG NASAL SPRAY 16 GM BOTTLE BOTH NARES SCH ×2 (13:28→20:49)
[2021-03-21] MEDS ORDERED: FUROSEMIDE 20 MG/2 ML VIAL IV ONE (15:13)
[2021-03-21] MEDS: PIPERACILLIN/TAZOBACTAM 3,375 MG in SODIUM CHLORIDE 0.9% 100 ML IV SCH ×2 (16:03→23:24)
[2021-03-21] MEDS: ACETAMINOPHEN 325 MG TABLET PO PRN (17:44)
[2021-03-22] MEDS: ALBUTEROL/IPRATROPIUM 3 ML NEB RESP TX SCH ×4 (00:49→19:12)
[2021-03-22] MEDS: methylPREDNISolone SOD SUC 40 MG/1 ML VIAL IV SCH ×3 (01:12→18:02)
[2021-03-22] MEDS: PIPERACILLIN/TAZOBACTAM 3,375 MG in SODIUM CHLORIDE 0.9% 100 ML IV SCH ×2 (06:18→15:46)
[2021-03-22] MEDS: BENZONATATE 100 MG CAPSULE PO PRN ×3 (06:27→21:41)
[2021-03-22 07:01] LABS: Hematocrit 27.9 VOL% (35.7-47.0); Hemoglobin 9.4 GM/DL (12.0-16.0); Immature Granulocytes % 1.1 %; Immature Granulocytes Absolute 0.04 #; Lymphocytes # 0.2 10*3/uL (1.4-4.0); Lymphocytes % 6.3 % (21.3-54.2); Mean Corpuscular HGB Conc 33.7 GM/DL (32-36); Mean Corpuscular Volume 88.3 FL (87-102); Mean Platelet Volume 10.4 FL (9.6-12.0); Monocytes % 2.8 % (1.7-12.7); Neutrophils % 89.8 % (38.7-73.9); Platelet Count 84 T/CUMM (130-400); Red Blood Count 3.16 MC/CUMM (3.8-5.5); Red Cell Distribution Width 12.9 % (9.3-17.3); White Blood Count 3.5 T/CUMM (4-12)
[2021-03-22] MEDS: BUDESONIDE 0.5 MG/2 ML NEB RESP TX SCH ×2 (07:20→19:11)
[2021-03-22 07:33] LABS: Albumin 2.7 G/DL (3.4-5.0); Bilirubin,Total 0.6 MG/DL (0.20-1.00); Calcium 8.9 MG/DL (8.5-10.1); Osmolality,Calculated 282.5 MOS/KG (273-304); Potassium 3.9 MMOL/L (3.5-5.1); Total Protein 5.7 G/DL (6.4-8.2)
[2021-03-22 08:23] LABS: Platelet Estimate Decreased
[2021-03-22 08:24] LABS: Anisocytosis Slight
[2021-03-22] MEDS: SERTRALINE 100 MG TABLET PO SCH (09:00)
[2021-03-22] MEDS: CETIRIZINE 10 MG TABLET PO SCH (09:00)
[2021-03-22] MEDS: CHOLECALCIFEROL 1,000 UNIT TABLET PO SCH (09:00)
[2021-03-22] MEDS: guaiFENesin/CODEINE 5 ML LIQUID PO PRN ×2 (09:00→15:52)
[2021-03-22] MEDS: GABAPENTIN 100 MG CAPSULE PO SCH ×2 (09:01→21:35)
[2021-03-22] MEDS: METOPROLOL TARTRATE 25 MG TABLET PO SCH ×2 (09:01→21:35)
[2021-03-22] MEDS: MONTELUKAST 10 MG TABLET PO SCH (09:01)
[2021-03-22] MEDS: ZINC GLUCONATE 50 MG TABLET PO SCH (09:01)
[2021-03-22] MEDS: FAMOTIDINE 20 MG TABLET PO SCH ×2 (09:02→21:35)
[2021-03-22] MEDS: POLYETHYLENE GLYCOL POWDER 17 GM PACK PO SCH ×2 (09:02→21:36)
[2021-03-22] MEDS: LACTULOSE 20 GM/30 ML UDCUP PO SCH (09:02)
[2021-03-22] MEDS: PANTOPRAZOLE 40 MG TABLET PO SCH ×2 (09:02→21:35)
[2021-03-22] MEDS: ASCORBIC ACID 500 MG TABLET PO SCH ×2 (09:02→21:35)
[2021-03-22] MEDS: PHENYLEPHRINE 0.25% SUPP RECTAL SCH ×3 (09:03→21:36)
[2021-03-22] MEDS: HYDROCORTISONE 2.5% RECTAL CREAM 30 GM TUBE TOP SCH ×2 (09:03→21:36)
[2021-03-22] MEDS: FLUTICASONE 50 MCG NASAL SPRAY 16 GM BOTTLE BOTH NARES SCH ×2 (09:05→21:36)
[2021-03-22] MEDS: cycloSPORINE OPH EMUL 1 VIAL BOTH EYES SCH ×2 (09:08→21:48)
[2021-03-22] MEDS: MELATONIN 3 MG TABLET PO PRN (21:42)
[2021-03-23] MEDS: guaiFENesin/CODEINE 5 ML LIQUID PO PRN ×2 (00:07→22:10)
[2021-03-23] MEDS: PIPERACILLIN/TAZOBACTAM 3,375 MG in SODIUM CHLORIDE 0.9% 100 ML IV SCH ×4 (00:07→23:11)
[2021-03-23] MEDS: ACETAMINOPHEN 325 MG TABLET PO PRN (00:07)
[2021-03-23] MEDS: ALBUTEROL/IPRATROPIUM 3 ML NEB RESP TX SCH ×4 (01:09→21:50)
[2021-03-23] MEDS: methylPREDNISolone SOD SUC 40 MG/1 ML VIAL IV SCH ×3 (02:25→18:24)
[2021-03-23 07:07] LABS: Albumin 2.6 G/DL (3.4-5.0); Bilirubin,Total 0.7 MG/DL (0.20-1.00); Osmolality,Calculated 276.8 MOS/KG (273-304); Potassium 3.5 MMOL/L (3.5-5.1); Total Protein 5.5 G/DL (6.4-8.2)
[2021-03-23] MEDS: BUDESONIDE 0.5 MG/2 ML NEB RESP TX SCH ×2 (07:38→21:50)
[2021-03-23] MEDS ORDERED: MEPERIDINE 50 MG/1 ML VIAL IM ONE (08:00)
[2021-03-23] MEDS ORDERED: PROMETHAZINE 25 MG/1 ML VIAL IM ONE (08:00)
[2021-03-23] MEDS ORDERED: LIDOCAINE 2% 20 ML VIAL RESP TX ONE (08:30)
[2021-03-23] MEDS ORDERED: MIDAZOLAM 2 MG/2 ML VIAL IV ONE (08:30)
[2021-03-23] MEDS ORDERED: LIDOCAINE 1% 20 ML VIAL MISC INJ ONE (08:30)
[2021-03-23] MEDS ORDERED: LIDOCAINE 2% VISCOUS 100 ML BOTTLE SWISH/SPIT ONE (08:30)
[2021-03-23] MEDS: FLUTICASONE 50 MCG NASAL SPRAY 16 GM BOTTLE BOTH NARES SCH ×2 (10:51→20:50)
[2021-03-23] MEDS: POLYETHYLENE GLYCOL POWDER 17 GM PACK PO SCH ×2 (10:51→20:49)
[2021-03-23] MEDS: METOPROLOL TARTRATE 25 MG TABLET PO SCH ×2 (10:51→20:49)
[2021-03-23] MEDS: LACTULOSE 20 GM/30 ML UDCUP PO SCH (10:51)
[2021-03-23] MEDS: GABAPENTIN 100 MG CAPSULE PO SCH ×2 (10:52→20:48)
[2021-03-23] MEDS: PANTOPRAZOLE 40 MG TABLET PO SCH ×2 (10:52→20:49)
[2021-03-23] MEDS: cycloSPORINE OPH EMUL 1 VIAL BOTH EYES SCH ×2 (10:52→20:50)
[2021-03-23] MEDS: FAMOTIDINE 20 MG TABLET PO SCH ×2 (10:52→20:48)
[2021-03-23] MEDS: ASCORBIC ACID 500 MG TABLET PO SCH ×2 (10:53→20:48)
[2021-03-23] MEDS: SERTRALINE 100 MG TABLET PO SCH (10:53)
[2021-03-23] MEDS: CHOLECALCIFEROL 1,000 UNIT TABLET PO SCH (10:53)
[2021-03-23] MEDS: MONTELUKAST 10 MG TABLET PO SCH (10:53)
[2021-03-23] MEDS: ZINC GLUCONATE 50 MG TABLET PO SCH (10:53)
[2021-03-23] MEDS: CETIRIZINE 10 MG TABLET PO SCH (10:54)
[2021-03-23] MEDS: PHENYLEPHRINE 0.25% SUPP RECTAL SCH ×3 (10:59→20:50)
[2021-03-23] MEDS: HYDROCORTISONE 2.5% RECTAL CREAM 30 GM TUBE TOP SCH ×2 (10:59→20:50)
[2021-03-23] MEDS: DORNASE ALFA 2.5 MG/2.5 ML VIAL RESP TX SCH ×2 (16:19→21:50)
[2021-03-23] MEDS: MELATONIN 3 MG TABLET PO PRN (20:48)
[2021-03-23] MEDS: BENZONATATE 100 MG CAPSULE PO PRN (20:48)
[2021-03-24] MEDS: methylPREDNISolone SOD SUC 40 MG/1 ML VIAL IV SCH ×2 (02:06→09:29)
[2021-03-24] MEDS: ALBUTEROL/IPRATROPIUM 3 ML NEB RESP TX SCH ×2 (02:10→06:49)
[2021-03-24] MEDS: PIPERACILLIN/TAZOBACTAM 3,375 MG in SODIUM CHLORIDE 0.9% 100 ML IV SCH (06:50)
[2021-03-24] MEDS: BUDESONIDE 0.5 MG/2 ML NEB RESP TX SCH (08:03)
[2021-03-24] MEDS: DORNASE ALFA 2.5 MG/2.5 ML VIAL RESP TX SCH (08:03)
[2021-03-24] MEDS: POLYETHYLENE GLYCOL POWDER 17 GM PACK PO SCH (08:34)
[2021-03-24] MEDS: LACTULOSE 20 GM/30 ML UDCUP PO SCH (08:34)
[2021-03-24] MEDS: PANTOPRAZOLE 40 MG TABLET PO SCH (08:35)
[2021-03-24] MEDS: METOPROLOL TARTRATE 25 MG TABLET PO SCH (08:35)
[2021-03-24] MEDS: ZINC GLUCONATE 50 MG TABLET PO SCH (08:35)
[2021-03-24] MEDS: CHOLECALCIFEROL 1,000 UNIT TABLET PO SCH (08:35)
[2021-03-24] MEDS: FAMOTIDINE 20 MG TABLET PO SCH (08:35)
[2021-03-24] MEDS: ASCORBIC ACID 500 MG TABLET PO SCH (08:36)
[2021-03-24] MEDS: CETIRIZINE 10 MG TABLET PO SCH (08:36)
[2021-03-24] MEDS: GABAPENTIN 100 MG CAPSULE PO SCH (08:36)
[2021-03-24] MEDS: MONTELUKAST 10 MG TABLET PO SCH (08:36)
[2021-03-24] MEDS: SERTRALINE 100 MG TABLET PO SCH (08:36)
[2021-03-24] MEDS: HYDROCORTISONE 2.5% RECTAL CREAM 30 GM TUBE TOP SCH (08:46)
[2021-03-24] MEDS: PHENYLEPHRINE 0.25% SUPP RECTAL SCH (08:46)
[2021-03-24] MEDS: cycloSPORINE OPH EMUL 1 VIAL BOTH EYES SCH (08:47)
[2021-03-24] MEDS: FLUTICASONE 50 MCG NASAL SPRAY 16 GM BOTTLE BOTH NARES SCH (08:47)
[2021-03-24 11:07] VITALS: BP 110/43
== END 2021-03-24 14:36 | DRG 177 ==
LOC: N.ED 10:40 → N.EDINP 13:05 → SUATTDRO 13:05 → N.3E 19:00
PROVIDERS: ADMIT Internal Medicine; ATTEND Internal Medicine

== ENCOUNTER 2021-03-24 17:33 | Inpatient (IN) ==
[2021-03-24] MEDS ORDERED: methylPREDNISolone SOD SUC 125 MG/2 ML VIAL IV STA (18:23)
[2021-03-24] MEDS ORDERED: cefTRIAXone 1,000 MG in SODIUM CHLORIDE 0.9% 100 ML IV STA (18:23)
[2021-03-24] MEDS ORDERED: ALBUTEROL NEB SOLN 5 MG/ML 20 ML/BOTTLE CONT NEB SCH (18:30)
[2021-03-24 18:53] LABS: ABG Base Excess 1.4 MMOL/L (-2.5-2.5); ABG HCO3 24.9 MMOL/L (20-26); ABG Oxygen Saturation 61.3 % (95-100); ABG PCO2 37.4 MM HG (35-48); ABG PH 7.439 (7.35-7.45); ABG TCO2 22.8 MMOL/L (23-27)
[2021-03-24 18:56] LABS: ABG PO2 35.5 MM HG (80-95)
[2021-03-24 19:38] LABS: Hemoglobin 11.3 GM/DL (12.0-16.0); Immature Granulocytes Absolute 0.08 #; Lymphocytes # 0.4 10*3/uL (1.4-4.0); Lymphocytes % 5.3 % (21.3-54.2); Mean Corpuscular HGB Conc 34.2 GM/DL (32-36); Mean Corpuscular Volume 86.4 FL (87-102); Mean Platelet Volume 10.4 FL (9.6-12.0); Monocytes % 4.2 % (1.7-12.7); Neutrophils % 89.5 % (38.7-73.9); Platelet Count 120 T/CUMM (130-400); Red Blood Count 3.82 MC/CUMM (3.8-5.5); White Blood Count 8.1 T/CUMM (4-12)
[2021-03-24] MEDS ORDERED: PIPERACILLIN/TAZOBACTAM 3,375 MG in SODIUM CHLORIDE 0.9% 100 ML IV STA (19:53)
[2021-03-24 19:58] LABS: Albumin 3.1 G/DL (3.4-5.0); Bilirubin,Total 0.8 MG/DL (0.20-1.00); Calcium 8.7 MG/DL (8.5-10.1); INR 1.1; Osmolality,Calculated 283.3 MOS/KG (273-304); PT Patient Result 12.4 SECS (10.5-12.0); Potassium 3.1 MMOL/L (3.5-5.1); Total Protein 6.1 G/DL (6.4-8.2)
[2021-03-24] MEDS ORDERED: ONDANSETRON 4 MG/2 ML VIAL IV PRN (20:40)
[2021-03-24] MEDS ORDERED: MAGNESIUM SULF RIDER 4 GM/100 ML PREMIX IV PRN (20:40)
[2021-03-24] MEDS ORDERED: GLUCAGON 1 MG VIAL IM PRN (20:40)
[2021-03-24] MEDS ORDERED: DEXTROSE 10% 250 ML BAG IV PRN (20:40)
[2021-03-24] MEDS ORDERED: LEVOFLOXACIN INJ 750 MG/150 ML PREMIX IV SCH (21:00)
[2021-03-25] MEDS: guaiFENesin/CODEINE 5 ML LIQUID PO PRN ×2 (00:11→21:31)
[2021-03-25] MEDS: ENOXAPARIN 40 MG/0.4 ML SYRINGE SUBCUT SCH ×2 (00:12→21:23)
[2021-03-25] MEDS: SODIUM CHLOR 0.45% KCL 20 MEQ 20 MEQ/1,000 ML BAG IV SCH ×3 (01:47→21:33)
[2021-03-25] MEDS: methylPREDNISolone SOD SUC 40 MG/1 ML VIAL IV SCH ×3 (01:47→16:40)
[2021-03-25] MEDS: VANCOMYCIN INJ 1,250 MG in SODIUM CHLORIDE 0.9% 250 ML IV SCH ×2 (01:47→20:15)
[2021-03-25] MEDS: PIPERACILLIN/TAZOBACTAM 3,375 MG in SODIUM CHLORIDE 0.9% 100 ML IV SCH ×3 (03:51→22:00)
[2021-03-25 04:04] LABS: ABG Base Excess 0.9 MMOL/L (-2.5-2.5); ABG HCO3 24.7 MMOL/L (20-26); ABG PCO2 35.8 MM HG (35-48); ABG PH 7.456 (7.35-7.45); ABG PO2 71.2 MM HG (80-95); ABG TCO2 25.8 MMOL/L (23-27)
[2021-03-25 06:48] LABS: Hematocrit 25.9 VOL% (35.7-47.0); Hemoglobin 8.9 GM/DL (12.0-16.0); Immature Granulocytes Absolute 0.03 #; Lymphocytes # 0.2 10*3/uL (1.4-4.0); Lymphocytes % 7.1 % (21.3-54.2); Mean Corpuscular HGB Conc 34.4 GM/DL (32-36); Mean Corpuscular Volume 85.5 FL (87-102); Mean Platelet Volume 10.4 FL (9.6-12.0); Monocytes % 2.7 % (1.7-12.7); Neutrophils % 89.2 % (38.7-73.9); Platelet Count 90 T/CUMM (130-400); Red Blood Count 3.03 MC/CUMM (3.8-5.5)
[2021-03-25 07:09] LABS: Albumin 2.3 G/DL (3.4-5.0); Bilirubin,Total 0.9 MG/DL (0.20-1.00); Calcium 8.4 MG/DL (8.5-10.1); Osmolality,Calculated 285.3 MOS/KG (273-304); Potassium 3.1 MMOL/L (3.5-5.1); Total Protein 5.4 G/DL (6.4-8.2)
[2021-03-25 07:17] LABS: Hypochromia 1+; Microcytosis 1+; Ovalocytes Slight
[2021-03-25 07:19] LABS: Platelet Estimate Decreased
[2021-03-25 08:33] LABS: Hematocrit 25.1 VOL% (35.7-47.0); Hemoglobin 8.6 GM/DL (12.0-16.0); Immature Granulocytes % 0.7 %; Immature Granulocytes Absolute 0.02 #; Lymphocytes # 0.3 10*3/uL (1.4-4.0); Lymphocytes % 8.5 % (21.3-54.2); Mean Corpuscular HGB Conc 34.3 GM/DL (32-36); Mean Platelet Volume 9.9 FL (9.6-12.0); Monocytes % 3.1 % (1.7-12.7); Neutrophils % 87.7 % (38.7-73.9); Platelet Count 100 T/CUMM (130-400); Red Blood Count 2.92 MC/CUMM (3.8-5.5); Red Cell Distribution Width 12.9 % (9.3-17.3); White Blood Count 2.9 T/CUMM (4-12)
[2021-03-25] MEDS ORDERED: MORPHINE 4 MG/1 ML VIAL ONE (09:59)
[2021-03-25] MEDS ORDERED: MORPHINE 4 MG/1 ML VIAL IV STA (10:05)
[2021-03-25] MEDS: PANTOPRAZOLE 40 MG TABLET PO SCH (10:08)
[2021-03-25] MEDS: MORPHINE 4 MG/1 ML VIAL IV PRN ×3 (10:33→17:13)
[2021-03-25] MEDS: ASCORBIC ACID 500 MG TABLET PO SCH ×2 (10:34→21:16)
[2021-03-25] MEDS: METOPROLOL TARTRATE 25 MG TABLET PO SCH ×2 (10:34→21:16)
[2021-03-25] MEDS: BUDESONIDE/FORMOTEROL 160-4.5 INHALER 6 GM INH SCH ×2 (13:21→21:22)
[2021-03-25] MEDS ORDERED: FUROSEMIDE 40 MG/4 ML VIAL IV ONE (16:57)
[2021-03-25] MEDS: SIMVASTATIN 20 MG TABLET PO SCH (21:16)
[2021-03-25] MEDS: FLUTICASONE 50 MCG NASAL SPRAY 16 GM BOTTLE BOTH NARES SCH (21:19)
[2021-03-25] MEDS: cycloSPORINE OPH EMUL 1 VIAL BOTH EYES SCH (21:23)
[2021-03-25] MEDS ORDERED: NITROGLYCERIN SL 0.4 MG TABLET SL ONE ×2 (22:45)
[2021-03-26] MEDS: methylPREDNISolone SOD SUC 40 MG/1 ML VIAL IV SCH ×3 (01:36→17:44)
[2021-03-26] MEDS: PIPERACILLIN/TAZOBACTAM 3,375 MG in SODIUM CHLORIDE 0.9% 100 ML IV SCH (04:36)
[2021-03-26 05:01] LABS: ABG Base Excess 4.8 MMOL/L (-2.5-2.5); ABG HCO3 28.7 MMOL/L (20-26); ABG Oxygen Saturation 94.9 % (95-100); ABG PCO2 39.8 MM HG (35-48); ABG PH 7.476 (7.35-7.45); ABG PO2 79.6 MM HG (80-95); ABG TCO2 29.9 MMOL/L (23-27); Allen Test Positive; Pt O2 Delivery Device Other
[2021-03-26 07:05] LABS: Albumin 2.3 G/DL (3.4-5.0); Bilirubin,Total 0.8 MG/DL (0.20-1.00); Calcium 8.7 MG/DL (8.5-10.1); Total Protein 5.6 G/DL (6.4-8.2)
[2021-03-26 07:17] LABS: Basophils % 0.2 % (0.0-0.8); Hematocrit 29.1 VOL% (35.7-47.0); Immature Granulocytes % 1.4 %; Immature Granulocytes Absolute 0.06 #; Lymphocytes # 0.2 10*3/uL (1.4-4.0); Lymphocytes % 5.5 % (21.3-54.2); Mean Corpuscular HGB Conc 34.4 GM/DL (32-36); Mean Corpuscular Volume 85.3 FL (87-102); Mean Platelet Volume 10.5 FL (9.6-12.0); Monocytes % 5.3 % (1.7-12.7); Neutrophils % 87.6 % (38.7-73.9); Platelet Count 94 T/CUMM (130-400); Red Blood Count 3.41 MC/CUMM (3.8-5.5); White Blood Count 4.2 T/CUMM (4-12)
[2021-03-26 07:30] LABS: Hypochromia 1+; Microcytosis 1+; Platelet Estimate Decreased
[2021-03-26] MEDS: guaiFENesin/CODEINE 5 ML LIQUID PO PRN ×2 (08:40→21:23)
[2021-03-26] MEDS: cycloSPORINE OPH EMUL 1 VIAL BOTH EYES SCH ×2 (10:20→21:16)
[2021-03-26] MEDS: FLUTICASONE 50 MCG NASAL SPRAY 16 GM BOTTLE BOTH NARES SCH ×2 (10:20→21:13)
[2021-03-26] MEDS: ASCORBIC ACID 500 MG TABLET PO SCH ×2 (10:21→21:12)
[2021-03-26] MEDS: cefTRIAXone 1,000 MG in SODIUM CHLORIDE 0.9% 100 ML IV SCH (10:21)
[2021-03-26] MEDS: POTASSIUM CHLORIDE 20 MEQ TABLET PO SCH ×4 (10:22→21:11)
[2021-03-26] MEDS: BENZONATATE 100 MG CAPSULE PO PRN (10:22)
[2021-03-26] MEDS: METOPROLOL TARTRATE 25 MG TABLET PO SCH ×2 (10:22→21:12)
[2021-03-26] MEDS: lisinopriL 20 MG TABLET PO SCH (10:22)
[2021-03-26] MEDS: PANTOPRAZOLE 40 MG TABLET PO SCH (10:22)
[2021-03-26] MEDS: BUDESONIDE/FORMOTEROL 160-4.5 INHALER 6 GM INH SCH ×2 (10:23→21:13)
[2021-03-26] MEDS: MORPHINE 4 MG/1 ML VIAL IV PRN ×2 (10:40→17:43)
[2021-03-26] MEDS: SODIUM CHLOR 0.45% KCL 20 MEQ 20 MEQ/1,000 ML BAG IV SCH (19:46)
[2021-03-26] MEDS: SIMVASTATIN 20 MG TABLET PO SCH (21:12)
[2021-03-26] MEDS: ENOXAPARIN 40 MG/0.4 ML SYRINGE SUBCUT SCH (21:13)
[2021-03-27] MEDS: MORPHINE 4 MG/1 ML VIAL IV PRN ×4 (01:00→18:06)
[2021-03-27] MEDS: methylPREDNISolone SOD SUC 40 MG/1 ML VIAL IV SCH ×3 (01:25→18:07)
[2021-03-27 03:43] LABS: Hematocrit 26.9 VOL% (35.7-47.0); Hemoglobin 9.1 GM/DL (12.0-16.0); Immature Granulocytes % 0.6 %; Immature Granulocytes Absolute 0.03 #; Lymphocytes # 0.2 10*3/uL (1.4-4.0); Lymphocytes % 3.8 % (21.3-54.2); Mean Corpuscular HGB Conc 33.8 GM/DL (32-36); Mean Corpuscular Volume 87.3 FL (87-102); Monocytes % 3.6 % (1.7-12.7); Platelet Count 118 T/CUMM (130-400); Red Blood Count 3.08 MC/CUMM (3.8-5.5); White Blood Count 5.2 T/CUMM (4-12)
[2021-03-27 04:00] LABS: Calcium 8.7 MG/DL (8.5-10.1); Osmolality,Calculated 280.7 MOS/KG (273-304); Potassium 3.6 MMOL/L (3.5-5.1)
[2021-03-27 04:12] LABS: Hypochromia 1+; Lymphocytes 3 % (20-55); Microcytosis 1+; Platelet Estimate Decreased; Segmented Neutrophils 94 % (50-85); Total Cells Counted 100
[2021-03-27] MEDS ORDERED: MEPERIDINE 50 MG/1 ML VIAL IM ONE (07:00)
[2021-03-27] MEDS ORDERED: PROMETHAZINE 25 MG/1 ML VIAL IM ONE (07:00)
[2021-03-27] MEDS ORDERED: LIDOCAINE 2% VISCOUS 100 ML BOTTLE SWISH/SPIT ONE (07:30)
[2021-03-27] MEDS ORDERED: LIDOCAINE 2% 20 ML VIAL RESP TX ONE (07:30)
[2021-03-27] MEDS ORDERED: LIDOCAINE 1% 20 ML VIAL MISC INJ ONE (07:30)
[2021-03-27] MEDS ORDERED: MIDAZOLAM 2 MG/2 ML VIAL IV ONE (07:30)
[2021-03-27] MEDS: cycloSPORINE OPH EMUL 1 VIAL BOTH EYES SCH ×2 (11:08→22:10)
[2021-03-27] MEDS: FLUTICASONE 50 MCG NASAL SPRAY 16 GM BOTTLE BOTH NARES SCH ×2 (11:08→22:09)
[2021-03-27] MEDS: BUDESONIDE/FORMOTEROL 160-4.5 INHALER 6 GM INH SCH ×2 (11:09→22:10)
[2021-03-27] MEDS: METOPROLOL TARTRATE 25 MG TABLET PO SCH ×2 (12:01→22:09)
[2021-03-27] MEDS: lisinopriL 20 MG TABLET PO SCH (12:02)
[2021-03-27] MEDS: ASCORBIC ACID 500 MG TABLET PO SCH ×2 (12:02→22:10)
[2021-03-27] MEDS: PANTOPRAZOLE 40 MG TABLET PO SCH (12:02)
[2021-03-27] MEDS: cefTRIAXone 1,000 MG in SODIUM CHLORIDE 0.9% 100 ML IV SCH (12:02)
[2021-03-27] MEDS: BENZONATATE 100 MG CAPSULE PO PRN (14:07)
[2021-03-27] MEDS: ENOXAPARIN 40 MG/0.4 ML SYRINGE SUBCUT SCH (22:09)
[2021-03-27] MEDS: SIMVASTATIN 20 MG TABLET PO SCH (22:10)
[2021-03-27] MEDS: guaiFENesin/CODEINE 5 ML LIQUID PO PRN (22:10)
[2021-03-28] MEDS: MORPHINE 4 MG/1 ML VIAL IV PRN ×2 (01:07→07:50)
[2021-03-28] MEDS: methylPREDNISolone SOD SUC 40 MG/1 ML VIAL IV SCH ×3 (01:27→17:00)
[2021-03-28 01:59] LABS: Bilirubin,Urine Negative (Negative); Blood, Urine Negative (Negative); Glucose,Urine (UA) 50 mg/dL (Negative); Ketones,Urine Negative (Negative); Mucus,Urine Occasional /LPF (Occasional); Nitrite,Urine Negative (Negative); Protein,Urine 30 MG/DL; RBC,Urine 1 /HPF (0-4); Squamous Epithelial Cell,Urine Occasional /HPF (0-10); Urine Appearance CLEAR (Clear); Urine Color Yellow (Yellow); Urine Specific Gravity 1.014 (1.001-1.035); Urine Urobilinogen < 2.0 EU/DL (<2.0)
[2021-03-28] MEDS: SODIUM CHLOR 0.45% KCL 20 MEQ 20 MEQ/1,000 ML BAG IV SCH ×2 (03:34→04:58)
[2021-03-28 03:36] LABS: Hematocrit 27.5 VOL% (35.7-47.0); Hemoglobin 9.4 GM/DL (12.0-16.0); Immature Granulocytes % 0.8 %; Immature Granulocytes Absolute 0.05 #; Lymphocytes # 0.2 10*3/uL (1.4-4.0); Lymphocytes % 3.7 % (21.3-54.2); Mean Corpuscular HGB Conc 34.2 GM/DL (32-36); Mean Corpuscular Volume 85.9 FL (87-102); Mean Platelet Volume 10.2 FL (9.6-12.0); Monocytes % 2.3 % (1.7-12.7); Neutrophils % 93.2 % (38.7-73.9); Platelet Count 116 T/CUMM (130-400); Red Cell Distribution Width 12.8 % (9.3-17.3); White Blood Count 6.5 T/CUMM (4-12)
[2021-03-28 04:02] LABS: Calcium 9.1 MG/DL (8.5-10.1); Potassium 3.8 MMOL/L (3.5-5.1)
[2021-03-28 04:10] LABS: Platelet Estimate Normal; Segmented Neutrophils 100 % (50-85)
[2021-03-28 04:11] LABS: Hypochromia Slight; Total Cells Counted 100
[2021-03-28] MEDS: MAGNESIUM SULF RIDER 2 GM/50 ML PREMIX IV PRN (04:58)
[2021-03-28] MEDS: guaiFENesin/CODEINE 5 ML LIQUID PO PRN (05:34)
[2021-03-28 05:57] LABS: ABG Base Excess 2.9 MMOL/L (-2.5-2.5); ABG HCO3 26.9 MMOL/L (20-26); ABG Oxygen Saturation 91.5 % (95-100); ABG PCO2 42.2 MM HG (35-48); ABG PH 7.424 (7.35-7.45); ABG PO2 62.6 MM HG (80-95)
[2021-03-28] MEDS: BENZONATATE 100 MG CAPSULE PO PRN (07:50)
[2021-03-28] MEDS: BUDESONIDE/FORMOTEROL 160-4.5 INHALER 6 GM INH SCH ×2 (09:00→21:11)
[2021-03-28] MEDS ORDERED: SUCCINYLCHOLINE 200 MG/10 ML VIAL ONE (09:39)
[2021-03-28] MEDS ORDERED: ETOMIDATE 20 MG/10 ML VIAL IV ONE ×2 (09:39→09:50)
[2021-03-28] MEDS ORDERED: LACTATED RINGERS 1,000 ML IV ONE (09:45)
[2021-03-28] MEDS ORDERED: SUCCINYLCHOLINE 200 MG/10 ML VIAL IV ONE (09:50)
[2021-03-28] MEDS: ROCURONIUM 500 MG in SODIUM CHLORIDE 0.9% 500 ML IV PRN ×2 (11:15→21:25)
[2021-03-28] MEDS ORDERED: MAGNESIUM SULF RIDER 4 GM/100 ML PREMIX IV ONE (11:42)
[2021-03-28] MEDS: FLUTICASONE 50 MCG NASAL SPRAY 16 GM BOTTLE BOTH NARES SCH ×2 (11:50→21:11)
[2021-03-28] MEDS: ASCORBIC ACID 500 MG TABLET PO SCH ×2 (11:50→21:15)
[2021-03-28] MEDS: lisinopriL 20 MG TABLET PO SCH (11:50)
[2021-03-28] MEDS: METOPROLOL TARTRATE 25 MG TABLET PO SCH (11:50)
[2021-03-28] MEDS: cefTRIAXone 1,000 MG in SODIUM CHLORIDE 0.9% 100 ML IV SCH (11:50)
[2021-03-28] MEDS: cycloSPORINE OPH EMUL 1 VIAL BOTH EYES SCH ×2 (11:50→21:15)
[2021-03-28] MEDS: LACTULOSE 20 GM/30 ML UDCUP PO SCH (11:50)
[2021-03-28] MEDS: PANTOPRAZOLE 40 MG TABLET PO SCH (11:50)
[2021-03-28 11:54] LABS: ABG Base Excess 2.3 MMOL/L (-2.5-2.5); ABG HCO3 27.4 MMOL/L (20-26); ABG Oxygen Saturation 98.3 % (95-100); ABG PCO2 44.7 MM HG (35-48); ABG PH 7.405 (7.35-7.45); ABG PO2 156.8 MM HG (80-95); ABG TCO2 28.8 MMOL/L (23-27); Allen Test Positive; Pt O2 Delivery Device Ventilator
[2021-03-28] MEDS: LACTATED RINGERS 1,000 ML IV SCH (18:25)
[2021-03-28] MEDS: SIMVASTATIN 20 MG TABLET PO SCH (21:15)
[2021-03-28] MEDS: fentaNYL INJ 1,250 MCG in SODIUM CHLORIDE 0.9% 225 ML IV PRN (22:00)
[2021-03-28] MEDS: MIDAZOLAM 100 MG in SODIUM CHLORIDE 0.9% 80 ML IV PRN (22:01)
[2021-03-29] MEDS: methylPREDNISolone SOD SUC 40 MG/1 ML VIAL IV SCH ×3 (01:25→16:55)
[2021-03-29] MEDS: fentaNYL INJ 1,250 MCG in SODIUM CHLORIDE 0.9% 225 ML IV PRN ×5 (03:13→22:50)
[2021-03-29 04:03] LABS: ABG HCO3 27.1 MMOL/L (20-26); ABG Oxygen Saturation 99.6 % (95-100); ABG PCO2 46.7 MM HG (35-48); ABG PH 7.391 (7.35-7.45); ABG TCO2 26.5 MMOL/L (23-27)
[2021-03-29 04:26] LABS: Hematocrit 22.3 VOL% (35.7-47.0); Hemoglobin 7.6 GM/DL (12.0-16.0); Immature Granulocytes % 1.2 %; Immature Granulocytes Absolute 0.03 #; Lymphocytes # 0.1 10*3/uL (1.4-4.0); Lymphocytes % 5.6 % (21.3-54.2); Mean Corpuscular HGB Conc 34.1 GM/DL (32-36); Mean Corpuscular Volume 86.8 FL (87-102); Mean Platelet Volume 10.2 FL (9.6-12.0); Monocytes % 3.2 % (1.7-12.7); Platelet Count 96 T/CUMM (130-400); Red Blood Count 2.57 MC/CUMM (3.8-5.5); Red Cell Distribution Width 12.8 % (9.3-17.3); White Blood Count 2.5 T/CUMM (4-12)
[2021-03-29 04:34] LABS: Calcium 7.8 MG/DL (8.5-10.1); Osmolality,Calculated 281.4 MOS/KG (273-304); Potassium 3.8 MMOL/L (3.5-5.1)
[2021-03-29] MEDS: LACTATED RINGERS 1,000 ML IV SCH ×2 (04:52→15:30)
[2021-03-29 05:10] LABS: Band Neutrophils 2 % (0-10); Eosinophils 1 % (0-10); Lymphocytes 8 % (20-55); Microcytosis 1+; Segmented Neutrophils 82 % (50-85); Total Cells Counted 100
[2021-03-29 05:11] LABS: Ovalocytes Slight; Platelet Estimate Decreased; Tear Drop Cells Slight
[2021-03-29] MEDS: ROCURONIUM 500 MG in SODIUM CHLORIDE 0.9% 500 ML IV PRN (08:55)
[2021-03-29] MEDS: BUDESONIDE/FORMOTEROL 160-4.5 INHALER 6 GM INH SCH ×2 (09:00→20:51)
[2021-03-29] MEDS: MIDAZOLAM 100 MG in SODIUM CHLORIDE 0.9% 80 ML IV PRN ×2 (09:20→20:40)
[2021-03-29] MEDS: PANTOPRAZOLE 40 MG VIAL IV SCH (09:35)
[2021-03-29] MEDS: cycloSPORINE OPH EMUL 1 VIAL BOTH EYES SCH ×2 (09:40→20:51)
[2021-03-29] MEDS: LACTULOSE 20 GM/30 ML UDCUP PO SCH (09:40)
[2021-03-29] MEDS: FLUTICASONE 50 MCG NASAL SPRAY 16 GM BOTTLE BOTH NARES SCH ×2 (09:40→20:51)
[2021-03-29] MEDS: cefTRIAXone 1,000 MG in SODIUM CHLORIDE 0.9% 100 ML IV SCH (09:45)
[2021-03-29] MEDS: ASCORBIC ACID 500 MG TABLET PO SCH ×2 (09:45→20:51)
[2021-03-29 10:21] LABS: ABG Base Excess 2.6 MMOL/L (-2.5-2.5); ABG HCO3 26.7 MMOL/L (20-26); ABG Oxygen Saturation 98.7 % (95-100); ABG PCO2 44.1 MM HG (35-48); ABG PH 7.405 (7.35-7.45); ABG TCO2 25.7 MMOL/L (23-27); Allen Test Positive; Pt O2 Delivery Device Ventilator
[2021-03-29] MEDS: FONDAPARINUX 2.5 MG/0.5 ML SYRINGE SUBCUT SCH (11:02)
[2021-03-29] MEDS: SIMVASTATIN 20 MG TABLET PO SCH (20:51)
[2021-03-30] MEDS: LACTATED RINGERS 1,000 ML IV SCH ×4 (00:30→15:17)
[2021-03-30] MEDS: methylPREDNISolone SOD SUC 40 MG/1 ML VIAL IV SCH ×3 (01:20→18:00)
[2021-03-30 02:37] LABS: ABG Base Excess 2.2 MMOL/L (-2.5-2.5); ABG HCO3 26.4 MMOL/L (20-26); ABG PH 7.372 (7.35-7.45); ABG PO2 84.2 MM HG (80-95)
[2021-03-30] MEDS: fentaNYL INJ 1,250 MCG in SODIUM CHLORIDE 0.9% 225 ML IV PRN ×4 (03:57→18:35)
[2021-03-30 04:54] LABS: Eosinophils % 0.3 % (0.00-10.9); Hemoglobin 8.1 GM/DL (12.0-16.0); Immature Granulocytes % 0.5 %; Immature Granulocytes Absolute 0.02 #; Lymphocytes # 0.1 10*3/uL (1.4-4.0); Lymphocytes % 3.7 % (21.3-54.2); Mean Corpuscular HGB Conc 33.8 GM/DL (32-36); Mean Corpuscular Volume 89.2 FL (87-102); Mean Platelet Volume 9.9 FL (9.6-12.0); Monocytes % 3.4 % (1.7-12.7); Neutrophils % 92.1 % (38.7-73.9); Platelet Count 102 T/CUMM (130-400); Red Blood Count 2.69 MC/CUMM (3.8-5.5); Red Cell Distribution Width 13.1 % (9.3-17.3); White Blood Count 3.8 T/CUMM (4-12)
[2021-03-30 05:20] LABS: Calcium 7.9 MG/DL (8.5-10.1); Osmolality,Calculated 283.4 MOS/KG (273-304); Potassium 4.2 MMOL/L (3.5-5.1)
[2021-03-30 06:16] LABS: Hypochromia 1+; Lymphocytes 2 % (20-55); Microcytosis 1+; Platelet Estimate Decreased; Segmented Neutrophils 96 % (50-85); Total Cells Counted 100
[2021-03-30] MEDS: MIDAZOLAM 100 MG in SODIUM CHLORIDE 0.9% 80 ML IV PRN ×2 (08:33→19:51)
[2021-03-30] MEDS: LACTULOSE 20 GM/30 ML UDCUP PO SCH (09:26)
[2021-03-30] MEDS: ASCORBIC ACID 500 MG TABLET PO SCH ×2 (09:27→21:05)
[2021-03-30] MEDS: PANTOPRAZOLE 40 MG VIAL IV SCH (09:32)
[2021-03-30] MEDS: FONDAPARINUX 2.5 MG/0.5 ML SYRINGE SUBCUT SCH (09:33)
[2021-03-30] MEDS: ARFORMOTEROL 15 MCG/2 ML NEB RESP TX SCH ×2 (09:34→20:17)
[2021-03-30] MEDS: BUDESONIDE 0.5 MG/2 ML NEB RESP TX SCH ×2 (09:34→20:19)
[2021-03-30] MEDS: FLUTICASONE 50 MCG NASAL SPRAY 16 GM BOTTLE BOTH NARES SCH ×2 (09:34→21:05)
[2021-03-30] MEDS: cycloSPORINE OPH EMUL 1 VIAL BOTH EYES SCH ×2 (09:46→21:06)
[2021-03-30] MEDS: cefTRIAXone 1,000 MG in SODIUM CHLORIDE 0.9% 100 ML IV SCH (10:52)
[2021-03-30] MEDS: INSULIN REGULAR 100 UNIT/ML SUBCUT SCH ×2 (12:19→17:57)
[2021-03-30] MEDS: lisinopriL 20 MG TABLET PO SCH (15:07)
[2021-03-30] MEDS: SIMVASTATIN 20 MG TABLET PO SCH (21:06)
[2021-03-30] MEDS: hydrALAZINE 20 MG/1 ML VIAL IV PRN (22:30)
[2021-03-31] MEDS: fentaNYL INJ 1,250 MCG in SODIUM CHLORIDE 0.9% 225 ML IV PRN ×7 (00:09→22:17)
[2021-03-31] MEDS: INSULIN REGULAR 100 UNIT/ML SUBCUT SCH ×4 (00:13→17:51)
[2021-03-31] MEDS: methylPREDNISolone SOD SUC 40 MG/1 ML VIAL IV SCH ×3 (00:14→16:53)
[2021-03-31] MEDS: LACTATED RINGERS 1,000 ML IV SCH ×2 (03:19→10:36)
[2021-03-31 04:09] LABS: Hemoglobin 7.9 GM/DL (12.0-16.0); Immature Granulocytes Absolute 0.03 #; Lymphocytes # 0.1 10*3/uL (1.4-4.0); Lymphocytes % 3.1 % (21.3-54.2); Mean Corpuscular HGB Conc 32.9 GM/DL (32-36); Mean Corpuscular Volume 89.9 FL (87-102); Monocytes % 3.5 % (1.7-12.7); Neutrophils % 92.4 % (38.7-73.9); Platelet Count 111 T/CUMM (130-400); Red Blood Count 2.67 MC/CUMM (3.8-5.5); Red Cell Distribution Width 12.8 % (9.3-17.3); White Blood Count 2.9 T/CUMM (4-12)
[2021-03-31 04:27] LABS: Hypochromia 1+; Lymphocytes 4 % (20-55); Microcytosis 1+; Platelet Estimate Decreased; Segmented Neutrophils 91 % (50-85); Total Cells Counted 100
[2021-03-31 04:28] LABS: Alanine Aminotransferase 30 U/L (13-56); Albumin 1.8 G/DL (3.4-5.0); Alkaline Phosphatase 64 U/L (45-117); Aspartate Amino Transferase 15 U/L (0-37); Bilirubin,Total < 0.39 MG/DL (0.20-1.00); Blood Urea Nitrogen 19 MG/DL (7-18); Calcium 8.5 MG/DL (8.5-10.1); Carbon Dioxide 28 MMOL/L (21-32); Estimated Glom Filtration Rate 97 ML/MIN; Glucose 162 MG/DL (74-106); Osmolality,Calculated 275.1 MOS/KG (273-304); Potassium 4.6 MMOL/L (3.5-5.1); Sodium 135 MMOL/L (136-145); Total Protein 4.5 G/DL (6.4-8.2)
[2021-03-31 04:54] LABS: ABG Base Excess 2.2 MMOL/L (-2.5-2.5); ABG HCO3 27.3 MMOL/L (20-26); ABG PCO2 44.8 MM HG (35-48); ABG PH 7.402 (7.35-7.45); ABG PO2 99.8 MM HG (80-95); ABG TCO2 28.6 MMOL/L (23-27); Allen Test Positive; Pt O2 Delivery Device Ventilator
[2021-03-31] MEDS: MIDAZOLAM 100 MG in SODIUM CHLORIDE 0.9% 80 ML IV PRN ×2 (07:36→18:29)
[2021-03-31] MEDS: BUDESONIDE 0.5 MG/2 ML NEB RESP TX SCH ×2 (07:55→19:31)
[2021-03-31] MEDS: ARFORMOTEROL 15 MCG/2 ML NEB RESP TX SCH ×2 (07:55→19:31)
[2021-03-31] MEDS: cefTRIAXone 1,000 MG in SODIUM CHLORIDE 0.9% 100 ML IV SCH (09:34)
[2021-03-31] MEDS: PANTOPRAZOLE 40 MG VIAL IV SCH (09:39)
[2021-03-31] MEDS: FONDAPARINUX 2.5 MG/0.5 ML SYRINGE SUBCUT SCH (09:40)
[2021-03-31] MEDS: LACTULOSE 20 GM/30 ML UDCUP PO SCH (09:40)
[2021-03-31] MEDS: ASCORBIC ACID 500 MG TABLET PO SCH ×2 (09:41→20:17)
[2021-03-31] MEDS: FLUTICASONE 50 MCG NASAL SPRAY 16 GM BOTTLE BOTH NARES SCH ×2 (09:41→20:17)
[2021-03-31] MEDS: lisinopriL 20 MG TABLET PO SCH (09:41)
[2021-03-31] MEDS: cycloSPORINE OPH EMUL 1 VIAL BOTH EYES SCH ×2 (09:42→20:16)
[2021-03-31] MEDS: METOPROLOL TARTRATE 25 MG TABLET PO SCH (10:34)
[2021-03-31] MEDS: NIFEdipine 10 MG CAPSULE PO SCH ×3 (10:34→20:17)
[2021-03-31] MEDS: SIMVASTATIN 20 MG TABLET PO SCH (20:17)
[2021-04-01] MEDS: INSULIN REGULAR 100 UNIT/ML SUBCUT SCH ×4 (00:53→19:34)
[2021-04-01] MEDS: methylPREDNISolone SOD SUC 40 MG/1 ML VIAL IV SCH ×3 (00:53→16:19)
[2021-04-01] MEDS: fentaNYL INJ 1,250 MCG in SODIUM CHLORIDE 0.9% 225 ML IV PRN ×5 (01:10→19:32)
[2021-04-01 04:30] LABS: ABG Base Excess 0.8 MMOL/L (-2.5-2.5); ABG HCO3 27.1 MMOL/L (20-26); ABG Oxygen Saturation 95.6 % (95-100); ABG PCO2 52.7 MM HG (35-48); ABG PH 7.329 (7.35-7.45); ABG PO2 87.2 MM HG (80-95); ABG TCO2 28.7 MMOL/L (23-27); Allen Test Positive; Pt O2 Delivery Device Ventilator
[2021-04-01 04:35] LABS: Eosinophils % 0.3 % (0.00-10.9); Hematocrit 23.9 VOL% (35.7-47.0); Hemoglobin 7.9 GM/DL (12.0-16.0); Immature Granulocytes % 1.2 %; Immature Granulocytes Absolute 0.04 #; Lymphocytes # 0.1 10*3/uL (1.4-4.0); Lymphocytes % 3.3 % (21.3-54.2); Mean Corpuscular HGB Conc 33.1 GM/DL (32-36); Mean Corpuscular Volume 89.8 FL (87-102); Mean Platelet Volume 10.7 FL (9.6-12.0); Monocytes % 3.6 % (1.7-12.7); Neutrophils % 91.6 % (38.7-73.9); Platelet Count 111 T/CUMM (130-400); Red Blood Count 2.66 MC/CUMM (3.8-5.5); Red Cell Distribution Width 12.8 % (9.3-17.3); White Blood Count 3.4 T/CUMM (4-12)
[2021-04-01 04:40] LABS: Calcium 8.2 MG/DL (8.5-10.1); Potassium 4.8 MMOL/L (3.5-5.1)
[2021-04-01 05:03] LABS: Band Neutrophils 3 % (0-10); Lymphocytes 1 % (20-55); Platelet Estimate Decreased; Segmented Neutrophils 94 % (50-85); Total Cells Counted 100
[2021-04-01 05:04] LABS: Hypochromia 1+; Microcytosis 1+
[2021-04-01] MEDS: MIDAZOLAM 100 MG in SODIUM CHLORIDE 0.9% 80 ML IV PRN ×3 (06:30→23:20)
[2021-04-01] MEDS: ARFORMOTEROL 15 MCG/2 ML NEB RESP TX SCH ×2 (07:59→20:49)
[2021-04-01] MEDS: BUDESONIDE 0.5 MG/2 ML NEB RESP TX SCH ×2 (07:59→20:49)
[2021-04-01] MEDS: FONDAPARINUX 2.5 MG/0.5 ML SYRINGE SUBCUT SCH (09:15)
[2021-04-01] MEDS: LACTULOSE 20 GM/30 ML UDCUP PO SCH (09:15)
[2021-04-01] MEDS: PANTOPRAZOLE 40 MG VIAL IV SCH (09:16)
[2021-04-01] MEDS: NIFEdipine 10 MG CAPSULE PO SCH ×3 (09:16→21:20)
[2021-04-01] MEDS: METOPROLOL TARTRATE 25 MG TABLET PO SCH ×2 (09:16→21:20)
[2021-04-01] MEDS: lisinopriL 20 MG TABLET PO SCH (09:16)
[2021-04-01] MEDS: ASCORBIC ACID 500 MG TABLET PO SCH ×2 (09:17→21:20)
[2021-04-01] MEDS: cefTRIAXone 1,000 MG in SODIUM CHLORIDE 0.9% 100 ML IV SCH (09:18)
[2021-04-01] MEDS: cycloSPORINE OPH EMUL 1 VIAL BOTH EYES SCH ×2 (10:17→21:19)
[2021-04-01] MEDS: FLUTICASONE 50 MCG NASAL SPRAY 16 GM BOTTLE BOTH NARES SCH ×2 (14:15→21:19)
[2021-04-01] MEDS: FUROSEMIDE 40 MG/4 ML VIAL IV SCH (16:00)
[2021-04-01] MEDS: SIMVASTATIN 20 MG TABLET PO SCH (21:20)
[2021-04-02] MEDS: INSULIN REGULAR 100 UNIT/ML SUBCUT SCH ×4 (00:31→18:25)
[2021-04-02] MEDS: methylPREDNISolone SOD SUC 40 MG/1 ML VIAL IV SCH ×3 (00:31→16:34)
[2021-04-02] MEDS: MORPHINE 4 MG/1 ML VIAL IV PRN ×2 (03:20→13:25)
[2021-04-02] MEDS: fentaNYL INJ 1,250 MCG in SODIUM CHLORIDE 0.9% 225 ML IV PRN ×4 (03:23→22:44)
[2021-04-02 04:08] LABS: ABG Base Excess 4.5 MMOL/L (-2.5-2.5); ABG HCO3 28.3 MMOL/L (20-26); ABG Oxygen Saturation 92.7 % (95-100); ABG PCO2 51.1 MM HG (35-48); ABG PH 7.385 (7.35-7.45); ABG PO2 66.4 MM HG (80-95); ABG TCO2 27.5 MMOL/L (23-27)
[2021-04-02 04:24] LABS: Basophils % 0.1 % (0.0-0.8); Eosinophils % 0.1 % (0.00-10.9); Hemoglobin 9.3 GM/DL (12.0-16.0); Immature Granulocytes % 1.7 %; Immature Granulocytes Absolute 0.13 #; Lymphocytes # 0.1 10*3/uL (1.4-4.0); Lymphocytes % 1.1 % (21.3-54.2); Mean Corpuscular HGB Conc 33.2 GM/DL (32-36); Mean Corpuscular Volume 88.6 FL (87-102); Mean Platelet Volume 10.2 FL (9.6-12.0); Monocytes % 3.3 % (1.7-12.7); Neutrophils % 93.7 % (38.7-73.9); Platelet Count 155 T/CUMM (130-400); Red Blood Count 3.16 MC/CUMM (3.8-5.5); Red Cell Distribution Width 12.6 % (9.3-17.3); White Blood Count 7.5 T/CUMM (4-12)
[2021-04-02 04:36] LABS: Bilirubin,Total 0.5 MG/DL (0.20-1.00); Calcium 8.6 MG/DL (8.5-10.1); Potassium 4.5 MMOL/L (3.5-5.1)
[2021-04-02 04:52] LABS: Band Neutrophils 1 % (0-10); Eosinophils 1 % (0-10); Hypochromia 1+; Microcytosis 1+; Platelet Estimate Adequate; Segmented Neutrophils 96 % (50-85); Total Cells Counted 100
[2021-04-02] MEDS: BUDESONIDE 0.5 MG/2 ML NEB RESP TX SCH (07:52)
[2021-04-02] MEDS: ARFORMOTEROL 15 MCG/2 ML NEB RESP TX SCH (07:52)
[2021-04-02] MEDS: LACTULOSE 20 GM/30 ML UDCUP PO SCH (08:50)
[2021-04-02] MEDS: FUROSEMIDE 40 MG/4 ML VIAL IV SCH (08:52)
[2021-04-02] MEDS: NIFEdipine 10 MG CAPSULE PO SCH ×3 (08:52→22:45)
[2021-04-02] MEDS: PANTOPRAZOLE 40 MG VIAL IV SCH (08:52)
[2021-04-02] MEDS: METOPROLOL TARTRATE 25 MG TABLET PO SCH ×2 (08:53→22:45)
[2021-04-02] MEDS: ASCORBIC ACID 500 MG TABLET PO SCH ×2 (08:53→22:45)
[2021-04-02] MEDS: lisinopriL 20 MG TABLET PO SCH (08:53)
[2021-04-02] MEDS: cefTRIAXone 1,000 MG in SODIUM CHLORIDE 0.9% 100 ML IV SCH (09:11)
[2021-04-02] MEDS: FONDAPARINUX 2.5 MG/0.5 ML SYRINGE SUBCUT SCH (09:11)
[2021-04-02] MEDS: cycloSPORINE OPH EMUL 1 VIAL BOTH EYES SCH ×2 (09:31→22:53)
[2021-04-02] MEDS: MIDAZOLAM 100 MG in SODIUM CHLORIDE 0.9% 80 ML IV PRN (11:30)
[2021-04-02] MEDS ORDERED: LORazepam 2 MG/1 ML VIAL IV PRN (14:28)
[2021-04-02] MEDS: FLUCONAZOLE INJ 200 MG/100 ML PREMIX IV SCH (15:32)
[2021-04-02] MEDS: FLUTICASONE 50 MCG NASAL SPRAY 16 GM BOTTLE BOTH NARES SCH ×2 (16:31→22:46)
[2021-04-02] MEDS: SIMVASTATIN 20 MG TABLET PO SCH (22:46)
[2021-04-03] MEDS: INSULIN REGULAR 100 UNIT/ML SUBCUT SCH ×4 (00:49→18:25)
[2021-04-03] MEDS: MIDAZOLAM 100 MG in SODIUM CHLORIDE 0.9% 80 ML IV PRN ×2 (02:30→18:27)
[2021-04-03] MEDS: fentaNYL INJ 1,250 MCG in SODIUM CHLORIDE 0.9% 225 ML IV PRN ×3 (04:35→20:29)
[2021-04-03 04:54] LABS: ABG Base Excess 3.9 MMOL/L (-2.5-2.5); ABG HCO3 29.3 MMOL/L (20-26); ABG Oxygen Saturation 97.8 % (95-100); ABG PCO2 49.9 MM HG (35-48); ABG PH 7.387 (7.35-7.45); ABG PO2 122.1 MM HG (80-95); ABG TCO2 30.9 MMOL/L (23-27); Allen Test Positive; Pt O2 Delivery Device Ventilator
[2021-04-03 05:16] LABS: Hematocrit 22.8 VOL% (35.7-47.0); Hemoglobin 7.7 GM/DL (12.0-16.0); Immature Granulocytes % 2.5 %; Immature Granulocytes Absolute 0.06 #; Lymphocytes # 0.1 10*3/uL (1.4-4.0); Mean Corpuscular HGB Conc 33.8 GM/DL (32-36); Mean Corpuscular Volume 88.7 FL (87-102); Mean Platelet Volume 10.2 FL (9.6-12.0); Monocytes % 2.5 % (1.7-12.7); Platelet Count 101 T/CUMM (130-400); Red Blood Count 2.57 MC/CUMM (3.8-5.5); Red Cell Distribution Width 12.8 % (9.3-17.3); White Blood Count 2.4 T/CUMM (4-12)
[2021-04-03 05:33] LABS: Albumin 1.7 G/DL (3.4-5.0); Bilirubin,Total 0.4 MG/DL (0.20-1.00); Calcium 8.2 MG/DL (8.5-10.1); Potassium 4.6 MMOL/L (3.5-5.1); Total Protein 4.6 G/DL (6.4-8.2)
[2021-04-03 05:48] LABS: Band Neutrophils 4 % (0-10); Hypochromia 1+; Lymphocytes 6 % (20-55); Microcytosis 1+; Platelet Estimate Decreased; Segmented Neutrophils 88 % (50-85); Total Cells Counted 100
[2021-04-03] MEDS: methylPREDNISolone SOD SUC 40 MG/1 ML VIAL IV SCH ×3 (06:53→16:25)
[2021-04-03] MEDS: BUDESONIDE 0.5 MG/2 ML NEB RESP TX SCH ×3 (07:20→19:30)
[2021-04-03] MEDS: ARFORMOTEROL 15 MCG/2 ML NEB RESP TX SCH ×3 (07:20→19:30)
[2021-04-03] MEDS: DORNASE ALFA 2.5 MG/2.5 ML VIAL RESP TX SCH ×3 (07:20→19:40)
[2021-04-03] MEDS: NIFEdipine 10 MG CAPSULE PO SCH ×3 (09:20→21:23)
[2021-04-03] MEDS: ASCORBIC ACID 500 MG TABLET PO SCH ×2 (09:20→21:23)
[2021-04-03] MEDS: LACTULOSE 20 GM/30 ML UDCUP PO SCH (09:20)
[2021-04-03] MEDS: lisinopriL 20 MG TABLET PO SCH (09:23)
[2021-04-03] MEDS: FONDAPARINUX 2.5 MG/0.5 ML SYRINGE SUBCUT SCH (09:23)
[2021-04-03] MEDS: METOPROLOL TARTRATE 25 MG TABLET PO SCH ×2 (09:23→21:23)
[2021-04-03] MEDS: FLUTICASONE 50 MCG NASAL SPRAY 16 GM BOTTLE BOTH NARES SCH ×2 (09:31→21:23)
[2021-04-03] MEDS: FUROSEMIDE 40 MG/4 ML VIAL IV SCH (09:32)
[2021-04-03] MEDS: PANTOPRAZOLE 40 MG VIAL IV SCH (09:36)
[2021-04-03] MEDS: cycloSPORINE OPH EMUL 1 VIAL BOTH EYES SCH ×2 (09:56→21:26)
[2021-04-03] MEDS: FLUCONAZOLE INJ 200 MG/100 ML PREMIX IV SCH (14:19)
[2021-04-03] MEDS: SIMVASTATIN 20 MG TABLET PO SCH (21:23)
[2021-04-04] MEDS: INSULIN REGULAR 100 UNIT/ML SUBCUT SCH ×4 (00:56→18:00)
[2021-04-04] MEDS: methylPREDNISolone SOD SUC 40 MG/1 ML VIAL IV SCH ×3 (00:59→17:06)
[2021-04-04 03:10] LABS: ABG Base Excess 5.2 MMOL/L (-2.5-2.5); ABG HCO3 29.1 MMOL/L (20-26); ABG Oxygen Saturation 96.8 % (95-100); ABG PCO2 50.8 MM HG (35-48); ABG PH 7.395 (7.35-7.45); ABG PO2 88.6 MM HG (80-95); ABG TCO2 28.3 MMOL/L (23-27)
[2021-04-04 05:30] LABS: Hematocrit 23.5 VOL% (35.7-47.0); Hemoglobin 7.9 GM/DL (12.0-16.0); Immature Granulocytes % 1.1 %; Immature Granulocytes Absolute 0.05 #; Lymphocytes # 0.1 10*3/uL (1.4-4.0); Lymphocytes % 1.3 % (21.3-54.2); Mean Corpuscular HGB Conc 33.6 GM/DL (32-36); Mean Platelet Volume 10.3 FL (9.6-12.0); Neutrophils % 95.6 % (38.7-73.9); Platelet Count 109 T/CUMM (130-400); Red Blood Count 2.67 MC/CUMM (3.8-5.5); Red Cell Distribution Width 12.6 % (9.3-17.3); White Blood Count 4.5 T/CUMM (4-12)
[2021-04-04 05:45] LABS: Calcium 8.4 MG/DL (8.5-10.1); Osmolality,Calculated 286.8 MOS/KG (273-304); Potassium 4.5 MMOL/L (3.5-5.1)
[2021-04-04 06:10] LABS: Band Neutrophils 2 % (0-10); Hypochromia 1+; Lymphocytes 1 % (20-55); Platelet Estimate Normal; Segmented Neutrophils 95 % (50-85); Total Cells Counted 100
[2021-04-04] MEDS: ARFORMOTEROL 15 MCG/2 ML NEB RESP TX SCH ×2 (07:08→19:36)
[2021-04-04] MEDS: BUDESONIDE 0.5 MG/2 ML NEB RESP TX SCH ×2 (07:08→19:36)
[2021-04-04] MEDS: DORNASE ALFA 2.5 MG/2.5 ML VIAL RESP TX SCH ×2 (07:20→19:36)
[2021-04-04] MEDS: FONDAPARINUX 2.5 MG/0.5 ML SYRINGE SUBCUT SCH (09:18)
[2021-04-04] MEDS: FLUTICASONE 50 MCG NASAL SPRAY 16 GM BOTTLE BOTH NARES SCH ×2 (09:19→21:20)
[2021-04-04] MEDS: cycloSPORINE OPH EMUL 1 VIAL BOTH EYES SCH ×2 (09:20→21:20)
[2021-04-04] MEDS: LACTULOSE 20 GM/30 ML UDCUP PO SCH (09:20)
[2021-04-04] MEDS: NIFEdipine 10 MG CAPSULE PO SCH ×3 (09:20→21:19)
[2021-04-04] MEDS: FUROSEMIDE 40 MG/4 ML VIAL IV SCH (09:21)
[2021-04-04] MEDS: PANTOPRAZOLE 40 MG VIAL IV SCH (09:22)
[2021-04-04] MEDS: ASCORBIC ACID 500 MG TABLET PO SCH ×2 (09:22→21:20)
[2021-04-04] MEDS: lisinopriL 20 MG TABLET PO SCH (09:22)
[2021-04-04] MEDS: BUDESONIDE/FORMOTEROL 160-4.5 INHALER 6 GM INH SCH ×2 (09:23→21:20)
[2021-04-04] MEDS: METOPROLOL TARTRATE 25 MG TABLET PO SCH ×2 (09:23→21:20)
[2021-04-04] MEDS: fentaNYL INJ 1,250 MCG in SODIUM CHLORIDE 0.9% 225 ML IV PRN (10:25)
[2021-04-04] MEDS: MIDAZOLAM 100 MG in SODIUM CHLORIDE 0.9% 80 ML IV PRN (12:18)
[2021-04-04] MEDS: FLUCONAZOLE INJ 200 MG/100 ML PREMIX IV SCH (14:18)
[2021-04-04] MEDS: METOCLOPRAMIDE 10 MG/2 ML VIAL IV SCH (18:01)
[2021-04-04] MEDS: SIMVASTATIN 20 MG TABLET PO SCH (21:19)
[2021-04-04] MEDS: MORPHINE 4 MG/1 ML VIAL IV PRN (21:22)
[2021-04-05] MEDS: INSULIN REGULAR 100 UNIT/ML SUBCUT SCH ×4 (00:36→18:12)
[2021-04-05] MEDS: METOCLOPRAMIDE 10 MG/2 ML VIAL IV SCH ×4 (00:37→18:11)
[2021-04-05] MEDS: methylPREDNISolone SOD SUC 40 MG/1 ML VIAL IV SCH ×3 (00:40→16:43)
[2021-04-05] MEDS: fentaNYL INJ 1,250 MCG in SODIUM CHLORIDE 0.9% 225 ML IV PRN ×3 (00:41→21:01)
[2021-04-05] MEDS: MORPHINE 4 MG/1 ML VIAL IV PRN ×3 (03:39→10:31)
[2021-04-05] MEDS: MIDAZOLAM 100 MG in SODIUM CHLORIDE 0.9% 80 ML IV PRN ×2 (04:32→17:19)
[2021-04-05 04:34] LABS: ABG Base Excess 4.3 MMOL/L (-2.5-2.5); ABG HCO3 28.1 MMOL/L (20-26); ABG Oxygen Saturation 95.2 % (95-100); ABG PCO2 52.5 MM HG (35-48); ABG PH 7.378 (7.35-7.45); ABG PO2 80.4 MM HG (80-95); ABG TCO2 26.6 MMOL/L (23-27); Allen Test Positive; Pt O2 Delivery Device Ventilator
[2021-04-05 05:27] LABS: Hematocrit 23.3 VOL% (35.7-47.0); Hemoglobin 7.9 GM/DL (12.0-16.0); Immature Granulocytes % 0.7 %; Immature Granulocytes Absolute 0.03 #; Lymphocytes # 0.1 10*3/uL (1.4-4.0); Lymphocytes % 1.4 % (21.3-54.2); Mean Corpuscular HGB Conc 33.9 GM/DL (32-36); Mean Platelet Volume 10.5 FL (9.6-12.0); Monocytes % 2.1 % (1.7-12.7); Neutrophils % 95.8 % (38.7-73.9); Platelet Count 119 T/CUMM (130-400); Red Blood Count 2.59 MC/CUMM (3.8-5.5); Red Cell Distribution Width 12.7 % (9.3-17.3); White Blood Count 4.3 T/CUMM (4-12)
[2021-04-05 05:29] LABS: Calcium 8.8 MG/DL (8.5-10.1); Osmolality,Calculated 295.4 MOS/KG (273-304); Potassium 4.2 MMOL/L (3.5-5.1)
[2021-04-05 05:57] LABS: Hypochromia 1+; Lymphocytes 1 % (20-55); Microcytosis 1+; Segmented Neutrophils 99 % (50-85); Total Cells Counted 100
[2021-04-05] MEDS: ARFORMOTEROL 15 MCG/2 ML NEB RESP TX SCH ×2 (07:30→19:20)
[2021-04-05] MEDS: BUDESONIDE 0.5 MG/2 ML NEB RESP TX SCH ×2 (07:30→19:20)
[2021-04-05] MEDS: DORNASE ALFA 2.5 MG/2.5 ML VIAL RESP TX SCH ×2 (07:39→19:20)
[2021-04-05] MEDS: METOPROLOL TARTRATE 25 MG TABLET PO SCH ×2 (08:43→22:24)
[2021-04-05] MEDS: lisinopriL 20 MG TABLET PO SCH (08:43)
[2021-04-05] MEDS: PANTOPRAZOLE 40 MG VIAL IV SCH (08:43)
[2021-04-05] MEDS: ASCORBIC ACID 500 MG TABLET PO SCH ×2 (08:43→21:41)
[2021-04-05] MEDS: LACTULOSE 20 GM/30 ML UDCUP PO SCH (08:44)
[2021-04-05] MEDS: FUROSEMIDE 40 MG/4 ML VIAL IV SCH (08:44)
[2021-04-05] MEDS: FONDAPARINUX 2.5 MG/0.5 ML SYRINGE SUBCUT SCH (08:44)
[2021-04-05] MEDS: POLYETHYLENE GLYCOL POWDER 17 GM PACK PO SCH (08:45)
[2021-04-05] MEDS: cycloSPORINE OPH EMUL 1 VIAL BOTH EYES SCH ×2 (08:47→21:42)
[2021-04-05] MEDS: BUDESONIDE/FORMOTEROL 160-4.5 INHALER 6 GM INH SCH ×2 (08:47→21:42)
[2021-04-05] MEDS: FLUTICASONE 50 MCG NASAL SPRAY 16 GM BOTTLE BOTH NARES SCH ×2 (08:47→21:41)
[2021-04-05] MEDS: NIFEdipine 10 MG CAPSULE PO SCH ×3 (10:43→21:41)
[2021-04-05] MEDS: FLUCONAZOLE INJ 200 MG/100 ML PREMIX IV SCH (14:27)
[2021-04-05] MEDS ORDERED: NOREPINEPHRINE 8 MG in SODIUM CHLORIDE 0.9% 242 ML IV PRN (17:51)
[2021-04-05] MEDS: SIMVASTATIN 20 MG TABLET PO SCH (21:41)
[2021-04-06] MEDS: INSULIN REGULAR 100 UNIT/ML SUBCUT SCH ×4 (00:47→18:27)
[2021-04-06] MEDS: methylPREDNISolone SOD SUC 40 MG/1 ML VIAL IV SCH ×3 (00:50→16:25)
[2021-04-06] MEDS: METOCLOPRAMIDE 10 MG/2 ML VIAL IV SCH ×4 (00:52→18:27)
[2021-04-06 03:51] LABS: ABG Base Excess 5.1 MMOL/L (-2.5-2.5); ABG HCO3 29.1 MMOL/L (20-26); ABG Oxygen Saturation 97.3 % (95-100); ABG PH 7.352 (7.35-7.45); ABG PO2 92.7 MM HG (80-95); ABG TCO2 29.9 MMOL/L (23-27)
[2021-04-06 05:10] LABS: Hematocrit 20.4 VOL% (35.7-47.0); Hemoglobin 6.9 GM/DL (12.0-16.0); Immature Granulocytes % 0.5 %; Immature Granulocytes Absolute 0.01 #; Lymphocytes # 0.1 10*3/uL (1.4-4.0); Lymphocytes % 2.4 % (21.3-54.2); Mean Corpuscular HGB Conc 33.8 GM/DL (32-36); Mean Corpuscular Volume 90.7 FL (87-102); Mean Platelet Volume 10.4 FL (9.6-12.0); Monocytes % 3.4 % (1.7-12.7); Neutrophils % 93.7 % (38.7-73.9); Platelet Count 100 T/CUMM (130-400); Red Blood Count 2.25 MC/CUMM (3.8-5.5); Red Cell Distribution Width 12.8 % (9.3-17.3); White Blood Count 2.1 T/CUMM (4-12)
[2021-04-06 05:12] LABS: Calcium 8.6 MG/DL (8.5-10.1); Osmolality,Calculated 303.1 MOS/KG (273-304); Potassium 4.1 MMOL/L (3.5-5.1)
[2021-04-06 05:26] LABS: Band Neutrophils 2 % (0-10); Hypochromia Slight; Lymphocytes 3 % (20-55); Microcytosis 1+; Segmented Neutrophils 94 % (50-85); Total Cells Counted 100
[2021-04-06 05:27] LABS: Ovalocytes Slight; Platelet Estimate Decreased
[2021-04-06 05:45] LABS: Hematocrit 20.8 VOL% (35.7-47.0); Hemoglobin 6.7 GM/DL (12.0-16.0); Immature Granulocytes % 1.1 %; Immature Granulocytes Absolute 0.02 #; Lymphocytes % 2.2 % (21.3-54.2); Mean Corpuscular HGB Conc 32.2 GM/DL (32-36); Mean Corpuscular Volume 91.6 FL (87-102); Mean Platelet Volume 9.9 FL (9.6-12.0); Monocytes % 3.3 % (1.7-12.7); Neutrophils % 93.4 % (38.7-73.9); Platelet Count 99 T/CUMM (130-400); Red Blood Count 2.27 MC/CUMM (3.8-5.5); Red Cell Distribution Width 12.8 % (9.3-17.3); White Blood Count 1.8 T/CUMM (4-12)
[2021-04-06 06:11] LABS: Band Neutrophils 2 % (0-10); Hypochromia 1+; Lymphocytes 1 % (20-55); Microcytosis 1+; Ovalocytes Slight; Platelet Estimate Decreased; Segmented Neutrophils 96 % (50-85); Total Cells Counted 100
[2021-04-06] MEDS ORDERED: SODIUM CHLORIDE 0.9% 1,000 ML IV PRN (06:16)
[2021-04-06] MEDS: fentaNYL INJ 1,250 MCG in SODIUM CHLORIDE 0.9% 225 ML IV PRN ×3 (06:37→21:12)
[2021-04-06] MEDS: BUDESONIDE 0.5 MG/2 ML NEB RESP TX SCH ×2 (07:45→18:50)
[2021-04-06] MEDS: ARFORMOTEROL 15 MCG/2 ML NEB RESP TX SCH ×2 (07:45→18:50)
[2021-04-06] MEDS: DORNASE ALFA 2.5 MG/2.5 ML VIAL RESP TX SCH (08:10)
[2021-04-06] MEDS: lisinopriL 20 MG TABLET PO SCH (09:33)
[2021-04-06] MEDS: ASCORBIC ACID 500 MG TABLET PO SCH ×2 (09:33→21:11)
[2021-04-06] MEDS: LACTULOSE 20 GM/30 ML UDCUP PO SCH (09:33)
[2021-04-06] MEDS: METOPROLOL TARTRATE 25 MG TABLET PO SCH ×2 (09:34→21:18)
[2021-04-06] MEDS: PANTOPRAZOLE 40 MG VIAL IV SCH (09:34)
[2021-04-06] MEDS: NIFEdipine 10 MG CAPSULE PO SCH ×3 (09:34→21:19)
[2021-04-06] MEDS: FUROSEMIDE 40 MG/4 ML VIAL IV SCH (09:34)
[2021-04-06] MEDS: POLYETHYLENE GLYCOL POWDER 17 GM PACK PO SCH (09:35)
[2021-04-06] MEDS: cycloSPORINE OPH EMUL 1 VIAL BOTH EYES SCH ×2 (09:36→21:11)
[2021-04-06] MEDS: FONDAPARINUX 2.5 MG/0.5 ML SYRINGE SUBCUT SCH (09:45)
[2021-04-06] MEDS: FLUTICASONE 50 MCG NASAL SPRAY 16 GM BOTTLE BOTH NARES SCH ×2 (09:45→21:11)
[2021-04-06] MEDS: BUDESONIDE/FORMOTEROL 160-4.5 INHALER 6 GM INH SCH ×2 (09:46→21:12)
[2021-04-06] MEDS: MIDAZOLAM 100 MG in SODIUM CHLORIDE 0.9% 80 ML IV PRN (13:00)
[2021-04-06] MEDS: FLUCONAZOLE INJ 200 MG/100 ML PREMIX IV SCH (16:00)
[2021-04-06] MEDS: MENTHOL/ZINC OXIDE OINT 71 GM JAR TOP SCH ×2 (18:24→21:11)
[2021-04-06] MEDS: SIMVASTATIN 20 MG TABLET PO SCH (21:11)
[2021-04-06] MEDS: MORPHINE 4 MG/1 ML VIAL IV PRN (22:15)
[2021-04-07] MEDS: INSULIN REGULAR 100 UNIT/ML SUBCUT SCH ×4 (00:56→19:31)
[2021-04-07] MEDS: METOCLOPRAMIDE 10 MG/2 ML VIAL IV SCH ×4 (01:00→19:31)
[2021-04-07] MEDS: methylPREDNISolone SOD SUC 40 MG/1 ML VIAL IV SCH ×3 (01:04→19:30)
[2021-04-07 04:05] LABS: ABG Base Excess 4.2 MMOL/L (-2.5-2.5); ABG HCO3 28.1 MMOL/L (20-26); ABG Oxygen Saturation 95.7 % (95-100); ABG PCO2 50.8 MM HG (35-48); ABG PH 7.385 (7.35-7.45); ABG PO2 81.2 MM HG (80-95); ABG TCO2 26.9 MMOL/L (23-27)
[2021-04-07 04:50] LABS: Hematocrit 34.7 VOL% (35.7-47.0); Hemoglobin 11.6 GM/DL (12.0-16.0); Immature Granulocytes % 1.2 %; Immature Granulocytes Absolute 0.07 #; Lymphocytes # 0.1 10*3/uL (1.4-4.0); Lymphocytes % 1.4 % (21.3-54.2); Mean Corpuscular HGB Conc 33.4 GM/DL (32-36); Mean Corpuscular Volume 89.2 FL (87-102); Mean Platelet Volume 10.1 FL (9.6-12.0); Monocytes % 3.1 % (1.7-12.7); Neutrophils % 94.3 % (38.7-73.9); Platelet Count 119 T/CUMM (130-400); Red Blood Count 3.89 MC/CUMM (3.8-5.5); Red Cell Distribution Width 12.8 % (9.3-17.3); White Blood Count 5.8 T/CUMM (4-12)
[2021-04-07 04:58] LABS: Calcium 9.3 MG/DL (8.5-10.1); Osmolality,Calculated 302.1 MOS/KG (273-304); Potassium 3.9 MMOL/L (3.5-5.1)
[2021-04-07] MEDS: fentaNYL INJ 1,250 MCG in SODIUM CHLORIDE 0.9% 225 ML IV PRN ×2 (05:17→12:15)
[2021-04-07 05:21] LABS: Band Neutrophils 1 % (0-10); Lymphocytes 1 % (20-55); Segmented Neutrophils 97 % (50-85); Total Cells Counted 100
[2021-04-07 05:22] LABS: Hypochromia Slight; Microcytosis Slight
[2021-04-07] MEDS: MIDAZOLAM 100 MG in SODIUM CHLORIDE 0.9% 80 ML IV PRN ×2 (07:00→21:15)
[2021-04-07] MEDS: ARFORMOTEROL 15 MCG/2 ML NEB RESP TX SCH ×2 (07:20→21:10)
[2021-04-07] MEDS: BUDESONIDE 0.5 MG/2 ML NEB RESP TX SCH ×2 (07:20→21:10)
[2021-04-07] MEDS: FUROSEMIDE 40 MG/4 ML VIAL IV SCH (08:32)
[2021-04-07] MEDS: FONDAPARINUX 2.5 MG/0.5 ML SYRINGE SUBCUT SCH (08:33)
[2021-04-07] MEDS: POLYETHYLENE GLYCOL POWDER 17 GM PACK PO SCH (08:33)
[2021-04-07] MEDS: PANTOPRAZOLE 40 MG VIAL IV SCH (08:33)
[2021-04-07] MEDS: LACTULOSE 20 GM/30 ML UDCUP PO SCH (08:33)
[2021-04-07] MEDS: METOPROLOL TARTRATE 25 MG TABLET PO SCH ×2 (08:34→20:14)
[2021-04-07] MEDS: lisinopriL 20 MG TABLET PO SCH (08:34)
[2021-04-07] MEDS: NIFEdipine 10 MG CAPSULE PO SCH ×3 (08:34→20:14)
[2021-04-07] MEDS: cycloSPORINE OPH EMUL 1 VIAL BOTH EYES SCH ×2 (08:34→20:14)
[2021-04-07] MEDS: ASCORBIC ACID 500 MG TABLET PO SCH ×2 (08:34→20:14)
[2021-04-07] MEDS: BUDESONIDE/FORMOTEROL 160-4.5 INHALER 6 GM INH SCH ×2 (08:35→20:15)
[2021-04-07] MEDS: MENTHOL/ZINC OXIDE OINT 71 GM JAR TOP SCH ×2 (08:35→20:15)
[2021-04-07] MEDS: FLUTICASONE 50 MCG NASAL SPRAY 16 GM BOTTLE BOTH NARES SCH ×2 (10:50→20:15)
[2021-04-07] MEDS: FLUCONAZOLE INJ 200 MG/100 ML PREMIX IV SCH (14:07)
[2021-04-07] MEDS: SIMVASTATIN 20 MG TABLET PO SCH (20:14)
[2021-04-08] MEDS: INSULIN REGULAR 100 UNIT/ML SUBCUT SCH ×4 (00:36→18:29)
[2021-04-08] MEDS: METOCLOPRAMIDE 10 MG/2 ML VIAL IV SCH ×4 (00:38→18:30)
[2021-04-08] MEDS: methylPREDNISolone SOD SUC 40 MG/1 ML VIAL IV SCH ×3 (00:44→18:29)
[2021-04-08 04:02] LABS: ABG Base Excess 4.4 MMOL/L (-2.5-2.5); ABG HCO3 28.3 MMOL/L (20-26); ABG Oxygen Saturation 93.1 % (95-100); ABG PCO2 46.7 MM HG (35-48); ABG PH 7.413 (7.35-7.45); ABG PO2 68.5 MM HG (80-95); ABG TCO2 26.9 MMOL/L (23-27)
[2021-04-08 04:37] LABS: Calcium 8.9 MG/DL (8.5-10.1); Hematocrit 31.2 VOL% (35.7-47.0); Hemoglobin 10.4 GM/DL (12.0-16.0); Immature Granulocytes % 1.4 %; Immature Granulocytes Absolute 0.06 #; Lymphocytes # 0.1 10*3/uL (1.4-4.0); Lymphocytes % 1.1 % (21.3-54.2); Mean Corpuscular HGB Conc 33.3 GM/DL (32-36); Mean Corpuscular Volume 88.6 FL (87-102); Mean Platelet Volume 10.2 FL (9.6-12.0); Monocytes % 3.2 % (1.7-12.7); Neutrophils % 94.3 % (38.7-73.9); Osmolality,Calculated 302.3 MOS/KG (273-304); Platelet Count 127 T/CUMM (130-400); Potassium 4.2 MMOL/L (3.5-5.1); Red Blood Count 3.52 MC/CUMM (3.8-5.5); White Blood Count 4.4 T/CUMM (4-12)
[2021-04-08 05:01] LABS: Band Neutrophils 1 % (0-10); Hypochromia 1+; Lymphocytes 2 % (20-55); Microcytosis 1+; Platelet Estimate Normal; Segmented Neutrophils 97 % (50-85); Total Cells Counted 100
[2021-04-08] MEDS: HYDROCORTISONE 2.5% RECTAL CREAM 30 GM TUBE TOP PRN (05:48)
[2021-04-08] MEDS: BUDESONIDE 0.5 MG/2 ML NEB RESP TX SCH ×2 (07:10→19:30)
[2021-04-08] MEDS: ARFORMOTEROL 15 MCG/2 ML NEB RESP TX SCH ×2 (07:10→19:30)
[2021-04-08] MEDS: LACTULOSE 20 GM/30 ML UDCUP PO SCH (08:28)
[2021-04-08] MEDS: PANTOPRAZOLE 40 MG VIAL IV SCH ×2 (08:28→20:54)
[2021-04-08] MEDS: FUROSEMIDE 40 MG/4 ML VIAL IV SCH (08:29)
[2021-04-08] MEDS: FONDAPARINUX 2.5 MG/0.5 ML SYRINGE SUBCUT SCH (08:29)
[2021-04-08] MEDS: lisinopriL 20 MG TABLET PO SCH (08:30)
[2021-04-08] MEDS: ASCORBIC ACID 500 MG TABLET PO SCH ×2 (08:30→20:55)
[2021-04-08] MEDS: cycloSPORINE OPH EMUL 1 VIAL BOTH EYES SCH ×2 (08:30→20:56)
[2021-04-08] MEDS: POLYETHYLENE GLYCOL POWDER 17 GM PACK PO SCH (08:30)
[2021-04-08] MEDS: NIFEdipine 10 MG CAPSULE PO SCH ×3 (08:31→20:55)
[2021-04-08] MEDS: FLUTICASONE 50 MCG NASAL SPRAY 16 GM BOTTLE BOTH NARES SCH ×2 (08:31→20:56)
[2021-04-08] MEDS: METOPROLOL TARTRATE 25 MG TABLET PO SCH ×2 (08:31→20:55)
[2021-04-08] MEDS: MENTHOL/ZINC OXIDE OINT 71 GM JAR TOP SCH ×2 (08:31→20:56)
[2021-04-08] MEDS: BUDESONIDE/FORMOTEROL 160-4.5 INHALER 6 GM INH SCH ×2 (08:31→20:56)
[2021-04-08] MEDS: fentaNYL INJ 1,250 MCG in SODIUM CHLORIDE 0.9% 225 ML IV PRN ×2 (11:18→19:55)
[2021-04-08] MEDS: FLUCONAZOLE INJ 200 MG/100 ML PREMIX IV SCH (14:29)
[2021-04-08] MEDS: SIMVASTATIN 20 MG TABLET PO SCH (20:55)
[2021-04-09] MEDS: INSULIN REGULAR 100 UNIT/ML SUBCUT SCH ×5 (00:11→23:53)
[2021-04-09] MEDS: methylPREDNISolone SOD SUC 40 MG/1 ML VIAL IV SCH ×3 (00:11→18:20)
[2021-04-09] MEDS: METOCLOPRAMIDE 10 MG/2 ML VIAL IV SCH ×5 (00:12→23:53)
[2021-04-09 04:11] LABS: Hematocrit 29.4 VOL% (35.7-47.0); Hemoglobin 9.9 GM/DL (12.0-16.0); Immature Granulocytes % 1.2 %; Immature Granulocytes Absolute 0.05 #; Lymphocytes # 0.1 10*3/uL (1.4-4.0); Lymphocytes % 1.7 % (21.3-54.2); Mean Corpuscular HGB Conc 33.7 GM/DL (32-36); Mean Corpuscular Volume 87.8 FL (87-102); Mean Platelet Volume 10.1 FL (9.6-12.0); Monocytes % 1.7 % (1.7-12.7); Neutrophils % 95.4 % (38.7-73.9); Platelet Count 115 T/CUMM (130-400); Red Blood Count 3.35 MC/CUMM (3.8-5.5); Red Cell Distribution Width 12.8 % (9.3-17.3); White Blood Count 4.1 T/CUMM (4-12)
[2021-04-09 04:16] LABS: Calcium 8.7 MG/DL (8.5-10.1); Osmolality,Calculated 298.5 MOS/KG (273-304)
[2021-04-09 04:18] LABS: ABG Base Excess 6.3 MMOL/L (-2.5-2.5); ABG HCO3 30.7 MMOL/L (20-26); ABG Oxygen Saturation 92.5 % (95-100); ABG PCO2 43.9 MM HG (35-48); ABG PH 7.463 (7.35-7.45); ABG PO2 63.2 MM HG (80-95); ABG TCO2 32.1 MMOL/L (23-27)
[2021-04-09 04:22] LABS: Potassium 4.4 MMOL/L (3.5-5.1)
[2021-04-09 04:34] LABS: Hypochromia Slight; Lymphocytes 2 % (20-55); Microcytosis Slight; Platelet Estimate Decreased; Segmented Neutrophils 97 % (50-85); Total Cells Counted 100
[2021-04-09] MEDS: MIDAZOLAM 100 MG in SODIUM CHLORIDE 0.9% 80 ML IV PRN ×2 (04:45→19:21)
[2021-04-09] MEDS: fentaNYL INJ 1,250 MCG in SODIUM CHLORIDE 0.9% 225 ML IV PRN ×2 (05:26→16:19)
[2021-04-09] MEDS: BUDESONIDE 0.5 MG/2 ML NEB RESP TX SCH ×2 (07:20→20:00)
[2021-04-09] MEDS: ARFORMOTEROL 15 MCG/2 ML NEB RESP TX SCH ×2 (07:20→20:00)
[2021-04-09] MEDS: NIFEdipine 10 MG CAPSULE PO SCH ×3 (10:30→20:27)
[2021-04-09] MEDS: FUROSEMIDE 40 MG/4 ML VIAL IV SCH (10:30)
[2021-04-09] MEDS: FLUTICASONE 50 MCG NASAL SPRAY 16 GM BOTTLE BOTH NARES SCH ×2 (10:30→20:27)
[2021-04-09] MEDS: PANTOPRAZOLE 40 MG VIAL IV SCH ×2 (10:30→20:28)
[2021-04-09] MEDS: BUDESONIDE/FORMOTEROL 160-4.5 INHALER 6 GM INH SCH ×2 (10:30→20:27)
[2021-04-09] MEDS: cycloSPORINE OPH EMUL 1 VIAL BOTH EYES SCH ×2 (10:30→20:27)
[2021-04-09] MEDS: ASCORBIC ACID 500 MG TABLET PO SCH ×2 (10:30→20:27)
[2021-04-09] MEDS: METOPROLOL TARTRATE 25 MG TABLET PO SCH ×2 (10:30→20:27)
[2021-04-09] MEDS: lisinopriL 20 MG TABLET PO SCH (10:30)
[2021-04-09] MEDS: FONDAPARINUX 2.5 MG/0.5 ML SYRINGE SUBCUT SCH (10:30)
[2021-04-09] MEDS: MENTHOL/ZINC OXIDE OINT 71 GM JAR TOP SCH ×2 (10:30→20:27)
[2021-04-09] MEDS: LACTULOSE 20 GM/30 ML UDCUP PO SCH (10:30)
[2021-04-09] MEDS: FLUCONAZOLE INJ 200 MG/100 ML PREMIX IV SCH (13:40)
[2021-04-09] MEDS: SIMVASTATIN 20 MG TABLET PO SCH (20:27)
[2021-04-10] MEDS: fentaNYL INJ 1,250 MCG in SODIUM CHLORIDE 0.9% 225 ML IV PRN ×3 (02:31→17:40)
[2021-04-10 03:48] LABS: Basophils % 0.2 % (0.0-0.8); Hematocrit 28.7 VOL% (35.7-47.0); Hemoglobin 9.6 GM/DL (12.0-16.0); Immature Granulocytes % 1.3 %; Immature Granulocytes Absolute 0.08 #; Lymphocytes # 0.1 10*3/uL (1.4-4.0); Lymphocytes % 1.3 % (21.3-54.2); Mean Corpuscular HGB Conc 33.4 GM/DL (32-36); Mean Corpuscular Volume 89.1 FL (87-102); Monocytes % 2.1 % (1.7-12.7); Neutrophils % 95.1 % (38.7-73.9); Platelet Count 128 T/CUMM (130-400); Red Blood Count 3.22 MC/CUMM (3.8-5.5); Red Cell Distribution Width 12.9 % (9.3-17.3); White Blood Count 6.3 T/CUMM (4-12)
[2021-04-10 04:08] LABS: Calcium 8.7 MG/DL (8.5-10.1); Osmolality,Calculated 303.1 MOS/KG (273-304); Potassium 4.7 MMOL/L (3.5-5.1)
[2021-04-10 04:25] LABS: Anisocytosis 1+; Lymphocytes 1 % (20-55); Platelet Estimate Decreased; Segmented Neutrophils 98 % (50-85); Total Cells Counted 100
[2021-04-10 05:04] LABS: ABG Base Excess 7.1 MMOL/L (-2.5-2.5); ABG HCO3 31.9 MMOL/L (20-26); ABG Oxygen Saturation 93.2 % (95-100); ABG PCO2 46.7 MM HG (35-48); ABG PH 7.453 (7.35-7.45); ABG PO2 68.3 MM HG (80-95); ABG TCO2 33.4 MMOL/L (23-27)
[2021-04-10] MEDS: INSULIN REGULAR 100 UNIT/ML SUBCUT SCH ×3 (05:50→18:00)
[2021-04-10] MEDS: METOCLOPRAMIDE 10 MG/2 ML VIAL IV SCH ×3 (05:51→18:00)
[2021-04-10] MEDS: ARFORMOTEROL 15 MCG/2 ML NEB RESP TX SCH ×2 (07:05→19:05)
[2021-04-10] MEDS: BUDESONIDE 0.5 MG/2 ML NEB RESP TX SCH ×2 (07:05→19:05)
[2021-04-10] MEDS: LACTULOSE 20 GM/30 ML UDCUP PO SCH (08:58)
[2021-04-10] MEDS: FONDAPARINUX 2.5 MG/0.5 ML SYRINGE SUBCUT SCH (08:58)
[2021-04-10] MEDS: methylPREDNISolone SOD SUC 40 MG/1 ML VIAL IV SCH ×3 (08:58→17:55)
[2021-04-10] MEDS: PANTOPRAZOLE 40 MG VIAL IV SCH ×2 (08:58→20:36)
[2021-04-10] MEDS: ASCORBIC ACID 500 MG TABLET PO SCH ×2 (08:59→20:34)
[2021-04-10] MEDS: lisinopriL 20 MG TABLET PO SCH (08:59)
[2021-04-10] MEDS: METOPROLOL TARTRATE 25 MG TABLET PO SCH ×2 (08:59→20:34)
[2021-04-10] MEDS: FUROSEMIDE 40 MG/4 ML VIAL IV SCH (08:59)
[2021-04-10] MEDS: MENTHOL/ZINC OXIDE OINT 71 GM JAR TOP SCH ×2 (09:00→20:35)
[2021-04-10] MEDS: cycloSPORINE OPH EMUL 1 VIAL BOTH EYES SCH ×2 (09:00→20:37)
[2021-04-10] MEDS: NIFEdipine 10 MG CAPSULE PO SCH ×3 (09:00→20:34)
[2021-04-10] MEDS: BUDESONIDE/FORMOTEROL 160-4.5 INHALER 6 GM INH SCH ×2 (09:01→20:36)
[2021-04-10] MEDS: MIDAZOLAM 100 MG in SODIUM CHLORIDE 0.9% 80 ML IV PRN (09:35)
[2021-04-10] MEDS: FLUTICASONE 50 MCG NASAL SPRAY 16 GM BOTTLE BOTH NARES SCH ×2 (12:20→20:37)
[2021-04-10] MEDS: SIMVASTATIN 20 MG TABLET PO SCH (20:37)
[2021-04-11] MEDS: METOCLOPRAMIDE 10 MG/2 ML VIAL IV SCH ×4 (00:36→18:19)
[2021-04-11] MEDS: INSULIN REGULAR 100 UNIT/ML SUBCUT SCH ×4 (00:36→18:19)
[2021-04-11] MEDS: methylPREDNISolone SOD SUC 40 MG/1 ML VIAL IV SCH ×3 (00:37→17:30)
[2021-04-11 03:25] LABS: Hematocrit 27.6 VOL% (35.7-47.0); Hemoglobin 9.1 GM/DL (12.0-16.0); Lymphocytes # 0.1 10*3/uL (1.4-4.0); Lymphocytes % 1.4 % (21.3-54.2); Mean Corpuscular Volume 88.5 FL (87-102); Monocytes % 2.4 % (1.7-12.7); Neutrophils % 94.2 % (38.7-73.9); Platelet Count 121 T/CUMM (130-400); Red Blood Count 3.12 MC/CUMM (3.8-5.5); Red Cell Distribution Width 12.7 % (9.3-17.3)
[2021-04-11 03:38] LABS: ABG Base Excess 7.6 MMOL/L (-2.5-2.5); ABG HCO3 32.1 MMOL/L (20-26); ABG Oxygen Saturation 93.8 % (95-100); ABG PCO2 45.2 MM HG (35-48); ABG PH 7.469 (7.35-7.45); ABG PO2 69.2 MM HG (80-95); ABG TCO2 33.5 MMOL/L (23-27)
[2021-04-11 03:39] LABS: Calcium 8.8 MG/DL (8.5-10.1); Osmolality,Calculated 292.8 MOS/KG (273-304); Potassium 4.6 MMOL/L (3.5-5.1)
[2021-04-11] MEDS: fentaNYL INJ 1,250 MCG in SODIUM CHLORIDE 0.9% 225 ML IV PRN ×2 (03:45→23:45)
[2021-04-11 03:58] LABS: Hypochromia 1+; Microcytosis 1+; Segmented Neutrophils 99 % (50-85); Total Cells Counted 100
[2021-04-11] MEDS: hydrALAZINE 20 MG/1 ML VIAL IV PRN (06:38)
[2021-04-11] MEDS: ARFORMOTEROL 15 MCG/2 ML NEB RESP TX SCH ×2 (07:45→19:13)
[2021-04-11] MEDS: BUDESONIDE 0.5 MG/2 ML NEB RESP TX SCH ×2 (07:45→19:13)
[2021-04-11] MEDS ORDERED: MORPHINE 4 MG/1 ML VIAL ONE (08:11)
[2021-04-11] MEDS: MORPHINE 4 MG/1 ML VIAL IV PRN (08:15)
[2021-04-11] MEDS: PANTOPRAZOLE 40 MG VIAL IV SCH ×2 (08:44→21:18)
[2021-04-11] MEDS: NIFEdipine 10 MG CAPSULE PO SCH ×3 (08:44→21:18)
[2021-04-11] MEDS: FUROSEMIDE 40 MG/4 ML VIAL IV SCH (08:44)
[2021-04-11] MEDS: lisinopriL 20 MG TABLET PO SCH (08:44)
[2021-04-11] MEDS: METOPROLOL TARTRATE 25 MG TABLET PO SCH ×2 (08:44→21:18)
[2021-04-11] MEDS: FONDAPARINUX 2.5 MG/0.5 ML SYRINGE SUBCUT SCH (08:45)
[2021-04-11] MEDS: MENTHOL/ZINC OXIDE OINT 71 GM JAR TOP SCH ×2 (08:45→21:17)
[2021-04-11] MEDS: ASCORBIC ACID 500 MG TABLET PO SCH ×2 (08:45→21:18)
[2021-04-11] MEDS: LACTULOSE 20 GM/30 ML UDCUP PO SCH (08:45)
[2021-04-11] MEDS: BUDESONIDE/FORMOTEROL 160-4.5 INHALER 6 GM INH SCH ×2 (08:46→21:18)
[2021-04-11] MEDS: cycloSPORINE OPH EMUL 1 VIAL BOTH EYES SCH ×2 (08:46→21:18)
[2021-04-11] MEDS: CEFTAROLINE 600 MG in SODIUM CHLORIDE 0.9% 100 ML IV SCH ×2 (12:00→23:15)
[2021-04-11] MEDS ORDERED: ALBUMIN 5% 25 GM/500 ML VIAL IV SCH (13:00)
[2021-04-11] MEDS: FLUTICASONE 50 MCG NASAL SPRAY 16 GM BOTTLE BOTH NARES SCH ×2 (13:03→21:17)
[2021-04-11] MEDS: SIMVASTATIN 20 MG TABLET PO SCH (21:18)
[2021-04-12] MEDS: METOCLOPRAMIDE 10 MG/2 ML VIAL IV SCH ×5 (00:20→23:55)
[2021-04-12] MEDS: INSULIN REGULAR 100 UNIT/ML SUBCUT SCH ×5 (00:20→23:55)
[2021-04-12] MEDS: methylPREDNISolone SOD SUC 40 MG/1 ML VIAL IV SCH ×3 (00:21→17:00)
[2021-04-12] MEDS: hydrALAZINE 20 MG/1 ML VIAL IV PRN (03:06)
[2021-04-12 03:21] LABS: Basophils % 0.1 % (0.0-0.8); Hematocrit 28.1 VOL% (35.7-47.0); Hemoglobin 9.7 GM/DL (12.0-16.0); Immature Granulocytes % 3.4 %; Immature Granulocytes Absolute 0.27 #; Lymphocytes # 0.1 10*3/uL (1.4-4.0); Lymphocytes % 1.5 % (21.3-54.2); Mean Corpuscular HGB Conc 34.5 GM/DL (32-36); Mean Corpuscular Volume 85.7 FL (87-102); Mean Platelet Volume 10.2 FL (9.6-12.0); Monocytes % 2.2 % (1.7-12.7); Neutrophils % 92.8 % (38.7-73.9); Platelet Count 139 T/CUMM (130-400); Red Blood Count 3.28 MC/CUMM (3.8-5.5); Red Cell Distribution Width 12.5 % (9.3-17.3); White Blood Count 7.9 T/CUMM (4-12)
[2021-04-12 03:33] LABS: Calcium 8.8 MG/DL (8.5-10.1); Osmolality,Calculated 284.4 MOS/KG (273-304); Potassium 4.3 MMOL/L (3.5-5.1)
[2021-04-12 03:55] LABS: ABG Base Excess 4.5 MMOL/L (-2.5-2.5); ABG HCO3 27.8 MMOL/L (20-26); ABG Oxygen Saturation 93.8 % (95-100); ABG PCO2 36.5 MM HG (35-48); ABG PO2 67.3 MM HG (80-95); ABG TCO2 28.9 MMOL/L (23-27)
[2021-04-12 04:06] LABS: Band Neutrophils 1 % (0-10); Hypochromia Slight; Lymphocytes 2 % (20-55); Microcytosis Slight; Platelet Estimate Adequate; Segmented Neutrophils 96 % (50-85); Total Cells Counted 100
[2021-04-12] MEDS: BUDESONIDE 0.5 MG/2 ML NEB RESP TX SCH ×2 (07:25→18:50)
[2021-04-12] MEDS: ARFORMOTEROL 15 MCG/2 ML NEB RESP TX SCH ×2 (07:25→18:50)
[2021-04-12] MEDS: MORPHINE 4 MG/1 ML VIAL IV PRN (07:39)
[2021-04-12] MEDS: PANTOPRAZOLE 40 MG VIAL IV SCH ×2 (08:23→20:28)
[2021-04-12] MEDS: NIFEdipine 10 MG CAPSULE PO SCH ×3 (08:24→20:28)
[2021-04-12] MEDS: METOPROLOL TARTRATE 25 MG TABLET PO SCH (08:24)
[2021-04-12] MEDS: FUROSEMIDE 40 MG/4 ML VIAL IV SCH (08:24)
[2021-04-12] MEDS: ASCORBIC ACID 500 MG TABLET PO SCH ×2 (08:24→20:28)
[2021-04-12] MEDS: LACTULOSE 20 GM/30 ML UDCUP PO SCH (08:24)
[2021-04-12] MEDS: lisinopriL 20 MG TABLET PO SCH (08:24)
[2021-04-12] MEDS: MENTHOL/ZINC OXIDE OINT 71 GM JAR TOP SCH ×2 (08:25→20:28)
[2021-04-12] MEDS: FONDAPARINUX 2.5 MG/0.5 ML SYRINGE SUBCUT SCH (08:25)
[2021-04-12] MEDS: cycloSPORINE OPH EMUL 1 VIAL BOTH EYES SCH ×2 (08:25→20:28)
[2021-04-12] MEDS: BUDESONIDE/FORMOTEROL 160-4.5 INHALER 6 GM INH SCH ×2 (08:26→20:28)
[2021-04-12] MEDS ORDERED: DEXMEDETOMIDINE 200 MCG in SODIUM CHLORIDE 0.9% 48 ML IV PRN (10:19)
[2021-04-12] MEDS ORDERED: fentaNYL 25 MCG/HR PATCH TRANSDERM SCH (10:19)
[2021-04-12] MEDS: FLUTICASONE 50 MCG NASAL SPRAY 16 GM BOTTLE BOTH NARES SCH ×2 (10:53→20:28)
[2021-04-12] MEDS: CITALOPRAM 20 MG TABLET PO SCH (11:30)
[2021-04-12] MEDS: CEFTAROLINE 600 MG in SODIUM CHLORIDE 0.9% 100 ML IV SCH ×2 (11:30→23:55)
[2021-04-12] MEDS ORDERED: HEPARIN/NACL 0.9% 2 UNITS/ML 1,000 UNIT/500 ML BAG IV ONE (14:56)
[2021-04-12] MEDS: METOPROLOL TARTRATE 5 MG/5 ML VIAL IV PRN (15:45)
[2021-04-12] MEDS: METOPROLOL TARTRATE 50 MG TABLET PO SCH (20:28)
[2021-04-12] MEDS: SIMVASTATIN 20 MG TABLET PO SCH (20:29)
[2021-04-12] MEDS: DEXMEDETOMIDINE 400 MCG in SODIUM CHLORIDE 0.9% 96 ML IV PRN (22:01)
[2021-04-12] MEDS: MIDAZOLAM 100 MG in SODIUM CHLORIDE 0.9% 80 ML IV PRN (22:12)
[2021-04-13 03:25] LABS: ABG Base Excess 1.3 MMOL/L (-2.5-2.5); ABG HCO3 25.6 MMOL/L (20-26); ABG Oxygen Saturation 95.2 % (95-100); ABG PCO2 39.7 MM HG (35-48); ABG PH 7.421 (7.35-7.45); ABG PO2 78.2 MM HG (80-95); ABG TCO2 23.4 MMOL/L (23-27)
[2021-04-13 03:40] LABS: Hemoglobin 8.5 GM/DL (12.0-16.0); Immature Granulocytes % 1.9 %; Immature Granulocytes Absolute 0.08 #; Lymphocytes # 0.1 10*3/uL (1.4-4.0); Lymphocytes % 1.5 % (21.3-54.2); Mean Corpuscular Volume 85.6 FL (87-102); Mean Platelet Volume 10.4 FL (9.6-12.0); Monocytes % 1.9 % (1.7-12.7); Neutrophils % 94.7 % (38.7-73.9); Red Blood Count 2.92 MC/CUMM (3.8-5.5); Red Cell Distribution Width 12.8 % (9.3-17.3)
[2021-04-13 03:42] LABS: Platelet Count 108 T/CUMM (130-400)
[2021-04-13 03:43] LABS: White Blood Count 4.1 T/CUMM (4-12)
[2021-04-13 03:55] LABS: Calcium 8.3 MG/DL (8.5-10.1); Potassium 4.1 MMOL/L (3.5-5.1)
[2021-04-13 04:02] LABS: Band Neutrophils 1 % (0-10); Hypochromia 1+; Lymphocytes 1 % (20-55); Microcytosis 1+; Platelet Estimate Decreased; Segmented Neutrophils 95 % (50-85); Total Cells Counted 100
[2021-04-13] MEDS: METOCLOPRAMIDE 10 MG/2 ML VIAL IV SCH ×4 (05:50→23:37)
[2021-04-13] MEDS: INSULIN REGULAR 100 UNIT/ML SUBCUT SCH ×4 (05:50→23:50)
[2021-04-13] MEDS: BUDESONIDE 0.5 MG/2 ML NEB RESP TX SCH ×2 (06:50→19:16)
[2021-04-13] MEDS: ARFORMOTEROL 15 MCG/2 ML NEB RESP TX SCH ×2 (06:50→19:16)
[2021-04-13] MEDS: CLORAZEPATE 7.5 MG TABLET PO SCH ×2 (09:16→20:33)
[2021-04-13] MEDS: LACTULOSE 20 GM/30 ML UDCUP PO SCH (09:17)
[2021-04-13] MEDS: METOPROLOL TARTRATE 50 MG TABLET PO SCH ×2 (09:17→20:33)
[2021-04-13] MEDS: CITALOPRAM 20 MG TABLET PO SCH (09:17)
[2021-04-13] MEDS: ASCORBIC ACID 500 MG TABLET PO SCH ×2 (09:17→20:33)
[2021-04-13] MEDS: lisinopriL 20 MG TABLET PO SCH (09:17)
[2021-04-13] MEDS: NIFEdipine 10 MG CAPSULE PO SCH ×3 (09:17→20:27)
[2021-04-13] MEDS: methylPREDNISolone SOD SUC 40 MG/1 ML VIAL IV SCH ×3 (09:18→17:55)
[2021-04-13] MEDS: FONDAPARINUX 2.5 MG/0.5 ML SYRINGE SUBCUT SCH (09:18)
[2021-04-13] MEDS: FUROSEMIDE 40 MG/4 ML VIAL IV SCH (09:19)
[2021-04-13] MEDS: PANTOPRAZOLE 40 MG VIAL IV SCH ×2 (09:19→20:33)
[2021-04-13] MEDS: FLUTICASONE 50 MCG NASAL SPRAY 16 GM BOTTLE BOTH NARES SCH ×2 (09:20→20:33)
[2021-04-13] MEDS: BUDESONIDE/FORMOTEROL 160-4.5 INHALER 6 GM INH SCH ×2 (09:20→20:33)
[2021-04-13] MEDS: MENTHOL/ZINC OXIDE OINT 71 GM JAR TOP SCH ×2 (09:20→20:33)
[2021-04-13] MEDS: cycloSPORINE OPH EMUL 1 VIAL BOTH EYES SCH ×2 (09:20→20:34)
[2021-04-13] MEDS: CEFTAROLINE 600 MG in SODIUM CHLORIDE 0.9% 100 ML IV SCH ×2 (11:30→22:52)
[2021-04-13] MEDS: SIMVASTATIN 20 MG TABLET PO SCH (20:33)
[2021-04-13] MEDS: MIDAZOLAM 100 MG in SODIUM CHLORIDE 0.9% 80 ML IV PRN (22:52)
[2021-04-14] MEDS: methylPREDNISolone SOD SUC 40 MG/1 ML VIAL IV SCH ×3 (02:04→17:46)
[2021-04-14 04:05] LABS: ABG Base Excess 1.8 MMOL/L (-2.5-2.5); ABG Oxygen Saturation 96.8 % (95-100); ABG PCO2 39.9 MM HG (35-48); ABG PH 7.426 (7.35-7.45); ABG PO2 83.4 MM HG (80-95); ABG TCO2 24.3 MMOL/L (23-27)
[2021-04-14 04:28] LABS: Basophils % 0.2 % (0.0-0.8); Hematocrit 24.8 VOL% (35.7-47.0); Hemoglobin 8.6 GM/DL (12.0-16.0); Immature Granulocytes % 3.4 %; Immature Granulocytes Absolute 0.21 #; Lymphocytes # 0.1 10*3/uL (1.4-4.0); Lymphocytes % 1.8 % (21.3-54.2); Mean Corpuscular HGB Conc 34.7 GM/DL (32-36); Mean Corpuscular Volume 85.5 FL (87-102); Mean Platelet Volume 10.5 FL (9.6-12.0); Neutrophils % 92.6 % (38.7-73.9); Platelet Count 120 T/CUMM (130-400); Red Cell Distribution Width 13.1 % (9.3-17.3); White Blood Count 6.1 T/CUMM (4-12)
[2021-04-14 04:36] LABS: Calcium 8.2 MG/DL (8.5-10.1); Potassium 4.5 MMOL/L (3.5-5.1)
[2021-04-14 04:55] LABS: Band Neutrophils 3 % (0-10); Hypochromia 1+; Lymphocytes 2 % (20-55); Microcytosis 1+; Platelet Estimate Normal; Segmented Neutrophils 94 % (50-85); Total Cells Counted 100
[2021-04-14] MEDS: METOCLOPRAMIDE 10 MG/2 ML VIAL IV SCH ×3 (05:51→17:47)
[2021-04-14] MEDS: INSULIN REGULAR 100 UNIT/ML SUBCUT SCH ×3 (06:01→17:46)
[2021-04-14] MEDS: BUDESONIDE 0.5 MG/2 ML NEB RESP TX SCH ×2 (06:50→19:25)
[2021-04-14] MEDS: ARFORMOTEROL 15 MCG/2 ML NEB RESP TX SCH ×2 (06:50→19:25)
[2021-04-14] MEDS: LACTULOSE 20 GM/30 ML UDCUP PO SCH (08:47)
[2021-04-14] MEDS: ASCORBIC ACID 500 MG TABLET PO SCH ×2 (08:48→21:02)
[2021-04-14] MEDS: FONDAPARINUX 2.5 MG/0.5 ML SYRINGE SUBCUT SCH (08:48)
[2021-04-14] MEDS: CLORAZEPATE 7.5 MG TABLET PO SCH ×2 (08:49→21:02)
[2021-04-14] MEDS: CITALOPRAM 20 MG TABLET PO SCH (08:49)
[2021-04-14] MEDS: METOPROLOL TARTRATE 50 MG TABLET PO SCH ×2 (08:49→21:01)
[2021-04-14] MEDS: PANTOPRAZOLE 40 MG VIAL IV SCH (08:50)
[2021-04-14] MEDS: FUROSEMIDE 40 MG/4 ML VIAL IV SCH (08:50)
[2021-04-14] MEDS: MENTHOL/ZINC OXIDE OINT 71 GM JAR TOP SCH ×2 (08:51→21:01)
[2021-04-14] MEDS: FLUTICASONE 50 MCG NASAL SPRAY 16 GM BOTTLE BOTH NARES SCH ×2 (08:51→21:01)
[2021-04-14] MEDS: BUDESONIDE/FORMOTEROL 160-4.5 INHALER 6 GM INH SCH ×2 (08:51→21:02)
[2021-04-14] MEDS: cycloSPORINE OPH EMUL 1 VIAL BOTH EYES SCH ×2 (08:53→21:02)
[2021-04-14] MEDS: lisinopriL 20 MG TABLET PO SCH (10:47)
[2021-04-14] MEDS: NIFEdipine 10 MG CAPSULE PO SCH ×3 (10:47→21:02)
[2021-04-14] MEDS: CEFTAROLINE 600 MG in SODIUM CHLORIDE 0.9% 100 ML IV SCH ×2 (12:05→22:52)
[2021-04-14] MEDS: MORPHINE 4 MG/1 ML VIAL IV PRN ×2 (12:06→21:02)
[2021-04-14] MEDS ORDERED: SODIUM CHLORIDE 0.9% 500 ML IV ONE (14:49)
[2021-04-14] MEDS: FAMOTIDINE 20 MG/2 ML VIAL IV SCH (21:01)
[2021-04-14] MEDS: SIMVASTATIN 20 MG TABLET PO SCH (21:02)
[2021-04-14] MEDS: MIDAZOLAM 100 MG in SODIUM CHLORIDE 0.9% 80 ML IV PRN (21:56)
[2021-04-15] MEDS: METOCLOPRAMIDE 10 MG/2 ML VIAL IV SCH ×4 (00:06→18:05)
[2021-04-15] MEDS: INSULIN REGULAR 100 UNIT/ML SUBCUT SCH ×4 (00:06→18:10)
[2021-04-15] MEDS: methylPREDNISolone SOD SUC 40 MG/1 ML VIAL IV SCH ×3 (01:32→18:00)
[2021-04-15 04:27] LABS: Hematocrit 22.1 VOL% (35.7-47.0); Hemoglobin 7.4 GM/DL (12.0-16.0); Immature Granulocytes % 1.9 %; Lymphocytes # 0.1 10*3/uL (1.4-4.0); Lymphocytes % 2.3 % (21.3-54.2); Mean Corpuscular HGB Conc 33.5 GM/DL (32-36); Mean Corpuscular Volume 88.8 FL (87-102); Mean Platelet Volume 10.8 FL (9.6-12.0); Monocytes % 1.9 % (1.7-12.7); Neutrophils % 93.9 % (38.7-73.9); Platelet Count 102 T/CUMM (130-400); Red Blood Count 2.49 MC/CUMM (3.8-5.5); Red Cell Distribution Width 13.2 % (9.3-17.3); White Blood Count 5.2 T/CUMM (4-12)
[2021-04-15 04:46] LABS: % Iron Saturation 28.2 % (18-50); Ferritin 1651.4 ng/mL (8-252)
[2021-04-15 04:50] LABS: Albumin 1.8 G/DL (3.4-5.0); Bilirubin,Total 0.5 MG/DL (0.20-1.00); Calcium 7.7 MG/DL (8.5-10.1); Osmolality,Calculated 299.7 MOS/KG (273-304); Potassium 4.7 MMOL/L (3.5-5.1); Total Protein 4.3 G/DL (6.4-8.2)
[2021-04-15 04:57] LABS: Folate 11.06 NG/ML (5.38-24.0)
[2021-04-15 06:44] LABS: Band Neutrophils 1 % (0-10); Hypochromia 1+; Lymphocytes 2 % (20-55); Microcytosis 1+; Ovalocytes Slight; Platelet Estimate Decreased; Segmented Neutrophils 96 % (50-85); Total Cells Counted 100
[2021-04-15] MEDS: BUDESONIDE 0.5 MG/2 ML NEB RESP TX SCH ×2 (06:57→18:23)
[2021-04-15] MEDS: ARFORMOTEROL 15 MCG/2 ML NEB RESP TX SCH ×2 (06:57→18:23)
[2021-04-15 08:31] LABS: ABG HCO3 24.2 MMOL/L (20-26); ABG PCO2 38.8 MM HG (35-48); ABG PH 7.403 (7.35-7.45)
[2021-04-15] MEDS: LACTULOSE 20 GM/30 ML UDCUP PO SCH (08:35)
[2021-04-15] MEDS: CLORAZEPATE 7.5 MG TABLET PO SCH ×2 (08:36→21:03)
[2021-04-15] MEDS: FUROSEMIDE 40 MG/4 ML VIAL IV SCH (08:36)
[2021-04-15] MEDS: METOPROLOL TARTRATE 50 MG TABLET PO SCH ×2 (08:37→21:03)
[2021-04-15] MEDS: MENTHOL/ZINC OXIDE OINT 71 GM JAR TOP SCH ×2 (08:37→21:04)
[2021-04-15] MEDS: CITALOPRAM 20 MG TABLET PO SCH (08:37)
[2021-04-15] MEDS: ASCORBIC ACID 500 MG TABLET PO SCH ×2 (08:37→21:03)
[2021-04-15] MEDS: FAMOTIDINE 20 MG/2 ML VIAL IV SCH ×2 (08:37→21:03)
[2021-04-15] MEDS: BUDESONIDE/FORMOTEROL 160-4.5 INHALER 6 GM INH SCH ×2 (08:38→21:04)
[2021-04-15] MEDS: cycloSPORINE OPH EMUL 1 VIAL BOTH EYES SCH ×2 (08:39→21:05)
[2021-04-15] MEDS ORDERED: SODIUM CHLORIDE 0.9% 1,000 ML IV PRN (09:19)
[2021-04-15] MEDS: CEFTAROLINE 600 MG in SODIUM CHLORIDE 0.9% 100 ML IV SCH (11:30)
[2021-04-15] MEDS: FLUTICASONE 50 MCG NASAL SPRAY 16 GM BOTTLE BOTH NARES SCH ×2 (12:44→21:04)
[2021-04-15] MEDS: SIMVASTATIN 20 MG TABLET PO SCH (21:03)
[2021-04-15 22:06] LABS: Hematocrit 27.1 VOL% (35.7-47.0)
[2021-04-15 22:08] LABS: Hemoglobin 9.2 GM/DL (12.0-16.0)
[2021-04-16] MEDS: METOCLOPRAMIDE 10 MG/2 ML VIAL IV SCH ×4 (00:09→18:07)
[2021-04-16] MEDS: methylPREDNISolone SOD SUC 40 MG/1 ML VIAL IV SCH ×3 (00:09→20:48)
[2021-04-16] MEDS: INSULIN REGULAR 100 UNIT/ML SUBCUT SCH ×4 (00:10→19:06)
[2021-04-16] MEDS: CEFTAROLINE 600 MG in SODIUM CHLORIDE 0.9% 100 ML IV SCH ×2 (00:10→11:09)
[2021-04-16 03:44] LABS: ABG Base Excess 1.3 MMOL/L (-2.5-2.5); ABG HCO3 25.5 MMOL/L (20-26); ABG Oxygen Saturation 96.7 % (95-100); ABG PCO2 37.9 MM HG (35-48); ABG PH 7.434 (7.35-7.45); ABG PO2 86.9 MM HG (80-95); ABG TCO2 23.4 MMOL/L (23-27)
[2021-04-16 03:52] LABS: Hematocrit 26.5 VOL% (35.7-47.0); Hemoglobin 8.9 GM/DL (12.0-16.0); Immature Granulocytes % 4.4 %; Immature Granulocytes Absolute 0.24 #; Lymphocytes # 0.1 10*3/uL (1.4-4.0); Mean Corpuscular HGB Conc 33.6 GM/DL (32-36); Mean Corpuscular Volume 87.7 FL (87-102); Mean Platelet Volume 10.6 FL (9.6-12.0); Neutrophils % 91.6 % (38.7-73.9); Platelet Count 110 T/CUMM (130-400); Red Blood Count 3.02 MC/CUMM (3.8-5.5); Red Cell Distribution Width 13.2 % (9.3-17.3); White Blood Count 5.5 T/CUMM (4-12)
[2021-04-16 04:08] LABS: Calcium 8.2 MG/DL (8.5-10.1); Osmolality,Calculated 296.8 MOS/KG (273-304); Potassium 4.6 MMOL/L (3.5-5.1)
[2021-04-16 04:13] LABS: Band Neutrophils 3 % (0-10); Hypochromia 1+; Lymphocytes 1 % (20-55); Microcytosis 1+; Segmented Neutrophils 94 % (50-85); Total Cells Counted 100
[2021-04-16] MEDS: ARFORMOTEROL 15 MCG/2 ML NEB RESP TX SCH ×2 (06:55→19:33)
[2021-04-16] MEDS: hydrALAZINE 20 MG/1 ML VIAL IV PRN ×2 (06:55→22:42)
[2021-04-16] MEDS: BUDESONIDE 0.5 MG/2 ML NEB RESP TX SCH ×2 (06:55→19:33)
[2021-04-16] MEDS: MORPHINE 4 MG/1 ML VIAL IV PRN ×2 (07:08→22:44)
[2021-04-16] MEDS: LACTULOSE 20 GM/30 ML UDCUP PO SCH (07:30)
[2021-04-16] MEDS: lisinopriL 20 MG TABLET PO SCH (07:30)
[2021-04-16] MEDS: ASCORBIC ACID 500 MG TABLET PO SCH ×2 (07:30→20:41)
[2021-04-16] MEDS: NIFEdipine 10 MG CAPSULE PO SCH ×3 (07:30→20:42)
[2021-04-16] MEDS: CITALOPRAM 20 MG TABLET PO SCH (07:30)
[2021-04-16] MEDS: METOPROLOL TARTRATE 50 MG TABLET PO SCH ×2 (07:30→20:41)
[2021-04-16] MEDS: FAMOTIDINE 20 MG/2 ML VIAL IV SCH ×2 (07:45→20:42)
[2021-04-16] MEDS: FUROSEMIDE 40 MG/4 ML VIAL IV SCH (07:45)
[2021-04-16] MEDS: BUDESONIDE/FORMOTEROL 160-4.5 INHALER 6 GM INH SCH ×2 (07:51→20:43)
[2021-04-16] MEDS ORDERED: chlordiazePOXIDE 10 MG CAPSULE PO SCH (09:00)
[2021-04-16] MEDS: FLUTICASONE 50 MCG NASAL SPRAY 16 GM BOTTLE BOTH NARES SCH ×2 (09:48→20:42)
[2021-04-16] MEDS: FONDAPARINUX 2.5 MG/0.5 ML SYRINGE SUBCUT SCH (11:08)
[2021-04-16] MEDS: MENTHOL/ZINC OXIDE OINT 71 GM JAR TOP SCH ×2 (11:08→20:42)
[2021-04-16] MEDS: cycloSPORINE OPH EMUL 1 VIAL BOTH EYES SCH ×2 (11:08→20:42)
[2021-04-16] MEDS ORDERED: chlordiazePOXIDE 10 MG CAPSULE PO PRN (11:15)
[2021-04-16 11:49] LABS: ABG Base Excess 0.6 MMOL/L (-2.5-2.5); ABG PCO2 37.7 MM HG (35-48); ABG PH 7.426 (7.35-7.45); ABG PO2 90.3 MM HG (80-95); ABG TCO2 22.2 MMOL/L (23-27)
[2021-04-16] MEDS: SIMVASTATIN 20 MG TABLET PO SCH (20:41)
[2021-04-17] MEDS: CEFTAROLINE 600 MG in SODIUM CHLORIDE 0.9% 100 ML IV SCH ×3 (00:41→23:23)
[2021-04-17] MEDS: INSULIN REGULAR 100 UNIT/ML SUBCUT SCH ×5 (00:41→23:22)
[2021-04-17] MEDS: METOCLOPRAMIDE 10 MG/2 ML VIAL IV SCH ×5 (00:42→23:22)
[2021-04-17 04:02] LABS: ABG HCO3 24.4 MMOL/L (20-26); ABG Oxygen Saturation 98.5 % (95-100); ABG PCO2 37.4 MM HG (35-48); ABG TCO2 22.1 MMOL/L (23-27)
[2021-04-17 04:06] LABS: Basophils % 0.1 % (0.0-0.8); Eosinophils % 0.3 % (0.00-10.9); Hematocrit 27.2 VOL% (35.7-47.0); Hemoglobin 9.5 GM/DL (12.0-16.0); Immature Granulocytes % 4.5 %; Immature Granulocytes Absolute 0.35 #; Lymphocytes # 0.2 10*3/uL (1.4-4.0); Lymphocytes % 1.9 % (21.3-54.2); Mean Corpuscular HGB Conc 34.9 GM/DL (32-36); Mean Corpuscular Volume 86.6 FL (87-102); Mean Platelet Volume 10.5 FL (9.6-12.0); Monocytes % 2.7 % (1.7-12.7); Neutrophils % 90.5 % (38.7-73.9); Platelet Count 118 T/CUMM (130-400); Red Blood Count 3.14 MC/CUMM (3.8-5.5); Red Cell Distribution Width 13.6 % (9.3-17.3); White Blood Count 7.8 T/CUMM (4-12)
[2021-04-17 04:21] LABS: Calcium 8.7 MG/DL (8.5-10.1); Osmolality,Calculated 298.8 MOS/KG (273-304); Potassium 4.4 MMOL/L (3.5-5.1)
[2021-04-17 04:28] LABS: Band Neutrophils 4 % (0-10); Hypochromia Slight; Lymphocytes 1 % (20-55); Microcytosis 1+; Ovalocytes Slight; Segmented Neutrophils 92 % (50-85); Total Cells Counted 100
[2021-04-17 04:29] LABS: Platelet Estimate Adequate
[2021-04-17] MEDS: BUDESONIDE 0.5 MG/2 ML NEB RESP TX SCH ×2 (07:05→19:35)
[2021-04-17] MEDS: ARFORMOTEROL 15 MCG/2 ML NEB RESP TX SCH ×2 (07:05→19:35)
[2021-04-17] MEDS: hydrALAZINE 20 MG/1 ML VIAL IV PRN (07:09)
[2021-04-17] MEDS: MORPHINE 4 MG/1 ML VIAL IV PRN ×2 (07:14→20:07)
[2021-04-17] MEDS: cycloSPORINE OPH EMUL 1 VIAL BOTH EYES SCH ×2 (08:05→21:16)
[2021-04-17] MEDS: BUDESONIDE/FORMOTEROL 160-4.5 INHALER 6 GM INH SCH ×2 (08:05→21:14)
[2021-04-17] MEDS: FLUTICASONE 50 MCG NASAL SPRAY 16 GM BOTTLE BOTH NARES SCH ×2 (08:05→21:43)
[2021-04-17] MEDS: CITALOPRAM 20 MG TABLET PO SCH (08:06)
[2021-04-17] MEDS: METOPROLOL TARTRATE 50 MG TABLET PO SCH ×2 (08:06→21:13)
[2021-04-17] MEDS: ASCORBIC ACID 500 MG TABLET PO SCH ×2 (08:06→21:13)
[2021-04-17] MEDS: lisinopriL 20 MG TABLET PO SCH (08:06)
[2021-04-17] MEDS: NIFEdipine 10 MG CAPSULE PO SCH ×3 (08:06→21:13)
[2021-04-17] MEDS: methylPREDNISolone SOD SUC 40 MG/1 ML VIAL IV SCH ×2 (08:07→21:16)
[2021-04-17] MEDS: FAMOTIDINE 20 MG/2 ML VIAL IV SCH ×2 (08:07→21:15)
[2021-04-17] MEDS: LACTULOSE 20 GM/30 ML UDCUP PO SCH (08:07)
[2021-04-17] MEDS: FUROSEMIDE 40 MG/4 ML VIAL IV SCH (08:07)
[2021-04-17] MEDS: FONDAPARINUX 2.5 MG/0.5 ML SYRINGE SUBCUT SCH (08:07)
[2021-04-17] MEDS: MENTHOL/ZINC OXIDE OINT 71 GM JAR TOP SCH ×2 (08:09→21:14)
[2021-04-17] MEDS: DEXMEDETOMIDINE 400 MCG in SODIUM CHLORIDE 0.9% 96 ML IV PRN (11:10)
[2021-04-17] MEDS ORDERED: INSULIN GLARGINE 100 UNIT/ML SUBCUT SCH (21:00)
[2021-04-17] MEDS: SIMVASTATIN 20 MG TABLET PO SCH (21:14)
[2021-04-17] MEDS: HYDROCORTISONE 2.5% RECTAL CREAM 30 GM TUBE TOP PRN (21:14)
[2021-04-18 04:23] LABS: ABG Base Excess -0.7 MMOL/L (-2.5-2.5); ABG HCO3 23.9 MMOL/L (20-26); ABG Oxygen Saturation 97.8 % (95-100); ABG PCO2 42.9 MM HG (35-48); ABG PH 7.368 (7.35-7.45); ABG TCO2 22.4 MMOL/L (23-27)
[2021-04-18] MEDS: DEXMEDETOMIDINE 400 MCG in SODIUM CHLORIDE 0.9% 96 ML IV PRN ×2 (04:31→16:28)
[2021-04-18 04:35] LABS: Basophils % 0.3 % (0.0-0.8); Eosinophils % 0.1 % (0.00-10.9); Hematocrit 30.1 VOL% (35.7-47.0); Hemoglobin 10.5 GM/DL (12.0-16.0); Immature Granulocytes % 2.1 %; Immature Granulocytes Absolute 0.24 #; Lymphocytes # 0.2 10*3/uL (1.4-4.0); Lymphocytes % 1.7 % (21.3-54.2); Mean Corpuscular HGB Conc 34.9 GM/DL (32-36); Mean Corpuscular Volume 85.8 FL (87-102); Mean Platelet Volume 10.6 FL (9.6-12.0); Monocytes % 2.3 % (1.7-12.7); Neutrophils % 93.5 % (38.7-73.9); Platelet Count 156 T/CUMM (130-400); Red Blood Count 3.51 MC/CUMM (3.8-5.5); Red Cell Distribution Width 13.7 % (9.3-17.3); White Blood Count 11.7 T/CUMM (4-12)
[2021-04-18 04:58] LABS: Calcium 8.8 MG/DL (8.5-10.1); Osmolality,Calculated 295.2 MOS/KG (273-304); Potassium 4.3 MMOL/L (3.5-5.1)
[2021-04-18 05:11] LABS: Band Neutrophils 3 % (0-10); Lymphocytes 3 % (20-55); Segmented Neutrophils 92 % (50-85); Total Cells Counted 100
[2021-04-18 05:12] LABS: Hypochromia Slight; Platelet Estimate Normal
[2021-04-18] MEDS: INSULIN REGULAR 100 UNIT/ML SUBCUT SCH ×3 (05:54→17:38)
[2021-04-18] MEDS: METOCLOPRAMIDE 10 MG/2 ML VIAL IV SCH ×3 (05:54→17:38)
[2021-04-18] MEDS: BUDESONIDE 0.5 MG/2 ML NEB RESP TX SCH ×2 (06:50→19:43)
[2021-04-18] MEDS: ARFORMOTEROL 15 MCG/2 ML NEB RESP TX SCH ×2 (06:50→19:43)
[2021-04-18] MEDS: FAMOTIDINE 20 MG/2 ML VIAL IV SCH ×2 (08:25→20:48)
[2021-04-18] MEDS: FUROSEMIDE 40 MG/4 ML VIAL IV SCH (08:26)
[2021-04-18] MEDS: ASCORBIC ACID 500 MG TABLET PO SCH ×2 (08:26→20:50)
[2021-04-18] MEDS: CITALOPRAM 20 MG TABLET PO SCH (08:26)
[2021-04-18] MEDS: FONDAPARINUX 2.5 MG/0.5 ML SYRINGE SUBCUT SCH (08:26)
[2021-04-18] MEDS: LACTULOSE 20 GM/30 ML UDCUP PO SCH (08:26)
[2021-04-18] MEDS: lisinopriL 20 MG TABLET PO SCH (08:27)
[2021-04-18] MEDS: METOPROLOL TARTRATE 50 MG TABLET PO SCH ×2 (08:27→20:50)
[2021-04-18] MEDS: MENTHOL/ZINC OXIDE OINT 71 GM JAR TOP SCH ×2 (08:28→20:48)
[2021-04-18] MEDS: methylPREDNISolone SOD SUC 40 MG/1 ML VIAL IV SCH ×2 (08:28→20:48)
[2021-04-18] MEDS: NIFEdipine 10 MG CAPSULE PO SCH ×3 (08:28→20:50)
[2021-04-18] MEDS: cycloSPORINE OPH EMUL 1 VIAL BOTH EYES SCH ×2 (08:28→20:51)
[2021-04-18] MEDS: FLUTICASONE 50 MCG NASAL SPRAY 16 GM BOTTLE BOTH NARES SCH ×2 (08:29→20:51)
[2021-04-18] MEDS: BUDESONIDE/FORMOTEROL 160-4.5 INHALER 6 GM INH SCH ×2 (08:29→20:47)
[2021-04-18] MEDS: CEFTAROLINE 600 MG in SODIUM CHLORIDE 0.9% 100 ML IV SCH (10:26)
[2021-04-18] MEDS: INSULIN GLARGINE 100 UNIT/ML SUBCUT SCH (20:49)
[2021-04-18] MEDS: SIMVASTATIN 20 MG TABLET PO SCH (20:50)
[2021-04-19] MEDS: METOCLOPRAMIDE 10 MG/2 ML VIAL IV SCH ×5 (00:34→23:52)
[2021-04-19] MEDS: INSULIN REGULAR 100 UNIT/ML SUBCUT SCH ×5 (00:34→23:52)
[2021-04-19 03:40] LABS: ABG Base Excess 3.1 MMOL/L (-2.5-2.5); ABG HCO3 27.2 MMOL/L (20-26); ABG Oxygen Saturation 98.2 % (95-100); ABG PCO2 37.8 MM HG (35-48); ABG PH 7.461 (7.35-7.45); ABG TCO2 24.5 MMOL/L (23-27)
[2021-04-19 03:44] LABS: Basophils % 0.3 % (0.0-0.8); Eosinophils % 0.3 % (0.00-10.9); Hematocrit 27.9 VOL% (35.7-47.0); Hemoglobin 9.3 GM/DL (12.0-16.0); Immature Granulocytes % 1.1 %; Immature Granulocytes Absolute 0.08 #; Lymphocytes # 0.2 10*3/uL (1.4-4.0); Mean Corpuscular HGB Conc 33.3 GM/DL (32-36); Mean Corpuscular Volume 86.1 FL (87-102); Mean Platelet Volume 10.3 FL (9.6-12.0); Monocytes % 1.8 % (1.7-12.7); Neutrophils % 94.5 % (38.7-73.9); Platelet Count 116 T/CUMM (130-400); Red Blood Count 3.24 MC/CUMM (3.8-5.5); Red Cell Distribution Width 13.5 % (9.3-17.3); White Blood Count 7.6 T/CUMM (4-12)
[2021-04-19 04:10] LABS: Band Neutrophils 5 % (0-10); Lymphocytes 2 % (20-55); Segmented Neutrophils 92 % (50-85); Total Cells Counted 100
[2021-04-19 04:11] LABS: Hypochromia 1+; Microcytosis 1+; Ovalocytes Slight; Platelet Estimate Decreased; Polychromasia Slight
[2021-04-19 04:13] LABS: Calcium 8.4 MG/DL (8.5-10.1); Osmolality,Calculated 300.5 MOS/KG (273-304); Potassium 4.5 MMOL/L (3.5-5.1)
[2021-04-19] MEDS: ARFORMOTEROL 15 MCG/2 ML NEB RESP TX SCH ×2 (07:38→19:15)
[2021-04-19] MEDS: BUDESONIDE 0.5 MG/2 ML NEB RESP TX SCH ×2 (07:38→19:15)
[2021-04-19] MEDS: DEXMEDETOMIDINE 400 MCG in SODIUM CHLORIDE 0.9% 96 ML IV PRN ×2 (08:16→21:59)
[2021-04-19] MEDS: FONDAPARINUX 2.5 MG/0.5 ML SYRINGE SUBCUT SCH (08:17)
[2021-04-19] MEDS: LACTULOSE 20 GM/30 ML UDCUP PO SCH (08:18)
[2021-04-19] MEDS: NIFEdipine 10 MG CAPSULE PO SCH ×3 (08:18→21:15)
[2021-04-19] MEDS: CITALOPRAM 20 MG TABLET PO SCH (08:18)
[2021-04-19] MEDS: ASCORBIC ACID 500 MG TABLET PO SCH ×2 (08:18→21:15)
[2021-04-19] MEDS: METOPROLOL TARTRATE 50 MG TABLET PO SCH ×2 (08:18→21:15)
[2021-04-19] MEDS: lisinopriL 20 MG TABLET PO SCH (08:18)
[2021-04-19] MEDS: FAMOTIDINE 20 MG/2 ML VIAL IV SCH ×2 (08:19→21:14)
[2021-04-19] MEDS: FUROSEMIDE 40 MG/4 ML VIAL IV SCH (08:19)
[2021-04-19] MEDS: methylPREDNISolone SOD SUC 40 MG/1 ML VIAL IV SCH (08:20)
[2021-04-19] MEDS: FLUTICASONE 50 MCG NASAL SPRAY 16 GM BOTTLE BOTH NARES SCH ×2 (08:20→21:13)
[2021-04-19] MEDS: BUDESONIDE/FORMOTEROL 160-4.5 INHALER 6 GM INH SCH ×2 (08:21→21:15)
[2021-04-19] MEDS: MENTHOL/ZINC OXIDE OINT 71 GM JAR TOP SCH ×2 (08:21→21:12)
[2021-04-19] MEDS: cycloSPORINE OPH EMUL 1 VIAL BOTH EYES SCH ×2 (08:22→21:13)
[2021-04-19] MEDS: MORPHINE 4 MG/1 ML VIAL IV PRN ×2 (11:11→14:30)
[2021-04-19] MEDS ORDERED: FUROSEMIDE 40 MG/4 ML VIAL IV ONE (13:34)
[2021-04-19] MEDS ORDERED: ALBUTEROL/IPRATROPIUM 3 ML NEB RESP TX ONE (13:34)
[2021-04-19] MEDS ORDERED: ADENOSINE 6 MG/2 ML VIAL ONE ×2 (14:10→14:11)
[2021-04-19] MEDS ORDERED: SODIUM CHLORIDE 0.9% 500 ML IV ONE (14:21)
[2021-04-19 14:44] LABS: Basophils % 0.2 % (0.0-0.8); Eosinophils % 0.2 % (0.00-10.9); Hematocrit 29.1 VOL% (35.7-47.0); Immature Granulocytes % 0.5 %; Immature Granulocytes Absolute 0.03 #; Lymphocytes # 0.1 10*3/uL (1.4-4.0); Lymphocytes % 1.8 % (21.3-54.2); Mean Corpuscular HGB Conc 34.4 GM/DL (32-36); Mean Corpuscular Volume 86.4 FL (87-102); Mean Platelet Volume 10.2 FL (9.6-12.0); Monocytes % 1.5 % (1.7-12.7); Neutrophils % 95.8 % (38.7-73.9); Platelet Count 119 T/CUMM (130-400); Red Blood Count 3.37 MC/CUMM (3.8-5.5); Red Cell Distribution Width 13.9 % (9.3-17.3); White Blood Count 6.1 T/CUMM (4-12)
[2021-04-19 15:07] LABS: Band Neutrophils 44 % (0-10); Eosinophils 1 % (0-10); Lymphocytes 1 % (20-55); Segmented Neutrophils 53 % (50-85); Total Cells Counted 100
[2021-04-19] MEDS: PHENYLEPHRINE DRIP 40 MG/250 ML PREMIX IV PRN (15:07)
[2021-04-19 15:08] LABS: Anisocytosis 2+
[2021-04-19 15:09] LABS: Microcytosis 1+; Platelet Estimate Adequate; Tear Drop Cells 1+; Toxic Granulation 1+
[2021-04-19 15:39] LABS: Calcium 8.5 MG/DL (8.5-10.1); Potassium 3.5 MMOL/L (3.5-5.1)
[2021-04-19] MEDS: MAGNESIUM SULF RIDER 2 GM/50 ML PREMIX IV PRN (15:46)
[2021-04-19] MEDS: POTASSIUM CHLORIDE 20 MEQ TABLET PO PRN ×2 (16:00→18:00)
[2021-04-19] MEDS: INSULIN GLARGINE 100 UNIT/ML SUBCUT SCH (21:13)
[2021-04-19] MEDS: SIMVASTATIN 20 MG TABLET PO SCH (21:15)
[2021-04-20 04:16] LABS: Basophils % 0.3 % (0.0-0.8); Eosinophils # 0.1 10*3/uL (0.0-0.87); Eosinophils % 0.7 % (0.00-10.9); Hematocrit 26.7 VOL% (35.7-47.0); Hemoglobin 9.1 GM/DL (12.0-16.0); Immature Granulocytes % 1.5 %; Immature Granulocytes Absolute 0.18 #; Lymphocytes # 0.4 10*3/uL (1.4-4.0); Lymphocytes % 3.6 % (21.3-54.2); Mean Corpuscular HGB Conc 34.1 GM/DL (32-36); Mean Corpuscular Volume 87.5 FL (87-102); Mean Platelet Volume 10.7 FL (9.6-12.0); Monocytes % 1.5 % (1.7-12.7); NRBC # 0.03 10*3/uL; Neutrophils % 92.4 % (38.7-73.9); Platelet Count 135 T/CUMM (130-400); Red Blood Count 3.05 MC/CUMM (3.8-5.5); Red Cell Distribution Width 14.1 % (9.3-17.3); White Blood Count 12.3 T/CUMM (4-12)
[2021-04-20] MEDS: PHENYLEPHRINE DRIP 40 MG/250 ML PREMIX IV PRN ×2 (04:29→13:19)
[2021-04-20 04:38] LABS: Band Neutrophils 9 % (0-10); Eosinophils 1 % (0-10); Lymphocytes 1 % (20-55); Metamyelocytes 4 %; Microcytosis 1+; Ovalocytes Slight; Segmented Neutrophils 85 % (50-85); Total Cells Counted 100
[2021-04-20 04:39] LABS: Calcium 8.6 MG/DL (8.5-10.1); Osmolality,Calculated 304.8 MOS/KG (273-304); Platelet Estimate Adequate; Potassium 3.9 MMOL/L (3.5-5.1)
[2021-04-20 04:44] LABS: ABG HCO3 23.7 MMOL/L (20-26); ABG Oxygen Saturation 98.1 % (95-100); ABG PCO2 39.4 MM HG (35-48); ABG PH 7.397 (7.35-7.45); ABG PO2 133.4 MM HG (80-95); ABG TCO2 24.9 MMOL/L (23-27)
[2021-04-20] MEDS: INSULIN REGULAR 100 UNIT/ML SUBCUT SCH ×4 (06:18→23:37)
[2021-04-20] MEDS: METOCLOPRAMIDE 10 MG/2 ML VIAL IV SCH ×4 (06:19→23:36)
[2021-04-20] MEDS: ARFORMOTEROL 15 MCG/2 ML NEB RESP TX SCH ×2 (07:43→18:52)
[2021-04-20] MEDS: BUDESONIDE 0.5 MG/2 ML NEB RESP TX SCH ×2 (07:43→18:52)
[2021-04-20] MEDS: lisinopriL 20 MG TABLET PO SCH (08:40)
[2021-04-20] MEDS: NIFEdipine 10 MG CAPSULE PO SCH ×3 (08:40→20:44)
[2021-04-20] MEDS: FONDAPARINUX 2.5 MG/0.5 ML SYRINGE SUBCUT SCH (08:40)
[2021-04-20] MEDS: LACTULOSE 20 GM/30 ML UDCUP PO SCH (08:40)
[2021-04-20] MEDS: METOPROLOL TARTRATE 50 MG TABLET PO SCH ×2 (08:41→20:44)
[2021-04-20] MEDS: CITALOPRAM 20 MG TABLET PO SCH (08:41)
[2021-04-20] MEDS: ASCORBIC ACID 500 MG TABLET PO SCH ×2 (08:41→20:44)
[2021-04-20] MEDS: FAMOTIDINE 20 MG/2 ML VIAL IV SCH ×2 (08:42→20:45)
[2021-04-20] MEDS: FLUTICASONE 50 MCG NASAL SPRAY 16 GM BOTTLE BOTH NARES SCH ×2 (08:42→20:46)
[2021-04-20] MEDS: BUDESONIDE/FORMOTEROL 160-4.5 INHALER 6 GM INH SCH ×2 (08:42→20:46)
[2021-04-20] MEDS: MENTHOL/ZINC OXIDE OINT 71 GM JAR TOP SCH ×2 (08:42→20:45)
[2021-04-20] MEDS: cycloSPORINE OPH EMUL 1 VIAL BOTH EYES SCH ×2 (08:43→20:46)
[2021-04-20] MEDS ORDERED: predniSONE 20 MG TABLET PO SCH (09:00)
[2021-04-20] MEDS: DEXMEDETOMIDINE 400 MCG in SODIUM CHLORIDE 0.9% 96 ML IV PRN ×2 (10:56→23:20)
[2021-04-20] MEDS: DEXAMETHASONE 4 MG/1 ML VIAL IV SCH ×2 (13:07→23:37)
[2021-04-20] MEDS: INSULIN GLARGINE 100 UNIT/ML SUBCUT SCH (20:43)
[2021-04-20] MEDS: SIMVASTATIN 20 MG TABLET PO SCH (20:45)
[2021-04-21] MEDS: PHENYLEPHRINE DRIP 40 MG/250 ML PREMIX IV PRN (00:18)
[2021-04-21 04:06] LABS: Basophils % 0.2 % (0.0-0.8); Hematocrit 23.5 VOL% (35.7-47.0); Immature Granulocytes Absolute 0.13 #; Lymphocytes # 0.2 10*3/uL (1.4-4.0); Lymphocytes % 2.6 % (21.3-54.2); Mean Corpuscular Volume 87.7 FL (87-102); Mean Platelet Volume 10.5 FL (9.6-12.0); Monocytes % 1.9 % (1.7-12.7); Neutrophils % 93.3 % (38.7-73.9); Platelet Count 107 T/CUMM (130-400); Red Blood Count 2.68 MC/CUMM (3.8-5.5); Red Cell Distribution Width 14.3 % (9.3-17.3); White Blood Count 6.5 T/CUMM (4-12)
[2021-04-21 04:17] LABS: Partial Thromboplastin Time 26.5 SECS (23.8-32.1)
[2021-04-21 04:20] LABS: Calcium 8.8 MG/DL (8.5-10.1); Osmolality,Calculated 302.3 MOS/KG (273-304); Potassium 4.6 MMOL/L (3.5-5.1)
[2021-04-21 04:27] LABS: Band Neutrophils 7 % (0-10); Hypochromia 1+; Lymphocytes 4 % (20-55); Microcytosis 1+; Promyelocytes 1 %; Segmented Neutrophils 87 % (50-85); Total Cells Counted 100
[2021-04-21 04:28] LABS: Ovalocytes Slight; Platelet Estimate Decreased
[2021-04-21 04:28] LABS: Arterial Base Excess iSTAT 1 MMOL/L (-2.5-2.5); Arterial Bicarbonate iSTAT 25.9 MMOL/L (20-26); Arterial O2 Saturation iSTAT 99 % (95-100); Arterial PCO2 iSTAT 43 MM HG (35-48); Arterial PO2 iSTAT 168 MM HG (80-95); Arterial Total CO2 iSTAT 27 MMO/L (23-27)
[2021-04-21] MEDS: INSULIN REGULAR 100 UNIT/ML SUBCUT SCH ×3 (06:10→18:20)
[2021-04-21] MEDS: METOCLOPRAMIDE 10 MG/2 ML VIAL IV SCH ×3 (06:15→18:20)
[2021-04-21] MEDS: ARFORMOTEROL 15 MCG/2 ML NEB RESP TX SCH ×2 (06:57→18:48)
[2021-04-21] MEDS: BUDESONIDE 0.5 MG/2 ML NEB RESP TX SCH ×2 (06:57→18:48)
[2021-04-21] MEDS: LACTULOSE 20 GM/30 ML UDCUP PO SCH (08:46)
[2021-04-21] MEDS: ASCORBIC ACID 500 MG TABLET PO SCH ×2 (08:46→20:58)
[2021-04-21] MEDS: FAMOTIDINE 20 MG/2 ML VIAL IV SCH ×2 (08:46→20:58)
[2021-04-21] MEDS: CITALOPRAM 20 MG TABLET PO SCH (08:46)
[2021-04-21] MEDS: METOPROLOL TARTRATE 50 MG TABLET PO SCH (08:48)
[2021-04-21] MEDS: FONDAPARINUX 2.5 MG/0.5 ML SYRINGE SUBCUT SCH (08:48)
[2021-04-21] MEDS: NIFEdipine 10 MG CAPSULE PO SCH (08:49)
[2021-04-21] MEDS: lisinopriL 20 MG TABLET PO SCH (08:49)
[2021-04-21] MEDS: BUDESONIDE/FORMOTEROL 160-4.5 INHALER 6 GM INH SCH ×2 (08:50→20:59)
[2021-04-21] MEDS: MENTHOL/ZINC OXIDE OINT 71 GM JAR TOP SCH ×2 (08:51→20:57)
[2021-04-21] MEDS: HYDROCORTISONE 2.5% RECTAL CREAM 30 GM TUBE TOP PRN (08:51)
[2021-04-21] MEDS: FLUTICASONE 50 MCG NASAL SPRAY 16 GM BOTTLE BOTH NARES SCH ×2 (08:51→22:04)
[2021-04-21] MEDS: cycloSPORINE OPH EMUL 1 VIAL BOTH EYES SCH ×2 (08:58→20:57)
[2021-04-21] MEDS: DEXAMETHASONE 4 MG/1 ML VIAL IV SCH (11:09)
[2021-04-21] MEDS ORDERED: LIDOCAINE 1%/EPI INJ 20 ML VIAL ONE (12:12)
[2021-04-21] MEDS ORDERED: VECURONIUM 10 MG VIAL IV ONE (12:43)
[2021-04-21] MEDS ORDERED: MIDAZOLAM 10 MG/2 ML VIAL ONE (12:46)
[2021-04-21] MEDS ORDERED: PHENYLEPHRINE 1 MG/10 ML SYRINGE IV ONE (13:27)
[2021-04-21] MEDS ORDERED: SEVOFLURANE 1 UNIT/15 MINUTE INH ONE (13:42)
[2021-04-21] MEDS: DEXMEDETOMIDINE 400 MCG in SODIUM CHLORIDE 0.9% 96 ML IV PRN (15:36)
[2021-04-21 18:48] LABS: Hematocrit 22.1 VOL% (35.7-47.0); Hemoglobin 7.3 GM/DL (12.0-16.0); Immature Granulocytes % 1.5 %; Immature Granulocytes Absolute 0.03 #; Lymphocytes # 0.1 10*3/uL (1.4-4.0); Lymphocytes % 6.2 % (21.3-54.2); Mean Corpuscular Volume 90.6 FL (87-102); Mean Platelet Volume 10.6 FL (9.6-12.0); Monocytes % 4.1 % (1.7-12.7); Neutrophils % 88.2 % (38.7-73.9); Platelet Count 69 T/CUMM (130-400); Red Blood Count 2.44 MC/CUMM (3.8-5.5); Red Cell Distribution Width 14.2 % (9.3-17.3)
[2021-04-21 19:19] LABS: Band Neutrophils 2 % (0-10); Lymphocytes 6 % (20-55); Platelet Estimate Decreased; Promyelocytes 1 %; Segmented Neutrophils 88 % (50-85); Total Cells Counted 100
[2021-04-21 19:47] LABS: Hematocrit 23.4 VOL% (35.7-47.0); Hemoglobin 7.7 GM/DL (12.0-16.0); Immature Granulocytes % 7.1 %; Immature Granulocytes Absolute 0.13 #; Lymphocytes # 0.1 10*3/uL (1.4-4.0); Lymphocytes % 6.6 % (21.3-54.2); Mean Corpuscular HGB Conc 32.9 GM/DL (32-36); Mean Corpuscular Volume 91.4 FL (87-102); Mean Platelet Volume 11.1 FL (9.6-12.0); Monocytes % 3.3 % (1.7-12.7); Platelet Count 69 T/CUMM (130-400); Red Blood Count 2.56 MC/CUMM (3.8-5.5); Red Cell Distribution Width 14.2 % (9.3-17.3); White Blood Count 1.8 T/CUMM (4-12)
[2021-04-21] MEDS: SIMVASTATIN 20 MG TABLET PO SCH (20:58)
[2021-04-21] MEDS: INSULIN GLARGINE 100 UNIT/ML SUBCUT SCH (20:58)
[2021-04-21] MEDS ORDERED: SODIUM CHLORIDE 0.9% 1,000 ML IV PRN (21:47)
[2021-04-22] MEDS: METOCLOPRAMIDE 10 MG/2 ML VIAL IV SCH ×4 (00:05→17:48)
[2021-04-22] MEDS: DEXAMETHASONE 4 MG/1 ML VIAL IV SCH ×3 (00:05→23:36)
[2021-04-22] MEDS: INSULIN REGULAR 100 UNIT/ML SUBCUT SCH ×5 (00:08→23:39)
[2021-04-22] MEDS: MORPHINE 2 MG/1 ML SYRINGE IV PRN ×2 (03:12→08:36)
[2021-04-22] MEDS: DEXMEDETOMIDINE 400 MCG in SODIUM CHLORIDE 0.9% 96 ML IV PRN ×2 (03:21→17:19)
[2021-04-22 04:50] LABS: Basophils % 0.3 % (0.0-0.8); Eosinophils % 0.3 % (0.00-10.9); Hematocrit 31.8 VOL% (35.7-47.0); Immature Granulocytes % 3.6 %; Immature Granulocytes Absolute 0.11 #; Lymphocytes # 0.1 10*3/uL (1.4-4.0); Lymphocytes % 4.3 % (21.3-54.2); Mean Corpuscular HGB Conc 33.6 GM/DL (32-36); Mean Corpuscular Volume 90.1 FL (87-102); Mean Platelet Volume 10.9 FL (9.6-12.0); Monocytes % 3.6 % (1.7-12.7); Neutrophils % 87.9 % (38.7-73.9); Red Cell Distribution Width 14.1 % (9.3-17.3)
[2021-04-22 04:54] LABS: Red Blood Count 3.53 MC/CUMM (3.8-5.5)
[2021-04-22 04:55] LABS: Hemoglobin 10.7 GM/DL (12.0-16.0); Platelet Count 80 T/CUMM (130-400)
[2021-04-22 05:09] LABS: Calcium 8.9 MG/DL (8.5-10.1); Osmolality,Calculated 306.1 MOS/KG (273-304); Potassium 4.7 MMOL/L (3.5-5.1)
[2021-04-22 05:12] LABS: Band Neutrophils 7 % (0-10); Lymphocytes 4 % (20-55); Nucleated Red Blood Cells 1 (0-5); Segmented Neutrophils 86 % (50-85); Total Cells Counted 100
[2021-04-22 05:13] LABS: Hypochromia Slight; Microcytosis 1+; Ovalocytes Slight; Platelet Estimate Decreased
[2021-04-22 05:22] LABS: Arterial Base Excess iSTAT -4 MMOL/L (-2.5-2.5); Arterial Bicarbonate iSTAT 23.7 MMOL/L (20-26); Arterial PCO2 iSTAT 49 MM HG (35-48); Arterial Total CO2 iSTAT 25 MMO/L (23-27); Arterial pH iSTAT 7.295 (7.35-7.45)
[2021-04-22 05:30] LABS: Arterial Base Excess iSTAT -3 MMOL/L (-2.5-2.5); Arterial Bicarbonate iSTAT 23.5 MMOL/L (20-26); Arterial O2 Saturation iSTAT 97 % (95-100); Arterial PCO2 iSTAT 49 MM HG (35-48); Arterial PO2 iSTAT 105 MM HG (80-95); Arterial Total CO2 iSTAT 25 MMO/L (23-27); Arterial pH iSTAT 7.294 (7.35-7.45)
[2021-04-22] MEDS: BUDESONIDE 0.5 MG/2 ML NEB RESP TX SCH ×2 (06:50→19:48)
[2021-04-22] MEDS: ARFORMOTEROL 15 MCG/2 ML NEB RESP TX SCH ×2 (06:50→19:48)
[2021-04-22] MEDS: BUDESONIDE/FORMOTEROL 160-4.5 INHALER 6 GM INH SCH ×2 (08:31→20:17)
[2021-04-22] MEDS: MENTHOL/ZINC OXIDE OINT 71 GM JAR TOP SCH ×2 (08:31→20:16)
[2021-04-22] MEDS: FLUTICASONE 50 MCG NASAL SPRAY 16 GM BOTTLE BOTH NARES SCH ×2 (08:31→20:16)
[2021-04-22] MEDS: FONDAPARINUX 2.5 MG/0.5 ML SYRINGE SUBCUT SCH (08:32)
[2021-04-22] MEDS: CITALOPRAM 20 MG TABLET PO SCH (08:32)
[2021-04-22] MEDS: cycloSPORINE OPH EMUL 1 VIAL BOTH EYES SCH ×2 (08:32→20:15)
[2021-04-22] MEDS: ASCORBIC ACID 500 MG TABLET PO SCH ×2 (08:33→20:16)
[2021-04-22] MEDS: LACTULOSE 20 GM/30 ML UDCUP PO SCH (08:33)
[2021-04-22] MEDS: FAMOTIDINE 20 MG/2 ML VIAL IV SCH ×2 (08:33→20:15)
[2021-04-22] MEDS: METOPROLOL TARTRATE 50 MG TABLET PO SCH ×2 (09:09→20:17)
[2021-04-22] MEDS: METOPROLOL TARTRATE 5 MG/5 ML VIAL IV PRN (09:39)
[2021-04-22] MEDS ORDERED: lisinopriL 20 MG TABLET PO ONE (10:51)
[2021-04-22] MEDS: INSULIN GLARGINE 100 UNIT/ML SUBCUT SCH (20:15)
[2021-04-22] MEDS: OLANZapine 5 MG TABLET PO SCH (20:16)
[2021-04-22] MEDS: SIMVASTATIN 20 MG TABLET PO SCH (20:16)
[2021-04-22] MEDS: PHENYLEPHRINE DRIP 40 MG/250 ML PREMIX IV PRN (21:09)
[2021-04-23] MEDS: MORPHINE 2 MG/1 ML SYRINGE IV PRN ×3 (02:06→14:48)
[2021-04-23 03:14] LABS: ABG Base Excess -5.6 MMOL/L (-2.5-2.5); ABG HCO3 22.5 MMOL/L (20-26); ABG Oxygen Saturation 95.6 % (95-100); ABG PCO2 54.6 MM HG (35-48); ABG PH 7.232 (7.35-7.45); ABG PO2 84.8 MM HG (80-95); ABG TCO2 24.1 MMOL/L (23-27)
[2021-04-23 04:21] LABS: Calcium 9.1 MG/DL (8.5-10.1); Osmolality,Calculated 302.4 MOS/KG (273-304); Potassium 5.4 MMOL/L (3.5-5.1)
[2021-04-23 04:24] LABS: Basophils # 0.1 10*3/uL (0.0-0.2); Basophils % 0.9 % (0.0-0.8); Eosinophils # 0.1 10*3/uL (0.0-0.87); Eosinophils % 0.7 % (0.00-10.9); Hematocrit 33.7 VOL% (35.7-47.0); Hemoglobin 11.4 GM/DL (12.0-16.0); Immature Granulocytes % 4.5 %; Immature Granulocytes Absolute 0.31 #; Lymphocytes # 0.2 10*3/uL (1.4-4.0); Lymphocytes % 2.8 % (21.3-54.2); Mean Corpuscular HGB Conc 33.8 GM/DL (32-36); Mean Corpuscular Volume 88.9 FL (87-102); Mean Platelet Volume 11.1 FL (9.6-12.0); Monocytes % 2.8 % (1.7-12.7); NRBC # 0.03 10*3/uL; Neutrophils % 88.3 % (38.7-73.9); Platelet Count 112 T/CUMM (130-400); Red Blood Count 3.79 MC/CUMM (3.8-5.5); Red Cell Distribution Width 14.6 % (9.3-17.3); White Blood Count 6.9 T/CUMM (4-12)
[2021-04-23 04:45] LABS: Band Neutrophils 9 % (0-10); Lymphocytes 4 % (20-55); Metamyelocytes 2 %; Microcytosis 1+; Segmented Neutrophils 85 % (50-85); Total Cells Counted 100
[2021-04-23 04:46] LABS: Platelet Estimate Adequate
[2021-04-23] MEDS: INSULIN REGULAR 100 UNIT/ML SUBCUT SCH ×4 (05:48→23:23)
[2021-04-23] MEDS: ARFORMOTEROL 15 MCG/2 ML NEB RESP TX SCH ×2 (07:00→19:19)
[2021-04-23] MEDS: BUDESONIDE 0.5 MG/2 ML NEB RESP TX SCH ×2 (07:00→19:19)
[2021-04-23] MEDS: FLUTICASONE 50 MCG NASAL SPRAY 16 GM BOTTLE BOTH NARES SCH ×2 (08:01→20:46)
[2021-04-23] MEDS: cycloSPORINE OPH EMUL 1 VIAL BOTH EYES SCH ×2 (08:01→20:46)
[2021-04-23] MEDS: BUDESONIDE/FORMOTEROL 160-4.5 INHALER 6 GM INH SCH ×2 (08:01→20:47)
[2021-04-23] MEDS: MENTHOL/ZINC OXIDE OINT 71 GM JAR TOP SCH ×2 (08:01→20:47)
[2021-04-23] MEDS: FAMOTIDINE 20 MG/2 ML VIAL IV SCH ×2 (08:02→20:47)
[2021-04-23] MEDS: ASCORBIC ACID 500 MG TABLET PO SCH ×2 (08:02→20:45)
[2021-04-23] MEDS: CITALOPRAM 20 MG TABLET PO SCH (08:02)
[2021-04-23] MEDS: LACTULOSE 20 GM/30 ML UDCUP PO SCH (08:02)
[2021-04-23] MEDS: OLANZapine 5 MG TABLET PO SCH ×2 (08:02→20:45)
[2021-04-23] MEDS: FONDAPARINUX 2.5 MG/0.5 ML SYRINGE SUBCUT SCH (08:03)
[2021-04-23] MEDS: DEXMEDETOMIDINE 400 MCG in SODIUM CHLORIDE 0.9% 96 ML IV PRN ×2 (08:30→18:09)
[2021-04-23] MEDS: METOPROLOL TARTRATE 50 MG TABLET PO SCH ×2 (09:01→20:45)
[2021-04-23] MEDS ORDERED: DIAZEPAM 5 MG TABLET PO ONE (10:18)
[2021-04-23] MEDS: DEXAMETHASONE 4 MG/1 ML VIAL IV SCH ×2 (10:18→23:27)
[2021-04-23] MEDS ORDERED: lisinopriL 20 MG TABLET PO ONE (10:19)
[2021-04-23] MEDS ORDERED: SODIUM POLYSTYRENE SULFATE 15 GM/60 ML BOTTLE PO ONE (12:42)
[2021-04-23] MEDS ORDERED: AMIODARONE 450 MG/9 ML VIAL IV ONE (12:59)
[2021-04-23] MEDS ORDERED: AMIODARONE 150 MG/3 ML VIAL ONE (12:59)
[2021-04-23] MEDS ORDERED: AMIODARONE INJ 150 MG in DEXTROSE 5% 100 ML IV ONE (13:04)
[2021-04-23] MEDS ORDERED: AMIODARONE INJ 450 MG in DEXTROSE 5% 241 ML IV SCH ×2 (13:14→19:15)
[2021-04-23 14:16] LABS: Arterial Base Excess iSTAT -5 MMOL/L (-2.5-2.5); Arterial Bicarbonate iSTAT 23.5 MMOL/L (20-26); Arterial O2 Saturation iSTAT 100 % (95-100); Arterial PCO2 iSTAT 56 MM HG (35-48); Arterial PO2 iSTAT 330 MM HG (80-95); Arterial Total CO2 iSTAT 25 MMO/L (23-27); Arterial pH iSTAT 7.232 (7.35-7.45)
[2021-04-23 14:45] LABS: Osmolality,Calculated 311.4 MOS/KG (273-304); Potassium 5.9 MMOL/L (3.5-5.1)
[2021-04-23] MEDS: PHENYLEPHRINE DRIP 40 MG/250 ML PREMIX IV PRN (14:45)
[2021-04-23] MEDS: DIAZEPAM 5 MG TABLET PO SCH ×2 (14:48→20:45)
[2021-04-23 18:46] VITALS: BP 135/61
[2021-04-23] MEDS: INSULIN GLARGINE 100 UNIT/ML SUBCUT SCH (20:44)
[2021-04-23] MEDS: SIMVASTATIN 20 MG TABLET PO SCH (20:45)
[2021-04-23] MEDS ORDERED: fentaNYL 100 MCG/2 ML VIAL IV ONE (22:54)
[2021-04-24] MEDS: DEXMEDETOMIDINE 400 MCG in SODIUM CHLORIDE 0.9% 96 ML IV PRN (00:50)
[2021-04-24] MEDS: PHENYLEPHRINE DRIP 40 MG/250 ML PREMIX IV PRN ×3 (01:04→20:40)
[2021-04-24] MEDS: MORPHINE 2 MG/1 ML SYRINGE IV PRN (02:32)
[2021-04-24] MEDS ORDERED: MIDAZOLAM 2 MG/2 ML VIAL IV ONE (04:02)
[2021-04-24 04:18] LABS: Basophils % 0.5 % (0.0-0.8); Eosinophils # 0.1 10*3/uL (0.0-0.87); Eosinophils % 0.8 % (0.00-10.9); Hematocrit 30.6 VOL% (35.7-47.0); Hemoglobin 10.1 GM/DL (12.0-16.0); Immature Granulocytes % 8.5 %; Immature Granulocytes Absolute 0.64 #; Lymphocytes # 0.3 10*3/uL (1.4-4.0); Lymphocytes % 3.7 % (21.3-54.2); Mean Platelet Volume 10.7 FL (9.6-12.0); Monocytes % 3.4 % (1.7-12.7); NRBC # 0.04 10*3/uL; Neutrophils % 83.1 % (38.7-73.9); Platelet Count 108 T/CUMM (130-400); Red Cell Distribution Width 14.6 % (9.3-17.3); White Blood Count 7.5 T/CUMM (4-12)
[2021-04-24 04:26] LABS: Arterial Base Excess iSTAT -3 MMOL/L (-2.5-2.5); Arterial Bicarbonate iSTAT 22.1 MMOL/L (20-26); Arterial O2 Saturation iSTAT 98 % (95-100); Arterial PCO2 iSTAT 41 MM HG (35-48); Arterial PO2 iSTAT 104 MM HG (80-95); Arterial Total CO2 iSTAT 23 MMO/L (23-27); Arterial pH iSTAT 7.343 (7.35-7.45)
[2021-04-24 04:31] LABS: Calcium 9.1 MG/DL (8.5-10.1); Osmolality,Calculated 304.3 MOS/KG (273-304); Potassium 5.1 MMOL/L (3.5-5.1)
[2021-04-24] MEDS: fentaNYL INJ 1,250 MCG in SODIUM CHLORIDE 0.9% 225 ML IV PRN (04:40)
[2021-04-24 05:30] LABS: Band Neutrophils 5 % (0-10); Eosinophils 2 % (0-10); Lymphocytes 5 % (20-55); Nucleated Red Blood Cells 1 (0-5); Segmented Neutrophils 85 % (50-85); Total Cells Counted 100
[2021-04-24 05:31] LABS: Hypochromia Slight; Microcytosis Slight; Platelet Estimate Decreased
[2021-04-24] MEDS: INSULIN REGULAR 100 UNIT/ML SUBCUT SCH ×3 (06:36→18:37)
[2021-04-24] MEDS: ARFORMOTEROL 15 MCG/2 ML NEB RESP TX SCH ×2 (06:52→19:02)
[2021-04-24] MEDS: BUDESONIDE 0.5 MG/2 ML NEB RESP TX SCH ×2 (06:52→19:02)
[2021-04-24 07:58] LABS: Free T4 (Free Thyroxine) 1.01 NG/DL (0.76-1.46)
[2021-04-24] MEDS: LACTULOSE 20 GM/30 ML UDCUP PO SCH (09:04)
[2021-04-24] MEDS: DIAZEPAM 5 MG TABLET PO SCH ×3 (09:04→20:22)
[2021-04-24] MEDS: ASCORBIC ACID 500 MG TABLET PO SCH ×2 (09:04→20:21)
[2021-04-24] MEDS: OLANZapine 5 MG TABLET PO SCH ×2 (09:05→20:21)
[2021-04-24] MEDS: FONDAPARINUX 2.5 MG/0.5 ML SYRINGE SUBCUT SCH (09:05)
[2021-04-24] MEDS: CITALOPRAM 20 MG TABLET PO SCH (09:05)
[2021-04-24] MEDS ORDERED: MIDAZOLAM 100 MG in SODIUM CHLORIDE 0.9% 80 ML IV PRN (09:12)
[2021-04-24] MEDS: FAMOTIDINE 20 MG/2 ML VIAL IV SCH ×2 (09:13→20:23)
[2021-04-24] MEDS: MENTHOL/ZINC OXIDE OINT 71 GM JAR TOP SCH ×2 (09:14→20:22)
[2021-04-24] MEDS: FLUTICASONE 50 MCG NASAL SPRAY 16 GM BOTTLE BOTH NARES SCH ×2 (09:30→20:22)
[2021-04-24] MEDS: cycloSPORINE OPH EMUL 1 VIAL BOTH EYES SCH ×2 (09:30→20:23)
[2021-04-24] MEDS: METOPROLOL TARTRATE 50 MG TABLET PO SCH ×2 (09:30→20:21)
[2021-04-24 12:23] LABS: Arterial Base Excess iSTAT -3 MMOL/L (-2.5-2.5); Arterial Bicarbonate iSTAT 24.6 MMOL/L (20-26); Arterial O2 Saturation iSTAT 96 % (95-100); Arterial PCO2 iSTAT 59 MM HG (35-48); Arterial PO2 iSTAT 103 MM HG (80-95); Arterial Total CO2 iSTAT 26 MMO/L (23-27); Arterial pH iSTAT 7.228 (7.35-7.45)
[2021-04-24] MEDS: DEXAMETHASONE 4 MG/1 ML VIAL IV SCH (13:42)
[2021-04-24] MEDS: BUDESONIDE/FORMOTEROL 160-4.5 INHALER 6 GM INH SCH ×2 (13:42→20:22)
[2021-04-24] MEDS: METOCLOPRAMIDE 10 MG/2 ML VIAL IV SCH (18:37)
[2021-04-24] MEDS: SIMVASTATIN 20 MG TABLET PO SCH (20:22)
[2021-04-24] MEDS: INSULIN GLARGINE 100 UNIT/ML SUBCUT SCH (21:00)
[2021-04-25] MEDS: INSULIN REGULAR 100 UNIT/ML SUBCUT SCH ×5 (01:22→23:45)
[2021-04-25] MEDS: DEXAMETHASONE 4 MG/1 ML VIAL IV SCH ×3 (01:23→23:47)
[2021-04-25] MEDS: METOCLOPRAMIDE 10 MG/2 ML VIAL IV SCH ×5 (01:23→23:45)
[2021-04-25] MEDS: PHENYLEPHRINE DRIP 40 MG/250 ML PREMIX IV PRN ×2 (03:00→08:40)
[2021-04-25] MEDS: fentaNYL INJ 1,250 MCG in SODIUM CHLORIDE 0.9% 225 ML IV PRN ×2 (03:21→14:00)
[2021-04-25 03:39] LABS: Basophils # 0.1 10*3/uL (0.0-0.2); Basophils % 0.6 % (0.0-0.8); Eosinophils % 0.2 % (0.00-10.9); Hemoglobin 9.7 GM/DL (12.0-16.0); Immature Granulocytes Absolute 0.71 #; Lymphocytes # 0.4 10*3/uL (1.4-4.0); Lymphocytes % 4.3 % (21.3-54.2); Mean Corpuscular HGB Conc 32.3 GM/DL (32-36); Mean Corpuscular Volume 92.6 FL (87-102); Mean Platelet Volume 10.9 FL (9.6-12.0); Monocytes % 3.2 % (1.7-12.7); NRBC # 0.03 10*3/uL; Neutrophils % 83.7 % (38.7-73.9); Platelet Count 116 T/CUMM (130-400); Red Blood Count 3.24 MC/CUMM (3.8-5.5); Red Cell Distribution Width 14.9 % (9.3-17.3); White Blood Count 8.9 T/CUMM (4-12)
[2021-04-25 03:59] LABS: Albumin 1.9 G/DL (3.4-5.0); Bilirubin,Total 0.9 MG/DL (0.20-1.00); Calcium 8.4 MG/DL (8.5-10.1); Osmolality,Calculated 313.7 MOS/KG (273-304); Potassium 4.6 MMOL/L (3.5-5.1); Total Protein 5.5 G/DL (6.4-8.2)
[2021-04-25 04:10] LABS: Band Neutrophils 5 % (0-10); Hypochromia Slight; Lymphocytes 6 % (20-55); Metamyelocytes 2 %; Microcytosis 1+; Myelocytes 1 %; Segmented Neutrophils 86 % (50-85); Total Cells Counted 100
[2021-04-25 04:11] LABS: Platelet Estimate Adequate; Polychromasia Slight
[2021-04-25 04:25] LABS: Arterial Base Excess iSTAT -4 MMOL/L (-2.5-2.5); Arterial Bicarbonate iSTAT 23.3 MMOL/L (20-26); Arterial O2 Saturation iSTAT 98 % (95-100); Arterial PCO2 iSTAT 57 MM HG (35-48); Arterial PO2 iSTAT 122 MM HG (80-95); Arterial Total CO2 iSTAT 25 MMO/L (23-27); Arterial pH iSTAT 7.216 (7.35-7.45)
[2021-04-25] MEDS: BUDESONIDE 0.5 MG/2 ML NEB RESP TX SCH ×2 (08:00→19:26)
[2021-04-25] MEDS: ARFORMOTEROL 15 MCG/2 ML NEB RESP TX SCH ×2 (08:00→19:26)
[2021-04-25] MEDS: LACTULOSE 20 GM/30 ML UDCUP PO SCH (08:47)
[2021-04-25] MEDS: ASCORBIC ACID 500 MG TABLET PO SCH ×2 (08:48→20:35)
[2021-04-25] MEDS: DIAZEPAM 5 MG TABLET PO SCH ×3 (08:48→20:36)
[2021-04-25] MEDS: METOPROLOL TARTRATE 50 MG TABLET PO SCH ×2 (08:48→20:36)
[2021-04-25] MEDS: OLANZapine 5 MG TABLET PO SCH ×2 (08:49→20:35)
[2021-04-25] MEDS: FONDAPARINUX 2.5 MG/0.5 ML SYRINGE SUBCUT SCH (08:49)
[2021-04-25] MEDS: FAMOTIDINE 20 MG/2 ML VIAL IV SCH ×2 (08:50→20:34)
[2021-04-25] MEDS: FLUTICASONE 50 MCG NASAL SPRAY 16 GM BOTTLE BOTH NARES SCH ×2 (10:06→20:36)
[2021-04-25] MEDS: BUDESONIDE/FORMOTEROL 160-4.5 INHALER 6 GM INH SCH ×2 (10:06→20:36)
[2021-04-25] MEDS: CITALOPRAM 20 MG TABLET PO SCH (10:06)
[2021-04-25] MEDS: cycloSPORINE OPH EMUL 1 VIAL BOTH EYES SCH ×2 (10:06→20:37)
[2021-04-25] MEDS: MENTHOL/ZINC OXIDE OINT 71 GM JAR TOP SCH ×2 (10:06→20:36)
[2021-04-25] MEDS: INSULIN GLARGINE 100 UNIT/ML SUBCUT SCH (20:35)
[2021-04-25] MEDS: SIMVASTATIN 20 MG TABLET PO SCH (20:36)
[2021-04-26 03:46] LABS: Calcium 8.6 MG/DL (8.5-10.1); Osmolality,Calculated 317.3 MOS/KG (273-304); Potassium 5.1 MMOL/L (3.5-5.1)
[2021-04-26 03:57] LABS: Arterial Base Excess iSTAT -2 MMOL/L (-2.5-2.5); Arterial Bicarbonate iSTAT 24.5 MMOL/L (20-26); Arterial O2 Saturation iSTAT 99 % (95-100); Arterial PCO2 iSTAT 50 MM HG (35-48); Arterial PO2 iSTAT 133 MM HG (80-95); Arterial Total CO2 iSTAT 26 MMO/L (23-27); Arterial pH iSTAT 7.294 (7.35-7.45)
[2021-04-26 05:00] LABS: Eosinophils % 0.3 % (0.00-10.9); Hemoglobin 8.9 GM/DL (12.0-16.0); Immature Granulocytes % 4.2 %; Immature Granulocytes Absolute 0.13 #; Lymphocytes # 0.2 10*3/uL (1.4-4.0); Lymphocytes % 7.8 % (21.3-54.2); Mean Corpuscular Volume 91.8 FL (87-102); Mean Platelet Volume 11.5 FL (9.6-12.0); Monocytes % 3.2 % (1.7-12.7); NRBC # 0.05 10*3/uL; Neutrophils % 84.5 % (38.7-73.9); Platelet Count 66 T/CUMM (130-400); Red Blood Count 2.94 MC/CUMM (3.8-5.5); Red Cell Distribution Width 14.6 % (9.3-17.3); White Blood Count 3.1 T/CUMM (4-12)
[2021-04-26] MEDS: fentaNYL INJ 1,250 MCG in SODIUM CHLORIDE 0.9% 225 ML IV PRN (05:08)
[2021-04-26] MEDS: hydrALAZINE 20 MG/1 ML VIAL IV PRN ×2 (05:09→11:00)
[2021-04-26] MEDS: MORPHINE 2 MG/1 ML SYRINGE IV PRN ×4 (05:40→20:28)
[2021-04-26] MEDS: METOCLOPRAMIDE 10 MG/2 ML VIAL IV SCH ×2 (05:52→13:55)
[2021-04-26] MEDS: INSULIN REGULAR 100 UNIT/ML SUBCUT SCH ×2 (05:52→12:30)
[2021-04-26 06:34] LABS: Band Neutrophils 5 % (0-10); Lymphocytes 6 % (20-55); Metamyelocytes 1 %; Segmented Neutrophils 85 % (50-85); Total Cells Counted 100
[2021-04-26 06:35] LABS: Hypochromia 2+; Platelet Estimate Decreased
[2021-04-26] MEDS: ARFORMOTEROL 15 MCG/2 ML NEB RESP TX SCH (07:51)
[2021-04-26] MEDS: BUDESONIDE 0.5 MG/2 ML NEB RESP TX SCH (07:51)
[2021-04-26] MEDS ORDERED: FUROSEMIDE 40 MG/4 ML VIAL IV ONE (08:43)
[2021-04-26] MEDS ORDERED: fentaNYL 25 MCG/HR PATCH TRANSDERM SCH (09:00)
[2021-04-26] MEDS: CITALOPRAM 20 MG TABLET PO SCH (09:04)
[2021-04-26] MEDS: MENTHOL/ZINC OXIDE OINT 71 GM JAR TOP SCH ×2 (09:04→20:28)
[2021-04-26] MEDS: FLUTICASONE 50 MCG NASAL SPRAY 16 GM BOTTLE BOTH NARES SCH ×2 (09:04→20:28)
[2021-04-26] MEDS: LACTULOSE 20 GM/30 ML UDCUP PO SCH (09:04)
[2021-04-26] MEDS: FONDAPARINUX 2.5 MG/0.5 ML SYRINGE SUBCUT SCH (09:04)
[2021-04-26] MEDS: cycloSPORINE OPH EMUL 1 VIAL BOTH EYES SCH ×2 (09:05→20:28)
[2021-04-26] MEDS: METOPROLOL TARTRATE 50 MG TABLET PO SCH ×2 (09:05→20:28)
[2021-04-26] MEDS: FAMOTIDINE 20 MG/2 ML VIAL IV SCH ×2 (09:05→20:28)
[2021-04-26] MEDS: BUDESONIDE/FORMOTEROL 160-4.5 INHALER 6 GM INH SCH (09:06)
[2021-04-26] MEDS: OLANZapine 5 MG TABLET PO SCH (09:07)
[2021-04-26] MEDS: ASCORBIC ACID 500 MG TABLET PO SCH (09:07)
[2021-04-26] MEDS: DIAZEPAM 5 MG TABLET PO SCH (09:07)
[2021-04-26] MEDS: DEXAMETHASONE 4 MG/1 ML VIAL IV SCH (12:00)
[2021-04-26] MEDS: SIMVASTATIN 20 MG TABLET PO SCH (20:46)
[2021-04-27] MEDS: MORPHINE 2 MG/1 ML SYRINGE IV PRN ×4 (00:02→23:54)
[2021-04-27] MEDS: DIAZEPAM 5 MG TABLET PO SCH (00:07)
[2021-04-27] MEDS: MENTHOL/ZINC OXIDE OINT 71 GM JAR TOP SCH ×2 (08:35→21:16)
[2021-04-27] MEDS: NIFEdipine 10 MG CAPSULE PO SCH ×3 (08:50→21:12)
[2021-04-27] MEDS: CITALOPRAM 20 MG TABLET PO SCH (08:50)
[2021-04-27] MEDS: METOPROLOL TARTRATE 50 MG TABLET PO SCH ×2 (08:50→21:13)
[2021-04-27] MEDS: FLUTICASONE 50 MCG NASAL SPRAY 16 GM BOTTLE BOTH NARES SCH ×2 (08:51→21:16)
[2021-04-27] MEDS: FAMOTIDINE 20 MG/2 ML VIAL IV SCH ×2 (08:51→21:15)
[2021-04-27] MEDS: cycloSPORINE OPH EMUL 1 VIAL BOTH EYES SCH ×2 (08:52→21:17)
[2021-04-27] MEDS: SIMVASTATIN 20 MG TABLET PO SCH (21:12)
[2021-04-28] MEDS: LORazepam 2 MG/1 ML VIAL IV PRN ×2 (03:28→09:31)
[2021-04-28] MEDS: MORPHINE 2 MG/1 ML SYRINGE IV PRN ×3 (06:05→10:03)
[2021-04-28] MEDS: FAMOTIDINE 20 MG/2 ML VIAL IV SCH (08:21)
[2021-04-28] MEDS: CITALOPRAM 20 MG TABLET PO SCH (08:21)
[2021-04-28] MEDS: NIFEdipine 10 MG CAPSULE PO SCH (08:21)
[2021-04-28] MEDS: METOPROLOL TARTRATE 50 MG TABLET PO SCH (08:21)
[2021-04-28] MEDS: MENTHOL/ZINC OXIDE OINT 71 GM JAR TOP SCH (08:22)
[2021-04-28] MEDS: FLUTICASONE 50 MCG NASAL SPRAY 16 GM BOTTLE BOTH NARES SCH (08:22)
[2021-04-28] MEDS: cycloSPORINE OPH EMUL 1 VIAL BOTH EYES SCH (08:22)
== END 2021-04-28 11:29 | disposition expired | DRG 4 ==
LOC: EDUNIT# → N.EDINP 17:33 → N.5E 17:33 → N.ED 17:33 → SUATTDRO 20:40 → N.5E 22:08 → SUATTDRO 03-25 09:49 → N.ICU 03-25 09:55
PROVIDERS: ADMIT Internal Medicine; ATTEND Family Medicine